=== PATIENT | male | born 1965 | race Caucasian/White ===

== ENCOUNTER 2017-12-10 14:03 | Inpatient (IN) | END 2017-12-16 12:14 | disposition home or self-care (01) | DRG 642 ==

== ENCOUNTER 2018-03-05 01:03 | Inpatient (IN) | END 2018-03-05 19:00 | disposition home or self-care (01) | DRG 440 ==

== ENCOUNTER 2018-03-11 11:53 | Inpatient (IN) | END 2018-03-13 18:30 | disposition home or self-care (01) | DRG 642 ==

== ENCOUNTER 2018-06-26 16:49 | Inpatient (IN) | payer OTHER ==
[~2018-06-26] VITALS: Ht 175.3 cm; Wt 93.8 kg
[~2018-06-26 16:49] MED LIST: ALBU90AE INHALATION; ATEN-51 PO; ATOR-2 PO; CLON-412 PO; DULO30CA45 PO; GABA400C14 PO; GEMF600T8 PO; HYDR-843 PO; HYDR2TAB3 PO; ICOS1CAP PO; INSU100C SQ; INSU100I33 SC; LIDO700A29 TP; LIRA0.6P2 SQ; LISI10TA2 PO; METF-849 PO; METO10TA3 PO; NOVO3I SC; OMEG-157 PO; OXYC-438 PO; PANT40TA4 PO; PHEN37.53 PO; RANI-513 PO; SUMA5SPR2 NASAL; TERB250T46 PO; ZOLP10TA5 PO; [UNRECOGNIZED DRUG - CODE] TOP
[2018-06-26] MEDS ORDERED: ASPIRIN 81 MG TAB PO STA (18:46)
[2018-06-26] MEDS ORDERED: NITROGLYCERIN 2% 1 GM OINT PKT TD STA (18:46)
[2018-06-26] MEDS ORDERED: ONDANSETRON 4 MG INJ IV STA (18:52)
[2018-06-26] MEDS ORDERED: HYDROmorphONE 2 MG/ML SYG IV STA ×2 (18:52→21:34)
[2018-06-26] MEDS ORDERED: NITROGLYCERIN (SL) 0.4 MG TAB SL PRN ×2 (19:00→20:30)
--- NOTE | 2018-06-26 20:23 | ERD ---
ER Documentation Chief Complaint Chief Complaint CHEST PAIN , ONSET 1200 TODAY , LT ARM NUMBNESS X FEW DAYS HPI Patient is a 53-year-old male with familiar hypertriglyceridemia, diabetes, and hypertension as well as smoking who presents with chest pain. Symptoms started today at 12 PM. His triglycerides were 3195 on June 22. He has midepigastric pain and describes a "pressure" in his midsternal area which radiates to his back. He says the symptoms have been constant. Upon review of old medical records this is the patient's fourth visit to the ER since 2018. ROS All systems reviewed and are negative except as per history of present illness. Medications Home Meds Active Scripts Pantoprazole (Protonix) 40 Mg Tabec, 40 MG PO DAILY for 30 Days, #30 TAB 4 Refills Prov:CHANTELLE PARRA MD 12/16/17 Atenolol* (Atenolol*) 25 Mg Tablet, 25 MG PO BID for 30 Days, #60 TAB 5 Refills Prov:CHANTELLE PARRA MD 12/16/17 Rogers-3/Dha/Epa/Fish Oil (FISH OIL EC 1,000 MG SOFTGEL) 1 Each Capsule.dr, 2000 MG PO BID for 30 Days, #60 CAP 4 Refills Prov:CHANTELLE PARRA MD 12/16/17 Lidocaine (Lidoderm) 1 Each Adh..patch, 1 EACH TP DAILY for 30 Days, #30 PATCH 6 Refills Prov:CHANTELLE PARRA MD 12/16/17 Oxycodone HCl/Acetaminophen (Oxycodone-Acetaminophen 5-325) 1 Each Tablet, 1 TAB PO Q6H PRN for PAIN LEVEL 4-6 for 7 Days, #20 TAB Prov:CHANTELLE PARRA MD 12/16/17 Neomycin/Polymyxin/Bacitr/Hc* (Cortisporin* Topical) 15 Gm Oint, 1 APPLIC TOP TID for 10 Days, #1 TUB 2 Refills Prov:CHANTELLE PARRA MD 12/16/17 Metformin* (Glucophage*) 500 Mg Tab, 500 MG PO BID WITH MEALS for 30 Days, #60 TAB 3 Refills Prov:CHANTELLE PARRA MD 12/16/17 Insulin Aspart* (Novolog Insulin Pen*) 100 Unit/Ml Soln, 10 UNIT SC WITH MEALS for 30 Days, #5 EA 5 Refills Prov:CHANTELLE PARRA MD 12/16/17 Gemfibrozil* (Gemfibrozil*) 600 Mg Tablet, 600 MG PO BID for 30 Days, #60 TAB 3 Refills Prov:CHANTELLE PARRA MD 12/14/17 Reported Medications Phentermine Hcl (Phentermine Hcl) 37.5 Mg Tablet, 37.5 MG PO DAILY, TAB 03/12/18 Icosapent Ethyl (VASCEPA) 1 Gm Capsule, 3 GM PO TIDM A, CAP 03/08/18 Ranitidine Hcl* (Ranitidine Hcl*) 75 Mg Tablet, 150 MG PO BID PRN for HEARTBURN, #60 TAB 03/05/18 Lisinopril* (Lisinopril*) 10 Mg Tablet, 10 MG PO DAILY, #30 TAB 03/05/18 Atorvastatin* (Atorvastatin*) 80 Mg Tablet, MG PO QHS, #30 TAB 03/05/18 Phentermine Hcl (Phentermine Hcl) 37.5 Mg Tablet, 37.5 MG PO DAILY, TAB 03/05/18 Insulin Lispro (Humalog) 100 Unit/1 Ml Cartridge, 5 UNIT SQ AC A, EA 03/05/18 Terbinafine* (Lamisil*) 250 Mg Tablet, 250 MG PO DAILY, TAB 12/10/17 Metoclopramide Hcl* (Metoclopramide Hcl*) 10 Mg Tablet, 10 MG PO Q8H PRN for NAUSEA AND OR VOMITING, TAB 12/10/17 Gabapentin* (Gabapentin*) 400 Mg Capsule, 400 MG PO TID, #90 CAP 12/10/17 Liraglutide (Victoza 3-Alvaro) 0.6 Mg/0.1 Ml Pen.injctr, 1.8 MG SQ DAILY, SYR 12/10/17 Sumatriptan* Nasal (Sumatriptan* Nasal) 5 Mg [place], 5 MG NASAL DAILY PRN for MIGRAINE HEADACHE, SPRAY If headache returns/persists, may repeat dose once after 2 hours; MAX 40 mg/24 hours 12/10/17 Clonazepam* (Klonopin*) 1 Mg Tablet, 1 MG PO QID PRN for ANXIETY, TAB 12/10/17 Hydromorphone Hcl* (Hydromorphone Hcl*) 2 Mg Tablet, 2 MG PO TID PRN for PAIN, TAB 12/10/17 Duloxetine Hcl* (Cymbalta*) 30 Mg Capsule.dr, 60 MG PO DAILY, CAP 12/10/17 Insulin Glargine,Hum.rec.anlog (Basaglar Kwikpen U-100) 100 Unit/1 Ml Insuln.pen, 20 UNIT SC QHS, EA 12/10/17 Zolpidem Tartrate* (Zolpidem Tartrate*) 10 Mg Tablet, 10 MG PO QHS PRN for INSOMNIA, #30 TAB 12/10/17 Albuterol Sulfate (Proair Respiclick) 90 Mcg Aer.pow.ba, 1 PUFF INHALATION Q4, #1 BOTTLE 12/10/17 Hydroxyzine Hcl* (Hydroxyzine Hcl*) 25 Mg Tablet, 25 MG PO Q8H PRN for ITCHING, #30 TAB 12/10/17 Allergies Allergies: Coded Allergies: hydrocodone (Verified Allergy, Unknown, 12/10/17) morphine (Verified Allergy, Unknown, 12/10/17) PMhx/Soc History of Surgery: Yes (knee) Anesthesia Reaction: No Hx Neurological Disorder: Yes (neuropathy) Hx Respiratory Disorders: No Hx Cardiac Disorders: Yes (hypertension) Hx Psychiatric Problems: No Hx Alcohol Use: No Hx Substance Use: No Hx Tobacco Use: Yes Smoking Status: Current some day smoker FmHx Family History: coronary disease Physical Exam Vitals Vital Signs Date Temp Pulse Resp B/P (MAP) Pulse Ox O2 O2 Flow FiO2 Time Delivery Rate 06/26/18 97.1 121 18 162/98 100 16:52 (119) Physical Exam Const: No acute distress Head: Atraumatic Eyes: Normal Conjunctiva ENT: Normal External Ears, Nose and Mouth. Neck: Full range of motion. No meningismus. Resp: Clear to auscultation bilaterally Cardio: Regular rate and rhythm, no murmurs Abd: Soft, non tender, non distended. Normal bowel sounds Skin: No petechiae or rashes Back: No midline or flank tenderness Ext: No cyanosis, or edema Neur: Awake and alert Psych: Tearful at times Result Diagram: 06/26/18190906/26/181909 Results 24 hrs Laboratory Tests Test 06/26/18 19:10 White Blood Count 7.3 10^3/ul Red Blood Count 5.22 10^6/ul Hemoglobin 16.0 g/dl Hematocrit 46.1 % Mean Corpuscular Volume 88.3 fl Mean Corpuscular Hemoglobin 30.7 pg Mean Corpuscular Hemoglobin Concent 34.7 g/dl Red Cell Distribution Width 12.7 % Platelet Count 207 10^3/UL Mean Platelet Volume 10.3 fl Immature Granulocytes % 0.500 % Neutrophils % 66.0 % Lymphocytes % 26.0 % Monocytes % 6.4 % Eosinophils % 0.8 % Basophils % 0.3 % Nucleated Red Blood Cells % 0.0 /100WBC Immature Granulocytes # 0.040 10^3/ul Neutrophils # 4.8 10^3/ul Lymphocytes # 1.9 10^3/ul Monocytes # 0.5 10^3/ul Eosinophils # 0.1 10^3/ul Basophils # 0.0 10^3/ul Nucleated Red Blood Cells # 0.0 10^3/ul Sodium Level 136 mmol/L Potassium Level 4.1 mmol/L Chloride Level 103 mmol/L Carbon Dioxide Level 24 mmol/L Anion Gap 9 Blood Urea Nitrogen 9 mg/dl Creatinine 0.83 mg/dl Est Glomerular Filtrat Rate mL/min > 60 mL/min Glucose Level 189 mg/dl Calcium Level 9.6 mg/dl Troponin I < 0.012 ng/ml Triglycerides Level > 1575 mg/dl Cholesterol Level 239 mg/dl LDL Cholesterol, Calculated mg/dl HDL Cholesterol 25 mg/dl Cholesterol/HDL Ratio 9.5 RATIO Current Medications Medications Dose Sig/Hayes Start Time Status Last (Trade) Ordered Route PRN Stop Time Admin Dose Reason Admin Aspirin 162 mg ONCE STAT 06/26/18 DC 06/26/18 (Aspirin) PO 18:46 19:24 06/26/18 18:47 1 inch ONCE STAT 06/26/18 DC 06/26/18 Nitroglycerin TD 18:46 19:24 06/26/18 18:47 (Nitroglyceri n 2% Oint) 1 tab Q5M UP TO 3 06/26/18 Nitroglycerin DOSES PRN 19:00 SL .CHEST (Nitroglyceri PAIN n (Sl Tab) 0.4 Mg) 1 mg ONCE STAT 06/26/18 DC 06/26/18 Hydromorphone IV 18:52 19:24 HCl 06/26/18 18:53 (Dilaudid) Ondansetron 4 mg ONCE STAT 06/26/18 DC 06/26/18 HCl (Zofran IV 18:52 19:23 Inj) 06/26/18 18:53 Procedures/MDM EKG read by me: Rate/Rhythm: Sinus tachycardia Intervals: Normal Impression: Tachycardia without ischemia Chest x-ray read by radiology. Smoking Cessation Therapy: Pt. was lectured for greater than 3 minutes on the health risks of continued smoking and the benefits of cessation. Patient is a 53-year-old male with multiple cardiac risk factors who presents with chest pain. Initial troponin is negative. His triglycerides are extremely high however. The patient will be admitted to the care of Dr. Sun to the ICU. He was given aspirin and nitroglycerin. He will be given 1 L of normal saline for fluid resuscitation. Dr. Clark is his specimen accessioner. Critical Care: Time: 35 minutes excluding all billable procedures. Treatments/Evaluations: Close monitoring and treatment of unstable vital signs, cardiorespiratory, and neurologic status, while maintaining tight balance of fluid, respiratory, and cardiac interventions. Departure Diagnosis: Primary Impression: Hypertriglyceridemia Additional Impression: Chest pain Chest pain type: unspecified Qualified Codes: R07.9 - Chest pain, unspec ified Condition: TONY Tran MD Jun 26, 2018 20:23
[2018-06-26] MEDS ORDERED: NACL 0.9% 3 ML SYG IV SCH (20:30)
[2018-06-26] MEDS ORDERED: ONDANSETRON 4 MG INJ IV PRN (20:30)
[2018-06-26] MEDS ORDERED: DEXTROSE 50% 50 ML SYRINGE IV PRN ×2 (20:30)
[2018-06-26] MEDS ORDERED: INSULIN HUMAN REGULAR 100 UNIT in SOD CHLORIDE 0.9% 99 ML IV SCH (20:30)
[2018-06-26] MEDS ORDERED: morphine 2 MG INJ IV PRN (20:30)
[2018-06-26] MEDS ORDERED: LORAZEPAM 2 MG INJ IV PRN (21:00)
[2018-06-26] MEDS ORDERED: LABETALOL HCL 20MG INJ IV PRN (21:00)
[2018-06-26] MEDS ORDERED: ALBUTEROL/IPRATROPIUM (NEB) 3 ML AMP HHN PRN (21:00)
--- NOTE | 2018-06-26 21:25 | HP ---
Date/Time of Note Date/Time of Note DATE: 06/26/18 TIME: 21:24 Assessment/Plan VTE Prophylaxis Pharmacological prophylaxis: other Lines/Catheters IV Catheter Type (from Nrsg): Saline Lock Assessment/Plan Hospital Course Objective Physical exam General: Patient is laying in bed and answers questions appropriately, very anxious Mentation: Patient is alert and oriented 4, Head: Normocephalic atraumatic Eyes: EOMI, pupils reactive to light Neck: Supple, nontender, midline Respiratory: Clear to auscultation bilaterally Cardiovascular: Tachycardic rate, no obvious murmurs Gastrointestinal: non-tender to palpation, bowel sounds heard. Neurological: Moves all extremities spontaneously Skin: No new skin lesions Assessment and plan Chest pain -Trend troponins -Aspirin -Statin -EKG noted Epigastric pain -Lipase negative -Monitor -Continue Protonix Hypertriglyceridemia -ICU for insulin drip -Day team physician will need to arrange plasmapheresis as in the past this is the only way that his triglycerides decreased -Atorvastatin, fish oil, gemfibrozil continued Left upper extremity numbness -Likely secondary to patient's worsening peripheral neuropathy however will need to rule out CVA, CT head pending, stat Peripheral neuropathy -Continue gabapentin Tachycardia -Patient is very anxious, use Ativan as needed Anxiety -IV Ativan as needed Substance abuse, history of -Urine drug screen pending Diabetes mellitus -Patient will be on insulin drip for elevated triglycerides Hypertension -Control as needed, resume home meds Disposition -Send to the ICU for insulin drip for hypertriglyceridemia, the team physician will need to arrange plasmapheresis Result Diagram: 06/26/18190906/26/181909 Results 24hrs Laboratory Tests Test 06/26/18 19:10 White Blood Count 7.3 # Red Blood Count 5.22 Hemoglobin 16.0 Hematocrit 46.1 Mean Corpuscular Volume 88.3 Mean Corpuscular Hemoglobin 30.7 Mean Corpuscular Hemoglobin Concent 34.7 Red Cell Distribution Width 12.7 Platelet Count 207 Mean Platelet Volume 10.3 Immature Granulocytes % 0.500 H Neutrophils % 66.0 Lymphocytes % 26.0 Monocytes % 6.4 Eosinophils % 0.8 Basophils % 0.3 Nucleated Red Blood Cells % 0.0 Immature Granulocytes # 0.040 H Neutrophils # 4.8 Lymphocytes # 1.9 Monocytes # 0.5 Eosinophils # 0.1 Basophils # 0.0 Nucleated Red Blood Cells # 0.0 Sodium Level 136 Potassium Level 4.1 Chloride Level 103 Carbon Dioxide Level 24 Anion Gap 9 Blood Urea Nitrogen 9 Creatinine 0.83 Est Glomerular Filtrat Rate mL/min > 60 Glucose Level 189 Calcium Level 9.6 Troponin I < 0.012 Triglycerides Level > 1575 H Cholesterol Level 239 H LDL Cholesterol, Calculated HDL Cholesterol 25 L Cholesterol/HDL Ratio 9.5 Lipase 121 HPI/ROS Admit Date/Time Admit Date/Time Hx of Present Illness Patient is a male with past medical history significant for familial trait hypertriglyceridemia, diabetes mellitus, hypertension, chronic pain in the back, substance abuse, severe anxiety who presents to [facility] for chest and abdominal pain. Patient states for the past 2 days and have patient has been having worsening of his chronic pancreatitis pain in his epigastric area as well as a substernal pressure as well as new onset numbness in the left upper extremity. Patient stated that he did not come in before because he thought the numbness was secondary to his chronic neuropathy however he is concerned. Patient also says that he has had some nausea and worsening of his back pain. Patient states he continues to see all his doctors and takes his medications on a normal basis. Patient denies any new symptoms regarding his lower extremity neuropathy, denies headache, denies dizziness. PMH/Family/Social Past Medical History Medications Current Medications Nitroglycerin (Nitroglycerin (Sl Tab) 0.4 Mg) 1 tab Q5M UP TO 3 DOSES PRN SL .CHEST PAIN; Start 06/26/18 at 19:00 Dextrose/Sodium Chloride 1,000 ml @ 125 mls/hr Q8H IV ; Start 06/26/18 at 20:26 IV Flush (NS 3 ml) 3 ml PER PROTOCOL IV ; Start 06/26/18 at 20:30 Ondansetron HCl (Zofran Inj) 4 mg Q6H PRN IV NAUSEA/VOMITING; Start 06/26/18 at 20:30 Nitroglycerin (Nitroglycerin (Sl Tab) 0.4 Mg) 1 tab Q5M PRN SL .CHEST PAIN; Start 06/26/18 at 20:30 Oxycodone/ Acetaminophen (Percocet (5/ 325)) 1 tab Q6H PRN PO .PAINS 4-6; Start 06/26/18 at 20:30 Diagnostic Test (Pha) (Accu-Chek) 1 ea Q1H XX ; Start 06/26/18 at 20:30 Insulin Human Regular 100 unit/ Sodium Chloride 100 ml @ 0 mls/hr PER PROTOCOL IV ; Start 06/26/18 at 20:30 Miscellaneous Information (* Miscellaneous Pharmacy Order) Treatment of Hypoglycemia: 1.BG 51... Per protocol XX ; Start 06/26/18 at 20:30 Dextrose (D50w Syringe) 25 ml Q15M PRN IV .DECREASED GLUCOSE; Start 06/26/18 at 20:30 Dextrose (D50w Syringe) 50 ml Q15M PRN IV .DECREASED GLUCOSE; Start 06/26/18 at 20:30 Hydromorphone HCl (Dilaudid) 0.5 mg Q4H PRN IV SEVERE PAIN LEVEL 7-10; Start 06/26/18 at 20:30 Atorvastatin Calcium (Lipitor) 80 mg HS PO ; Start 06/26/18 at 21:00 Albuterol/ Ipratropium (Duoneb) 3 ml Q4H RESP THERAPY PRN HHN SHORTNESS OF BREATH; Start 06/26/18 at 21:00 Lisinopril (Zestril) 10 mg DAILY PO ; Start 06/27/18 at 09:00 Lorazepam (Ativan) 0.5 mg Q6H PRN IV anxiety; Start 06/26/18 at 21:00 Duloxetine HCl (Cymbalta) 60 mg DAILY PO ; Start 06/27/18 at 09:00 Labetalol HCl (Labetalol) 10 mg Q4 PRN IV sbp >160; Start 06/26/18 at 21:00 Gemfibrozil (Lopid) 600 mg BID PO ; Start 06/26/18 at 21:00 Pantoprazole (Protonix Iv) 40 mg DAILY@06 IV ; Start 06/27/18 at 06:00 Atenolol (Tenormin) 25 mg BID PO ; Start 06/26/18 at 21:30 Aspirin (Aspirin) 81 mg DAILY PO ; Start 06/27/18 at 09:00 Fish Oil (Fish Oil) 2,000 mg BID PO ; Start 06/27/18 at 09:00 Niacin (Niacin) 100 mg DAILY PO ; Start 06/27/18 at 09:00 Coded Allergies: hydrocodone (Verified Allergy, Unknown, 12/10/17) morphine (Verified Allergy, Unknown, 12/10/17) Past Surgical History Past Surgical Hx: no surgical history Family History Significant Family History: heart disease Social History Smoking Status: Current some day smoker Exam/Review of Systems Vital Signs Vitals Vital Signs Date Temp Pulse Resp B/P (MAP) Pulse Ox O2 O2 Flow FiO2 Time Delivery Rate 06/26/18 97.1 121 18 162/98 100 16:52 (119) SUGAR GILES Jun 26, 2018 21:25
[2018-06-26] MEDS: ACCU-CHEK XX SCH ×3 (21:30→23:10)
[2018-06-26] MEDS ORDERED: LORAZEPAM 2 MG INJ IV ONE (22:00)
[2018-06-26 23:00] VITALS: BP 132/74; PULSE 133; RESP 18; Ht 175.3 cm; Wt 93.8 kg
[2018-06-26] MEDS: DEXTROSE 5%-0.45% NACL 1,000 ML IV SCH (23:08)
[2018-06-26] MEDS: ATORVASTATIN 80 MG TAB PO SCH (23:14)
[2018-06-26] MEDS: GEMFIBROZIL 600 MG TAB PO SCH (23:15)
[2018-06-26] MEDS: ATENOLOL 25 MG TAB PO SCH (23:15)
[2018-06-26] MEDS: HYDROmorphONE 0.5 MG/0.5 ML SYG IV PRN (23:53)
[2018-06-26] MEDS: ZOLPIDEM 5 MG TAB PO PRN (23:53)
[2018-06-27] VITALS (23 sets, daily range): BP systolic 82–135; BP diastolic 45–90; PULSE 67–116; RESP 13–33
[2018-06-27] MEDS: ACCU-CHEK XX SCH ×20 (00:07→18:30)
[2018-06-27] MEDS: HYDROmorphONE 0.5 MG/0.5 ML SYG IV PRN ×2 (04:59→16:13)
[2018-06-27] MEDS ORDERED: PANTOPRAZOLE (EC) 40 MG TAB PO SCH (06:00)
[2018-06-27] MEDS: PANTOPRAZOLE 40 MG INJ IV SCH (06:08)
[2018-06-27] MEDS: DEXTROSE 5%-0.45% NACL 1,000 ML IV SCH ×3 (06:08→23:17)
--- NOTE | 2018-06-27 08:47 | PN ---
Date/Time of Note Date/Time of Note DATE: 06/27/18 TIME: 08:34 Assessment/Plan VTE Prophylaxis SCD applied (from Nsg): Yes Pharmacological prophylaxis: other Lines/Catheters IV Catheter Type (from Nrsg): Peripheral IV Assessment/Plan Hospital Course S: Pt still on insulin drip. O: VS - see below Physical exam General: Patient lying in bed, somewhat anxious Mentation: Patient is alert and oriented 4, Head: Normocephalic atraumatic Eyes: EOMI, pupils reactive to light Neck: Supple, nontender, midline Respiratory: Clear to auscultation bilaterally Cardiovascular: Tachycardic rate, no obvious murmurs Gastrointestinal: non-tender to palpation, bowel sounds heard. Neurological: Moves all extremities spontaneously Assessment and plan: 53 M p/w: # Chest pain- troponins neg x 2 thus far-EKG noted -Aspirin, monitor 3rd trop -Statin # Epigastric pain-Lipase negative -Monitor -Continue Protonix # Hypertriglyceridemia - familial, TG today > 1575 -continue ICU for insulin drip -[facility] On[facility] will arrange for plasmapheresis as in the past this is the only way that his triglycerides decreased - will first get Talib placed for access (consult vascular) - continue Atorvastatin, fish oil, gemfibrozil continued # Left upper extremity numbness-Likely secondary to patient's worsening peripheral neuropathy - head Ct neg - monitor # Peripheral neuropathy -Continue gabapentin # Tachycardia -Patient still somewhat anxious, use Ativan as needed # Anxiety -IV Ativan as needed # Substance abuse, history of this -Urine drug screen pending - counseled on cessation # Diabetes mellitus - A1c = 7.0 -Patient will be on insulin drip for elevated triglycerides, but monitor sugars as well. # Hypertension -Control as needed, resume home meds Critical care time today = 45 min. Result Diagram: 06/27/1812 06/27/1812 Results 24hrs Laboratory Tests Test 06/26/18 19:10 06/26/18 23:14 06/27/18 00:26 06/27/18 00:29 White Blood Count 7.3 # Red Blood Count 5.22 Hemoglobin 16.0 Hematocrit 46.1 Mean Corpuscular 88.3 Volume Mean Corpuscular 30.7 Hemoglobin Mean Corpuscular 34.7 Hemoglobin Concent Red Cell 12.7 Distribution Width Platelet Count 207 Mean Platelet Volume 10.3 Immature 0.500 H Granulocytes % Neutrophils % 66.0 Lymphocytes % 26.0 Monocytes % 6.4 Eosinophils % 0.8 Basophils % 0.3 Nucleated Red Blood 0.0 Cells % Immature 0.040 H Granulocytes # Neutrophils # 4.8 Lymphocytes # 1.9 Monocytes # 0.5 Eosinophils # 0.1 Basophils # 0.0 Nucleated Red Blood 0.0 Cells # Sodium Level 136 Potassium Level 4.1 Chloride Level 103 Carbon Dioxide Level 24 Anion Gap 9 Blood Urea Nitrogen 9 Creatinine 0.83 Est Glomerular > 60 Filtrat Rate mL/min Glucose Level 189 Calcium Level 9.6 Troponin I < 0.012 < 0.012 Triglycerides Level > 1575 H Cholesterol Level 239 H LDL Cholesterol, Calculated HDL Cholesterol 25 L Cholesterol/HDL 9.5 Ratio Lipase 121 Bedside Glucose 146 141 Creatine Kinase 152 Creatine Kinase 1.0 Index Creatinine Kinase MB 1.57 (Mass) Test 06/27/18 01:38 06/27/18 02:37 06/27/18 04:00 06/27/18 05:00 Bedside Glucose 147 156 165 129 Test 06/27/18 06:11 06/27/18 06:12 06/27/18 06:53 06/27/18 07:51 Bedside Glucose 123 142 129 White Blood Count 7.3 Red Blood Count 4.92 Hemoglobin 14.8 Hematocrit 44.5 Mean Corpuscular 90.4 Volume Mean Corpuscular 30.1 Hemoglobin Mean Corpuscular 33.3 Hemoglobin Concent Red Cell 12.7 Distribution Width Platelet Count 203 Mean Platelet Volume 10.6 H Immature 0.500 H Granulocytes % Neutrophils % 54.4 Lymphocytes % 35.1 Monocytes % 8.3 Eosinophils % 1.2 Basophils % 0.5 Nucleated Red Blood 0.0 Cells % Immature 0.040 H Granulocytes # Neutrophils # 4.0 Lymphocytes # 2.6 Monocytes # 0.6 Eosinophils # 0.1 Basophils # 0.0 Nucleated Red Blood 0.0 Cells # Sodium Level 139 Potassium Level 3.8 Chloride Level 99 Carbon Dioxide Level 25 Anion Gap 15 H Blood Urea Nitrogen 8 Creatinine 0.94 Est Glomerular > 60 Filtrat Rate mL/min Glucose Level 113 # Hemoglobin A1c 7.0 H Calcium Level 9.2 Magnesium Level 1.7 Total Bilirubin 0.3 Direct Bilirubin 0.00 Indirect Bilirubin 0.3 Aspartate Amino 22 Transf (AST/SGOT) Alanine 18 Aminotransferase (AL T/SGPT) Alkaline Phosphatase 65 Creatine Kinase 171 Creatine Kinase 1.0 Index Creatinine Kinase MB 1.65 (Mass) Troponin I < 0.012 Total Protein 7.6 Albumin 4.3 Globulin 3.30 H Albumin/Globulin 1.30 Ratio Triglycerides Level > 1575 H Cholesterol Level 253 H LDL Cholesterol, Calculated HDL Cholesterol 24 L Cholesterol/HDL 10.5 Ratio Thyroid Stimulating 3.810 Hormone (TSH) Exam/Review of Systems Exam Vitals Vital Signs Date Temp Pulse Resp B/P (MAP) Pulse Ox O2 O2 Flow FiO2 Time Delivery Rate 06/27/18 97.8 92 13 134/64 94 Room Air 08:00 (87) Intake and Output 06/26/18 06/26/18 06/27/18 1414:59 22:59 06:59 IntakeIntake Total 1809.0 ml OutputOutput Total 680 ml BalanceBalance 1129.0 ml Results Results 24hrs Laboratory Tests Test 06/26/18 19:10 06/26/18 23:14 06/27/18 00:26 06/27/18 00:29 White Blood Count 7.3 # Red Blood Count 5.22 Hemoglobin 16.0 Hematocrit 46.1 Mean Corpuscular 88.3 Volume Mean Corpuscular 30.7 Hemoglobin Mean Corpuscular 34.7 Hemoglobin Concent Red Cell 12.7 Distribution Width Platelet Count 207 Mean Platelet Volume 10.3 Immature 0.500 H Granulocytes % Neutrophils % 66.0 Lymphocytes % 26.0 Monocytes % 6.4 Eosinophils % 0.8 Basophils % 0.3 Nucleated Red Blood 0.0 Cells % Immature 0.040 H Granulocytes # Neutrophils # 4.8 Lymphocytes # 1.9 Monocytes # 0.5 Eosinophils # 0.1 Basophils # 0.0 Nucleated Red Blood 0.0 Cells # Sodium Level 136 Potassium Level 4.1 Chloride Level 103 Carbon Dioxide Level 24 Anion Gap 9 Blood Urea Nitrogen 9 Creatinine 0.83 Est Glomerular > 60 Filtrat Rate mL/min Glucose Level 189 Calcium Level 9.6 Troponin I < 0.012 < 0.012 Triglycerides Level > 1575 H Cholesterol Level 239 H LDL Cholesterol, Calculated HDL Cholesterol 25 L Cholesterol/HDL 9.5 Ratio Lipase 121 Bedside Glucose 146 141 Creatine Kinase 152 Creatine Kinase 1.0 Index Creatinine Kinase MB 1.57 (Mass) Test 06/27/18 01:38 06/27/18 02:37 06/27/18 04:00 06/27/18 05:00 Bedside Glucose 147 156 165 129 Test 06/27/18 06:11 06/27/18 06:12 06/27/18 06:53 06/27/18 07:51 Bedside Glucose 123 142 129 White Blood Count 7.3 Red Blood Count 4.92 Hemoglobin 14.8 Hematocrit 44.5 Mean Corpuscular 90.4 Volume Mean Corpuscular 30.1 Hemoglobin Mean Corpuscular 33.3 Hemoglobin Concent Red Cell 12.7 Distribution Width Platelet Count 203 Mean Platelet Volume 10.6 H Immature 0.500 H Granulocytes % Neutrophils % 54.4 Lymphocytes % 35.1 Monocytes % 8.3 Eosinophils % 1.2 Basophils % 0.5 Nucleated Red Blood 0.0 Cells % Immature 0.040 H Granulocytes # Neutrophils # 4.0 Lymphocytes # 2.6 Monocytes # 0.6 Eosinophils # 0.1 Basophils # 0.0 Nucleated Red Blood 0.0 Cells # Sodium Level 139 Potassium Level 3.8 Chloride Level 99 Carbon Dioxide Level 25 Anion Gap 15 H Blood Urea Nitrogen 8 Creatinine 0.94 Est Glomerular > 60 Filtrat Rate mL/min Glucose Level 113 # Hemoglobin A1c 7.0 H Calcium Level 9.2 Magnesium Level 1.7 Total Bilirubin 0.3 Direct Bilirubin 0.00 Indirect Bilirubin 0.3 Aspartate Amino 22 Transf (AST/SGOT) Alanine 18 Aminotransferase (AL T/SGPT) Alkaline Phosphatase 65 Creatine Kinase 171 Creatine Kinase 1.0 Index Creatinine Kinase MB 1.65 (Mass) Troponin I < 0.012 Total Protein 7.6 Albumin 4.3 Globulin 3.30 H Albumin/Globulin 1.30 Ratio Triglycerides Level > 1575 H Cholesterol Level 253 H LDL Cholesterol, Calculated HDL Cholesterol 24 L Cholesterol/HDL 10.5 Ratio Thyroid Stimulating 3.810 Hormone (TSH) Medications Medication Current Medications Dextrose/Sodium Chloride 1,000 ml @ 125 mls/hr Q8H IV Last administered on 06/27/18at 06:08; Admin Dose 125 MLS/HR; Start 06/26/18 at 20:26 IV Flush (NS 3 ml) 3 ml PER PROTOCOL IV ; Start 06/26/18 at 20:30 Ondansetron HCl (Zofran Inj) 4 mg Q6H PRN IV NAUSEA/VOMITING; Start 06/26/18 at 20:30 Nitroglycerin (Nitroglycerin (Sl Tab) 0.4 Mg) 1 tab Q5M PRN SL .CHEST PAIN; Start 06/26/18 at 20:30 Oxycodone/ Acetaminophen (Percocet (5/ 325)) 1 tab Q6H PRN PO .PAINS 4-6; Start 06/26/18 at 20:30 Diagnostic Test (Pha) (Accu-Chek) 1 ea Q1H XX Last administered on 06/27/18at 08:20; Admin Dose 1 EA; Start 06/26/18 at 20:30 Insulin Human Regular 100 unit/ Sodium Chloride 100 ml @ 0 mls/hr PER PROTOCOL IV Last administered on 06/26/18at 23:49; Admin Dose 1 MLS/HR; Start 06/26/18 at 20:30 Miscellaneous Information (* Miscellaneous Pharmacy Order) Treatment of Hypoglycemia: 1.BG 51... Per protocol XX ; Start 06/26/18 at 20:30 Dextrose (D50w Syringe) 25 ml Q15M PRN IV .DECREASED GLUCOSE; Start 06/26/18 at 20:30 Dextrose (D50w Syringe) 50 ml Q15M PRN IV .DECREASED GLUCOSE; Start 06/26/18 at 20:30 Hydromorphone HCl (Dilaudid) 0.5 mg Q4H PRN IV SEVERE PAIN LEVEL 7-10 Last administered on 06/27/18at 04:59; Admin Dose 0.5 MG; Start 06/26/18 at 20:30 Atorvastatin Calcium (Lipitor) 80 mg HS PO Last administered on 06/26/18at 23:14; Admin Dose 80 MG; Start 06/26/18 at 21:00 Albuterol/ Ipratropium (Duoneb) 3 ml Q4H RESP THERAPY PRN HHN SHORTNESS OF BREATH; Start 06/26/18 at 21:00 Lisinopril (Zestril) 10 mg DAILY PO ; Start 06/27/18 at 09:00 Lorazepam (Ativan) 0.5 mg Q6H PRN IV anxiety; Start 06/26/18 at 21:00 Duloxetine HCl (Cymbalta) 60 mg DAILY PO ; Start 06/27/18 at 09:00 Labetalol HCl (Labetalol) 10 mg Q4 PRN IV sbp >160; Start 06/26/18 at 21:00 Gemfibrozil (Lopid) 600 mg BID PO Last administered on 06/26/18at 23:15; Admin Dose 600 MG; Start 06/26/18 at 21:00 Pantoprazole (Protonix Iv) 40 mg DAILY@06 IV Last administered on 06/27/18at 06:08; Admin Dose 40 MG; Start 06/27/18 at 06:00 Atenolol (Tenormin) 25 mg BID PO Last administered on 06/26/18at 23:15; Admin Dose 25 MG; Start 06/26/18 at 21:30 Aspirin (Aspirin) 81 mg DAILY PO ; Start 06/27/18 at 09:00 Fish Oil (Fish Oil) 2,000 mg BID PO ; Start 06/27/18 at 09:00 Gabapentin (Neurontin) 300 mg TID PO ; Start 06/27/18 at 09:00 Niacin (Niacin) 100 mg DAILY PO ; Start 06/27/18 at 09:00 Zolpidem Tartrate (Ambien) 10 mg HS PRN PO INSOMNIA Last administered on 06/26/18at 23:53; Admin Dose 10 MG; Start 06/27/18 at 00:00 Miscellaneous Information Patients own medicat... BID@ XX ; Start 06/27/18 at 10:00 BETTY KENNEY Jun 27, 2018 08:47
[2018-06-27] MEDS: DULOXETINE 30 MG CAP DR PO SCH (08:49)
[2018-06-27] MEDS: FISH OIL 1,000 MG CAP PO SCH ×2 (08:51→20:26)
[2018-06-27] MEDS: LISINOPRIL 10 MG TAB PO SCH (08:51)
[2018-06-27] MEDS: GEMFIBROZIL 600 MG TAB PO SCH ×2 (08:51→20:25)
[2018-06-27] MEDS: ATENOLOL 25 MG TAB PO SCH ×2 (08:52→20:25)
[2018-06-27] MEDS: GABAPENTIN 300 MG CAP PO SCH ×3 (08:52→20:25)
[2018-06-27] MEDS ORDERED: ASPIRIN 81 MG TAB PO SCH ×2 (09:00)
[2018-06-27] MEDS ORDERED: NIACIN 100 MG TAB PO SCH (09:00)
[2018-06-27] MEDS ORDERED: ASPIRIN 300 MG SUPP PR SCH (09:00)
[2018-06-27] MEDS: NIACIN 50 MG TAB PO SCH (09:28)
[2018-06-27] MEDS: ASPIRIN 325 MG TAB PO SCH (09:28)
[2018-06-27] MEDS ORDERED: HEPARIN 1000 UNITS/ML 10 ML INJ ONE (11:28)
--- NOTE | 2018-06-27 12:50 | CONS ---
Assessment/Plan Assessment/Plan Assessment/Plan (Daily) Peripheral neuropathy We will proceed with a dialysis catheter for plasmapheresis Consultation Date/Type/Reason Admit Date/Time Date/Time of Note DATE: 06/27/18 TIME: 12:48 Hx of Present Illness Peripheral neuropathy Respiratory: no complaints Cardiovascular: no complaints Gastrointestinal: no complaints Genitourinary: no complaints Musculoskeletal: no complaints Skin: no complaints Neurologic: no complaints Lymphatic: no complaints Past Medical History Home Meds Active Scripts Pantoprazole (Protonix) 40 Mg Tabec, 40 MG PO DAILY for 30 Days, #30 TAB 4 Refills Prov:CHANTELLE PARRA MD 12/16/17 Atenolol* (Atenolol*) 25 Mg Tablet, 25 MG PO BID for 30 Days, #60 TAB 5 Refills Prov:CHANTELLE PARRA MD 12/16/17 [place]-3/Dha/Epa/Fish Oil (FISH OIL EC 1,000 MG SOFTGEL) 1 Each Capsule.dr, 2000 MG PO BID for 30 Days, #60 CAP 4 Refills Prov:CHANTELLE PARRA MD 12/16/17 Lidocaine (Lidoderm) 1 Each Adh..patch, 1 EACH TP DAILY for 30 Days, #30 PATCH 6 Refills Prov:CHANTELLE PARRA MD 12/16/17 Oxycodone HCl/Acetaminophen (Oxycodone-Acetaminophen 5-325) 1 Each Tablet, 1 TAB PO Q6H PRN for PAIN LEVEL 4-6 for 7 Days, #20 TAB Prov:CHANTELLE PARRA MD 12/16/17 Neomycin/Polymyxin/Bacitr/Hc* (Cortisporin* Topical) 15 Gm Oint, 1 APPLIC TOP TID for 10 Days, #1 TUB 2 Refills Prov:CHANTELLE PARRA MD 12/16/17 Metformin* (Glucophage*) 500 Mg Tab, 500 MG PO BID WITH MEALS for 30 Days, #60 TAB 3 Refills Prov:CHANTELLE PARRA MD 12/16/17 Insulin Aspart* (Novolog Insulin Pen*) 100 Unit/Ml Soln, 10 UNIT SC WITH MEALS for 30 Days, #5 EA 5 Refills Prov:CHANTELLE PARRA MD 12/16/17 Gemfibrozil* (Gemfibrozil*) 600 Mg Tablet, 600 MG PO BID for 30 Days, #60 TAB 3 Refills Prov:CHANTELLE PARRA MD 12/14/17 Reported Medications Phentermine Hcl (Phentermine Hcl) 37.5 Mg Tablet, 37.5 MG PO DAILY, TAB 03/12/18 Icosapent Ethyl (VASCEPA) 1 Gm Capsule, 3 GM PO TIDM A, CAP 03/08/18 Ranitidine Hcl* (Ranitidine Hcl*) 75 Mg Tablet, 150 MG PO BID PRN for HEARTBURN, #60 TAB 03/05/18 Lisinopril* (Lisinopril*) 10 Mg Tablet, 10 MG PO DAILY, #30 TAB 03/05/18 Atorvastatin* (Atorvastatin*) 80 Mg Tablet, MG PO QHS, #30 TAB 03/05/18 Phentermine Hcl (Phentermine Hcl) 37.5 Mg Tablet, 37.5 MG PO DAILY, TAB 03/05/18 Insulin Lispro (Humalog) 100 Unit/1 Ml Cartridge, 5 UNIT SQ AC A, EA 03/05/18 Terbinafine* (Lamisil*) 250 Mg Tablet, 250 MG PO DAILY, TAB 12/10/17 Metoclopramide Hcl* (Metoclopramide Hcl*) 10 Mg Tablet, 10 MG PO Q8H PRN for NAUSEA AND OR VOMITING, TAB 12/10/17 Gabapentin* (Gabapentin*) 400 Mg Capsule, 400 MG PO TID, #90 CAP 12/10/17 Liraglutide (Victoza 3-Alvaro) 0.6 Mg/0.1 Ml Pen.injctr, 1.8 MG SQ DAILY, SYR 12/10/17 Sumatriptan* Nasal (Sumatriptan* Nasal) 5 Mg [place], 5 MG NASAL DAILY PRN for MIGRAINE HEADACHE, SPRAY If headache returns/persists, may repeat dose once after 2 hours; MAX 40 mg/24 hours 12/10/17 Clonazepam* (Klonopin*) 1 Mg Tablet, 1 MG PO QID PRN for ANXIETY, TAB 12/10/17 Hydromorphone Hcl* (Hydromorphone Hcl*) 2 Mg Tablet, 2 MG PO TID PRN for PAIN, TAB 12/10/17 Duloxetine Hcl* (Cymbalta*) 30 Mg Capsule.dr, 60 MG PO DAILY, CAP 12/10/17 Insulin Glargine,Hum.rec.anlog (Basaglar Kwikpen U-100) 100 Unit/1 Ml Insuln.pen, 20 UNIT SC QHS, EA 12/10/17 Zolpidem Tartrate* (Zolpidem Tartrate*) 10 Mg Tablet, 10 MG PO QHS PRN for INSOMNIA, #30 TAB 12/10/17 Albuterol Sulfate (Proair Respiclick) 90 Mcg Aer.pow.ba, 1 PUFF INHALATION Q4, #1 BOTTLE 12/10/17 Hydroxyzine Hcl* (Hydroxyzine Hcl*) 25 Mg Tablet, 25 MG PO Q8H PRN for ITCHING, #30 TAB 12/10/17 Medications Current Medications Dextrose/Sodium Chloride 1,000 ml @ 125 mls/hr Q8H IV Last administered on 06/27/18at 06:08; Admin Dose 125 MLS/HR; Start 06/26/18 at 20:26 IV Flush (NS 3 ml) 3 ml PER PROTOCOL IV ; Start 06/26/18 at 20:30 Ondansetron HCl (Zofran Inj) 4 mg Q6H PRN IV NAUSEA/VOMITING; Start 06/26/18 at 20:30 Nitroglycerin (Nitroglycerin (Sl Tab) 0.4 Mg) 1 tab Q5M PRN SL .CHEST PAIN; Start 06/26/18 at 20:30 Oxycodone/ Acetaminophen (Percocet (5/ 325)) 1 tab Q6H PRN PO .PAINS 4-6; Start 06/26/18 at 20:30 Diagnostic Test (Pha) (Accu-Chek) 1 ea Q1H XX Last administered on 06/27/18at 11:48; Admin Dose 1 EA; Start 06/26/18 at 20:30 Insulin Human Regular 100 unit/ Sodium Chloride 100 ml @ 0 mls/hr PER PROTOCOL IV Last administered on 06/26/18at 23:49; Admin Dose 1 MLS/HR; Start 06/26/18 at 20:30 Miscellaneous Information (* Miscellaneous Pharmacy Order) Treatment of Hypoglycemia: 1.BG 51... Per protocol XX ; Start 06/26/18 at 20:30 Dextrose (D50w Syringe) 25 ml Q15M PRN IV .DECREASED GLUCOSE; Start 06/26/18 at 20:30 Dextrose (D50w Syringe) 50 ml Q15M PRN IV .DECREASED GLUCOSE; Start 06/26/18 at 20:30 Hydromorphone HCl (Dilaudid) 0.5 mg Q4H PRN IV SEVERE PAIN LEVEL 7-10 Last administered on 06/27/18 04:59; Admin Dose 0.5 MG; Start 06/26/18 at 20:30 Atorvastatin Calcium (Lipitor) 80 mg HS PO Last administered on 06/26/18at 23:14; Admin Dose 80 MG; Start 06/26/18 at 21:00 Albuterol/ Ipratropium (Duoneb) 3 ml Q4H RESP THERAPY PRN HHN SHORTNESS OF BR EATH; Start 06/26/18 at 21:00 Lisinopril (Zestril) 10 mg DAILY PO Last administered on 06/27/18 08:51; Admin Dose 10 MG; Start 06/27/18 at 09:00 Lorazepam (Ativan) 0.5 mg Q6H PRN IV anxiety; Start 06/26/18 at 21:00 Duloxetine HCl (Cymbalta) 60 mg DAILY PO Last administered on 06/27/18at 08:49; Admin Dose 60 MG; Start 06/27/18 at 09:00 Labetalol HCl (Labetalol) 10 mg Q4 PRN IV sbp >160; Start 06/26/18 at 21:00 Gemfibrozil (Lopid) 600 mg BID PO Last administered on 06/27/18at 08:51; Admin Dose 600 MG; Start 06/26/18 at 21:00 Pantoprazole (Protonix Iv) 40 mg DAILY@06 IV Last administered on 06/27/18 06:08; Admin Dose 40 MG; Start 06/27/18 at 06:00 Atenolol (Tenormin) 25 mg BID PO Last administered on 06/27/18 08:52; Admin Dose 25 MG; Start 06/26/18 at 21:30 Fish Oil (Fish Oil) 2,000 mg BID PO Last administered on 06/27/18 08:51; Admin Dose 2,000 MG; Start 06/27/18 at 09:00 Gabapentin (Neurontin) 300 mg TID PO Last administered on 06/27/18 08:52; Admin Dose 300 MG; Start 06/27/18 at 09:00 Niacin (Niacin) 100 mg DAILY PO Last administered on 2/17/19at 09:28; Admin Dose 100 MG; Start 06/27/18 at 09:00 Zolpidem Tartrate (Ambien) 10 mg HS PRN PO INSOMNIA Last administered on 06/26/18at 23:53; Admin Dose 10 MG; Start 06/27/18 at 00:00 Miscellaneous Information Patients own medicat... BID@10,16 XX ; Start 06/27/18 at 10:00 Aspirin (Aspirin) 325 mg DAILY PO Last administered on 06/27/18at 09:28; Admin Dose 325 MG; Start 06/27/18 at 09:30 Allergies: Coded Allergies: hydrocodone (Verified Allergy, Unknown, 12/10/17) morphine (Verified Allergy, Unknown, 12/10/17) Past Surgical History Past Surgical Hx: no surgical history Social History Smoking Status: Current every day smoker Exam/Review of Systems Exam Vitals Vital Signs Date Temp Pulse Resp B/P (MAP) Pulse Ox O2 O2 Flow FiO2 Time Delivery Rate 06/27/18 92 08:00 06/27/18 97.8 13 134/64 94 Room Air 08:00 (87) Intake and Output 06/26/18 06/26/18 06/27/18 1515:00 23:00 07:00 IntakeIntake Total 1809.0 ml OutputOutput Total 680 ml BalanceBalance 1129.0 ml ENMT: nl external ears & nose, nl lips & teeth, nl nasal mucosa & septum Neck: supple, non-tender Respiratory: clear to auscultation, normal air movement Gastrointestinal: soft, nl liver, spleen, non-tender Results Result Diagram: 06/27/1812 06/27/18 0612 Results 24hrs Laboratory Tests Test 06/26/18 19:10 06/26/18 23:14 06/27/18 00:26 06/27/18 00:29 White Blood Count 7.3 # Red Blood Count 5.22 Hemoglobin 16.0 Hematocrit 46.1 Mean Corpuscular 88.3 Volume Mean Corpuscular 30.7 Hemoglobin Mean Corpuscular 34.7 Hemoglobin Concent Red Cell 12.7 Distribution Width Platelet Count 207 Mean Platelet Volume 10.3 Immature 0.500 H Granulocytes % Neutrophils % 66.0 Lymphocytes % 26.0 Monocytes % 6.4 Eosinophils % 0.8 Basophils % 0.3 Nucleated Red Blood 0.0 Cells % Immature 0.040 H Granulocytes # Neutrophils # 4.8 Lymphocytes # 1.9 Monocytes # 0.5 Eosinophils # 0.1 Basophils # 0.0 Nucleated Red Blood 0.0 Cells # Sodium Level 136 Potassium Level 4.1 Chloride Level 103 Carbon Dioxide Level 24 Anion Gap 9 Blood Urea Nitrogen 9 Creatinine 0.83 Est Glomerular > 60 Filtrat Rate mL/min Glucose Level 189 Calcium Level 9.6 Troponin I < 0.012 < 0.012 Triglycerides Level > 1575 H Cholesterol Level 239 H LDL Cholesterol, Calculated HDL Cholesterol 25 L Cholesterol/HDL 9.5 Ratio Lipase 121 Bedside Glucose 146 141 Creatine Kinase 152 Creatine Kinase 1.0 Index Creatinine Kinase MB 1.57 (Mass) Test 06/27/18 01:38 06/27/18 02:37 06/27/18 04:00 06/27/18 05:00 Bedside Glucose 147 156 165 129 Test 06/27/18 06:11 06/27/18 06:12 06/27/18 06:53 06/27/18 07:51 Bedside Glucose 123 142 129 White Blood Count 7.3 Red Blood Count 4.92 Hemoglobin 14.8 Hematocrit 44.5 Mean Corpuscular 90.4 Volume Mean Corpuscular 30.1 Hemoglobin Mean Corpuscular 33.3 Hemoglobin Concent Red Cell 12.7 Distribution Width Platelet Count 203 Mean Platelet Volume 10.6 H Immature 0.500 H Granulocytes % Neutrophils % 54.4 Lymphocytes % 35.1 Monocytes % 8.3 Eosinophils % 1.2 Basophils % 0.5 Nucleated Red Blood 0.0 Cells % Immature 0.040 H Granulocytes # Neutrophils # 4.0 Lymphocytes # 2.6 Monocytes # 0.6 Eosinophils # 0.1 Basophils # 0.0 Nucleated Red Blood 0.0 Cells # Sodium Level 139 Potassium Level 3.8 Chloride Level 99 Carbon Dioxide Level 25 Anion Gap 15 H Blood Urea Nitrogen 8 Creatinine 0.94 Est Glomerular > 60 Filtrat Rate mL/min Glucose Level 113 # Hemoglobin A1c 7.0 H Calcium Level 9.2 Magnesium Level 1.7 Total Bilirubin 0.3 Direct Bilirubin 0.00 Indirect Bilirubin 0.3 Aspartate Amino 22 Transf (AST/SGOT) Alanine 18 Aminotransferase (AL T/SGPT) Alkaline Phosphatase 65 Creatine Kinase 171 Creatine Kinase 1.0 Index Creatinine Kinase MB 1.65 (Mass) Troponin I < 0.012 Total Protein 7.6 Albumin 4.3 Globulin 3.30 H Albumin/Globulin 1.30 Ratio Triglycerides Level > 1575 H Cholesterol Level 253 H LDL Cholesterol, Calculated HDL Cholesterol 24 L Cholesterol/HDL 10.5 Ratio Thyroid Stimulating 3.810 Hormone (TSH) Test 06/27/18 10:52 06/27/18 11:47 Bedside Glucose 186 162 Medications Medication Current Medications Dextrose/Sodium Chloride 1,000 ml @ 125 mls/hr Q8H IV Last administered on 06/27/18at 06:08; Admin Dose 125 MLS/HR; Start 06/26/18 at 20:26 IV Flush (NS 3 ml) 3 ml PER PROTOCOL IV ; Start 06/26/18 at 20:30 Ondansetron HCl (Zofran Inj) 4 mg Q6H PRN IV NAUSEA/VOMITING; Start 06/26/18 at 20:30 Nitroglycerin (Nitroglycerin (Sl Tab) 0.4 Mg) 1 tab Q5M PRN SL .CHEST PAIN; Start 06/26/18 at 20:30 Oxycodone/ Acetaminophen (Percocet (5/ 325)) 1 tab Q6H PRN PO .PAINS 4-6; Start 06/26/18 at 20:30 Diagnostic Test (Pha) (Accu-Chek) 1 ea Q1H XX Last administered on 06/27/18at 11:48; Admin Dose 1 EA; Start 06/26/18 at 20:30 Insulin Human Regular 100 unit/ Sodium Chloride 100 ml @ 0 mls/hr PER PROTOCOL IV Last administered on 06/26/18at 23:49; Admin Dose 1 MLS/HR; Start 06/26/18 at 20:30 Miscellaneous Information (* Miscellaneous Pharmacy Order) Treatment of Hypoglycemia: 1.BG 51... Per protocol XX ; Start 06/26/18 at 20:30 Dextrose (D50w Syringe) 25 ml Q15M PRN IV .DECREASED GLUCOSE; Start 06/26/18 at 20:30 Dextrose (D50w Syringe) 50 ml Q15M PRN IV .DECREASED GLUCOSE; Start 06/26/18 at 20:30 Hydromorphone HCl (Dilaudid) 0.5 mg Q4H PRN IV SEVERE PAIN LEVEL 7-10 Last administered on 06/27/18at 04:59; Admin Dose 0.5 MG; Start 06/26/18 at 20:30 Atorvastatin Calcium (Lipitor) 80 mg HS PO Last administered on 06/26/18at 23:14; Admin Dose 80 MG; Start 06/26/18 at 21:00 Albuterol/ Ipratropium (Duoneb) 3 ml Q4H RESP THERAPY PRN HHN SHORTNESS OF BREATH; Start 06/26/18 at 21:00 Lisinopril (Zestril) 10 mg DAILY PO Last administered on 06/27/18at 08:51; Admin Dose 10 MG; Start 06/27/18 at 09:00 Lorazepam (Ativan) 0.5 mg Q6H PRN IV anxiety; Start 06/26/18 at 21:00 Duloxetine HCl (Cymbalta) 60 mg DAILY PO Last administered on 06/27/18at 08:49; Admin Dose 60 MG; Start 06/27/18 at 09:00 Labetalol HCl (Labetalol) 10 mg Q4 PRN IV sbp >160; Start 06/26/18 at 21:00 Gemfibrozil (Lopid) 600 mg BID PO Last administered on 06/27/18at 08:51; Admin Dose 600 MG; Start 06/26/18 at 21:00 Pantoprazole (Protonix Iv) 40 mg DAILY@06 IV Last administered on 06/27/18at 06:08; Admin Dose 40 MG; Start 06/27/18 at 06:00 Atenolol (Tenormin) 25 mg BID PO Last administered on 06/27/18 08:52; Admin Dose 25 MG; Start 06/26/18 at 21:30 Fish Oil (Fish Oil) 2,000 mg BID PO Last administered on 06/27/18 08:51; Admin Dose 2,000 MG; Start 06/27/18 at 09:00 Gabapentin (Neurontin) 300 mg TID PO Last administered on 06/27/18 08:52; Admin Dose 300 MG; Start 06/27/18 at 09:00 Niacin (Niacin) 100 mg DAILY PO Last administered on 06/27/18 09:28; Admin Dose 100 MG; Start 06/27/18 at 09:00 Zolpidem Tartrate (Ambien) 10 mg HS PRN PO INSOMNIA Last administered on 06/26/18at 23:53; Admin Dose 10 MG; Start 06/27/18 at 00:00 Miscellaneous Information Patients own medicat... BID@ XX ; Start 06/27/18 at 10:00 Aspirin (Aspirin) 325 mg DAILY PO Last administered on 06/27/18at 09:28; Admin Dose 325 MG; Start 06/27/18 at 09:30 EZIO HERNANDEZ MD Jun 27, 2018 12:50
--- NOTE | 2018-06-27 12:57 | QN ---
Documentation Comment Pt refused HD cath placement EZIO HERNANDEZ MD Jun 27, 2018 12:57
[2018-06-27] MEDS: ATORVASTATIN 80 MG TAB PO SCH (20:25)
[2018-06-27] MEDS: ZOLPIDEM 5 MG TAB PO PRN (20:32)
[2018-06-28] VITALS (17 sets, daily range): BP systolic 96–132; BP diastolic 51–88; PULSE 60–86; RESP 13–28
[2018-06-28] MEDS: NIACIN 500 MG TAB PO SCH (00:17)
[2018-06-28] MEDS: PANTOPRAZOLE 40 MG INJ IV SCH (06:10)
[2018-06-28] MEDS: DEXTROSE 5%-0.45% NACL 1,000 ML IV SCH (07:25)
[2018-06-28] MEDS: FISH OIL 1,000 MG CAP PO SCH ×2 (08:13→21:27)
[2018-06-28] MEDS: LISINOPRIL 10 MG TAB PO SCH (08:13)
[2018-06-28] MEDS: GEMFIBROZIL 600 MG TAB PO SCH (08:13)
[2018-06-28] MEDS: ASPIRIN 325 MG TAB PO SCH ×3 (08:13→21:27)
[2018-06-28] MEDS: DULOXETINE 30 MG CAP DR PO SCH (08:13)
[2018-06-28] MEDS: NIACIN 50 MG TAB PO SCH (08:13)
[2018-06-28] MEDS: GABAPENTIN 300 MG CAP PO SCH ×3 (08:14→21:27)
[2018-06-28] MEDS: ATENOLOL 25 MG TAB PO SCH ×2 (08:14→21:28)
[2018-06-28] MEDS ORDERED: FISH OIL 1,000 MG CAP PO SCH (09:00)
--- NOTE | 2018-06-28 09:13 | CONS ---
Assessment/Plan Assessment/Plan Problems: (1) Hypertriglyceridemia Status: Acute Comment: Is placed on insulin drip. However his triglyceride levels about thousand. I think that we can transition this over to oral therapy especially if we approach this somewhat aggressively. I am in agreement with turning off the insulin drip and going to multiple daily injection regimen. Please note that GLP-1 drugs, and DPP 4 inhibitor drugs are agents that I am personally not in favor of as they are associated with pancreatitis. There is no dated the state in a patient with recurrent pancreatitis from other course sources that these will aggravate it. This is in the area of extrapolation (2) Type 2 diabetes mellitus without complications Status: Chronic Comment: Continue with insulin therapy. It appears he has been quite cooperative with this. Qualifiers: Qualified Codes: E11.9 - Type 2 diabetes mellitus without complications; Z79.4 - longterm (current) use of insulin (3) Neuropathy in diabetes Status: Chronic Comment: Noted. Qualifiers: Qualified Codes: E11.41 - Type 2 diabetes mellitus with diabetic mononeuropathy (4) Chronic recurrent pancreatitis Status: Chronic Comment: As per team for evaluation Consultation Date/Type/Reason Admit Date/Time June 27, 2018 Date of Consultation: Jun 28, 2018 Type of Consult Endocrinology Reason for Consultation Diabetes mellitus type 2; familial hypertriglyceridemia; chronic recurrent pancreatitis Requesting Provider: DOUGLAS BAE MD Date/Time of Note DATE: 06/28/18 TIME: 09:07 Hx of Present Illness 53-year-old right-handed male who is being admitted to our facility for the fourth time. He has a somewhat interesting medical history of severe familial hypertriglyceridemia inducing pancreatitis. He is come in with abdominal pain again or at least what sounded like that. He may have some exertional chest symptoms which will be evaluated carefully by the team. He reports that he is done his best in terms of taking his lipid controlling medications although the niacin is difficult for him to be able to tolerate. He is missing doses of that. He also does admit to missing occasional dosages of statin medications but reports he is consistent with fabric acid derivative. I am not 100% clear about how cooperative he is with taking his omega-3 fish oil as the dosing he reports is less than what is on his written instructions. Constitutional: no complaints Eyes: no complaints ENT: no complaints Respiratory: no complaints Cardiovascular: chest pain (Reports that exertional chest discomfort. Please note he seen by cardiology at [facility]-Dr. Pate) Gastrointestinal: pain Genitourinary: no complaints Musculoskeletal: no complaints Skin: no complaints Past Medical History Medical History: angina, diabetes (Beatties mellitus type II), high cholesterol (Familial hypertriglyceridemia), hypertension (Essential hypertension), pancreatitis (Chronic recurrent pancreatitis due to hypertriglyceridemia, reports he does not drink), other (Asthma persistent moderate, migraine syndrome, anxiety disorder, depression) Home Meds Active Scripts Pantoprazole (Protonix) 40 Mg Tabec, 40 MG PO DAILY for 30 Days, #30 TAB 4 Refills Prov:CHANTELLE PARRA MD 12/16/17 Atenolol* (Atenolol*) 25 Mg Tablet, 25 MG PO BID for 30 Days, #60 TAB 5 Refills Prov:CHANTELLE PARRA MD 12/16/17 [place]-3/Dha/Epa/Fish Oil (FISH OIL EC 1,000 MG SOFTGEL) 1 Each Capsule.dr, 2000 MG PO BID for 30 Days, #60 CAP 4 Refills Prov:CHANTELLE PARRA MD 12/16/17 Lidocaine (Lidoderm) 1 Each Adh..patch, 1 EACH TP DAILY for 30 Days, #30 PATCH 6 Refills Prov:CHANTELLE PARRA MD 12/16/17 Oxycodone HCl/Acetaminophen (Oxycodone-Acetaminophen 5-325) 1 Each Tablet, 1 TAB PO Q6H PRN for PAIN LEVEL 4-6 for 7 Days, #20 TAB Prov:CHANTELLE PARRA MD 12/16/17 Neomycin/Polymyxin/Bacitr/Hc* (Cortisporin* Topical) 15 Gm Oint, 1 APPLIC TOP TID for 10 Days, #1 TUB 2 Refills Prov:CHANTELLE PARRA MD 12/16/17 Metformin* (Glucophage*) 500 Mg Tab, 500 MG PO BID WITH MEALS for 30 Days, #60 TAB 3 Refills Prov:CHANTELLE PARRA MD 12/16/17 Insulin Aspart* (Novolog Insulin Pen*) 100 Unit/Ml Soln, 10 UNIT SC WITH MEALS for 30 Days, #5 EA 5 Refills Prov:CHANTELLE PARRA MD 12/16/17 Gemfibrozil* (Gemfibrozil*) 600 Mg Tablet, 600 MG PO BID for 30 Days, #60 TAB 3 Refills Prov:CHANTELLE PARRA MD 12/14/17 Reported Medications Phentermine Hcl (Phentermine Hcl) 37.5 Mg Tablet, 37.5 MG PO DAILY, TAB 03/12/18 Icosapent Ethyl (VASCEPA) 1 Gm Capsule, 3 GM PO TIDM A, CAP 03/08/18 Ranitidine Hcl* (Ranitidine Hcl*) 75 Mg Tablet, 150 MG PO BID PRN for HEARTBURN, #60 TAB 03/05/18 Lisinopril* (Lisinopril*) 10 Mg Tablet, 10 MG PO DAILY, #30 TAB 03/05/18 Atorvastatin* (Atorvastatin*) 80 Mg Tablet, MG PO QHS, #30 TAB 03/05/18 Phentermine Hcl (Phentermine Hcl) 37.5 Mg Tablet, 37.5 MG PO DAILY, TAB 03/05/18 Insulin Lispro (Humalog) 100 Unit/1 Ml Cartridge, 5 UNIT SQ AC A, EA 03/05/18 Terbinafine* (Lamisil*) 250 Mg Tablet, 250 MG PO DAILY, TAB 12/10/17 Metoclopramide Hcl* (Metoclopramide Hcl*) 10 Mg Tablet, 10 MG PO Q8H PRN for NAUSEA AND OR VOMITING, TAB 12/10/17 Gabapentin* (Gabapentin*) 400 Mg Capsule, 400 MG PO TID, #90 CAP 12/10/17 Liraglutide (Victoza 3-Alvaro) 0.6 Mg/0.1 Ml Pen.injctr, 1.8 MG SQ DAILY, SYR 12/10/17 Sumatriptan* Nasal (Sumatriptan* Nasal) 5 Mg Angora, 5 MG NASAL DAILY PRN for MIGRAINE HEADACHE, SPRAY If headache returns/persists, may repeat dose once after 2 hours; MAX 40 mg/24 hours 12/10/17 Clonazepam* (Klonopin*) 1 Mg Tablet, 1 MG PO QID PRN for ANXIETY, TAB 12/10/17 Hydromorphone Hcl* (Hydromorphone Hcl*) 2 Mg Tablet, 2 MG PO TID PRN for PAIN, TAB 12/10/17 Duloxetine Hcl* (Cymbalta*) 30 Mg Capsule.dr, 60 MG PO DAILY, CAP 12/10/17 Insulin Glargine,Hum.rec.anlog (Basaglar Kwikpen U-100) 100 Unit/1 Ml Insuln.pen, 20 UNIT SC QHS, EA 12/10/17 Zolpidem Tartrate* (Zolpidem Tartrate*) 10 Mg Tablet, 10 MG PO QHS PRN for INSOMNIA, #30 TAB 12/10/17 Albuterol Sulfate (Proair Respiclick) 90 Mcg Aer.pow.ba, 1 PUFF INHALATION Q4, #1 BOTTLE 12/10/17 Hydroxyzine Hcl* (Hydroxyzine Hcl*) 25 Mg Tablet, 25 MG PO Q8H PRN for ITCHING, #30 TAB 12/10/17 Medications Current Medications Dextrose/Sodium Chloride 1,000 ml @ 125 mls/hr Q8H IV Last administered on 06/28/18at 07:25; Admin Dose 125 MLS/HR; Start 06/26/18 at 20:26 IV Flush (NS 3 ml) 3 ml PER PROTOCOL IV ; Start 06/26/18 at 20:30 Ondansetron HCl (Zofran Inj) 4 mg Q6H PRN IV NAUSEA/VOMITING; Start 06/26/18 at 20:30 Nitroglycerin (Nitroglycerin (Sl Tab) 0.4 Mg) 1 tab Q5M PRN SL .CHEST PAIN; Start 06/26/18 at 20:30 Oxycodone/ Acetaminophen (Percocet (5/ 325)) 1 tab Q6H PRN PO .PAINS 4-6; Start 06/26/18 at 20:30 Diagnostic Test (Pha) (Accu-Chek) 1 ea Q1H XX Last administered on 06/27/18at 17:30; Admin Dose 1 EA; Start 06/26/18 at 20:30 Insulin Human Regular 100 unit/ Sodium Chloride 100 ml @ 0 mls/hr PER PROTOCOL IV Last administered on 06/26/18at 23:49; Admin Dose 1 MLS/HR; Start 06/26/18 at 20:30 Miscellaneous Information (* Miscellaneous Pharmacy Order) Treatment of Hypoglycemia: 1.BG 51... Per protocol XX ; Start 06/26/18 at 20:30 Dextrose (D50w Syringe) 25 ml Q15M PRN IV .DECREASED GLUCOSE; Start 06/26/18 at 20:30 Dextrose (D50w Syringe) 50 ml Q15M PRN IV .DECREASED GLUCOSE; Start 06/26/18 at 20:30 Atorvastatin Calcium (Lipitor) 80 mg HS PO Last administered on 06/27/18at 20:25; Admin Dose 80 MG; Start 06/26/18 at 21:00 Albuterol/ Ipratropium (Duoneb) 3 ml Q4H RESP THERAPY PRN HHN SHORTNESS OF BREATH; Start 06/26/18 at 21:00 Lisinopril (Zestril) 10 mg DAILY PO Last administered on 06/28/18at 08:13; Admin Dose 10 MG; Start 06/27/18 at 09:00 Lorazepam (Ativan) 0.5 mg Q6H PRN IV anxiety; Start 06/26/18 at 21:00 Duloxetine HCl (Cymbalta) 60 mg DAILY PO Last administered on 06/28/18at 08:13; Admin Dose 60 MG; Start 06/27/18 at 09:00 Labetalol HCl (Labetalol) 10 mg Q4 PRN IV sbp >160; Start 06/26/18 at 21:00 Gemfibrozil (Lopid) 600 mg BID PO Last administered on 06/28/18 08:13; Admin Dose 600 MG; Start 06/26/18 at 21:00 Pantoprazole (Protonix Iv) 40 mg DAILY@06 IV Last administered on 06/28/18at 06:10; Admin Dose 40 MG; Start 06/27/18 at 06:00 Atenolol (Tenormin) 25 mg BID PO Last administered on 06/28/18 08:14; Admin Dose 25 MG; Start 06/26/18 at 21:30 Fish Oil (Fish Oil) 2,000 mg BID PO Last administered on 06/28/18 08:13; Admin Dose 2,000 MG; Start 06/27/18 at 09:00 Gabapentin (Neurontin) 300 mg TID PO Last administered on 06/28/18 08:14; Admin Dose 300 MG; Start 06/27/18 at 09:00 Zolpidem Tartrate (Ambien) 10 mg HS PRN PO INSOMNIA Last administered on 06/27/18at 20:32; Admin Dose 10 MG; Start 06/27/18 at 00:00 Miscellaneous Information Patients own medicat... BID@,16 XX ; Start 06/27/18 at 10:00 Aspirin (Aspirin) 325 mg QHS PO ; Start 06/28/18 at 20:30; Status UNV Niacin (Niacin) 500 mg QHS PO ; Start 06/28/18 at 21:00; Status UNV Psyllium Hydrophilic Mucilloid (Metamucil (Sugar Free)) 1 pkt QHS PO ; Start 06/28/18 at 21:00; Status UNV Fish Oil (Fish Oil) 3,000 mg BID PO ; Start 06/28/18 at 09:00; Status UNV Miscellaneous Information (* Miscellaneous Pharmacy Order) Discontinue current oral sulfonylur... ONCE ONCE XX ; Start 06/28/18 at 09:30; Stop 06/28/18 at 09:31; Status UNV Diagnostic Test (Pha) (Accu-Chek) 1 ea 02 XX ; Start 06/29/18 at 02:00; Status UNV Diagnostic Test (Pha) (Accu-Chek) 1 ea 2 HOURS AFTER MEALS XX ; Start 06/28/18 at 09:35; Status UNV Insulin Glargine (Lantus) 23 units DAILY@0800 SC ; Start 06/29/18 at 08:00; Status UNV Insulin Aspart (Novolog Insulin Pen) 8 unit WITH MEALS SC ; Start 06/28/18 at 11:30; Status UNV Miscellaneous Information (* Miscellaneous Pharmacy Order) HYPOGLYCEMIA PROTOCOL w... ONCE ONCE XX ; Start 06/28/18 at 09:30; Stop 06/28/18 at 09:31; Status UNV Insulin Aspart (Novolog Insulin Pen) NOVOLOG *MODERATE* ALGORITHM WITH MEALS BEDTIME SC ; Start 06/28/18 at 11:30; Status UNV Miscellaneous Information (* Miscellaneous Pharmacy Order) Discontinue all previ... ONCE ONCE XX ; Start 06/28/18 at 09:30; Stop 06/28/18 at 09:31; Sta tus UNV Allergies: Coded Allergies: hydrocodone (Verified Allergy, Unknown, 12/10/17) morphine (Verified Allergy, Unknown, 12/10/17) Past Surgical History Past Surgical Hx: no surgical history Family History Significant Family History: diabetes Social History Alcohol Use: none (Denies any alcohol consumption) Smoking Status: Current every day smoker (Reports cigar smoking) Drug Use: marijuana (Reports he uses CBD oil but occasionally does use more regular marijuana) Exam/Review of Systems Exam Vitals Vital Signs Date Temp Pulse Resp B/P (MAP) Pulse Ox O2 O2 Flow FiO2 Time Delivery Rate 06/28/18 66 15 96/55 (69) 90 Room Air 06:00 06/28/18 98.2 05:00 06/28/18 2.0 03:00 Intake and Output 06/27/18 06/27/18 06/28/18 1515:00 23:00 07:00 IntakeIntake Total 1537 ml 1274 ml 1026 ml OutputOutput Total 1300 ml 1450 ml 800 ml BalanceBalance 237 ml -176 ml 226 ml Constitutional: alert, oriented Head: normocephalic, atraumatic Neck: supple, non-tender Results Result Diagram: 06/28/18 0514 06/28/18 0513 Results 24hrs Laboratory Tests Test 06/27/18 10:52 06/27/18 11:47 06/27/18 14:07 06/27/18 15:13 Bedside Glucose 186 162 207 162 Test 06/27/18 16:10 06/27/18 17:46 06/27/18 20:00 06/27/18 21:20 Bedside Glucose 197 161 108 156 Test 06/27/18 22:04 06/28/18 00:00 06/28/18 00:22 06/28/18 02:27 Bedside Glucose 146 141 125 Triglycerides Level 1347 H Test 06/28/18 04:14 06/28/18 05:13 06/28/18 05:14 06/28/18 05:54 Bedside Glucose 132 165 Sodium Level 138 Potassium Level 4.3 Chloride Level 99 Carbon Dioxide Level 27 Anion Gap 12 Blood Urea Nitrogen 10 Creatinine 0.96 Est Glomerular > 60 Filtrat Rate mL/min Glucose Level 135 Calcium Level 9.0 Phosphorus Level 4.3 Magnesium Level 1.8 Triglycerides Level 1150 H Cholesterol Level 234 H LDL Cholesterol, Calculated HDL Cholesterol 23 L Cholesterol/HDL 10.1 Ratio White Blood Count 6.1 Red Blood Count 4.78 Hemoglobin 14.3 Hematocrit 43.5 Mean Corpuscular 91.0 Volume Mean Corpuscular 29.9 Hemoglobin Mean Corpuscular 32.9 Hemoglobin Concent Red Cell 12.8 Distribution Width Platelet Count 177 Mean Platelet Volume 10.1 Immature 0.700 H Granulocytes % Neutrophils % 53.1 Lymphocytes % 35.3 Monocytes % 8.6 Eosinophils % 1.8 Basophils % 0.5 Nucleated Red Blood 0.0 Cells % Immature 0.040 H Granulocytes # Neutrophils # 3.3 Lymphocytes # 2.2 Monocytes # 0.5 Eosinophils # 0.1 Basophils # 0.0 Nucleated Red Blood 0.0 Cells # Test 06/28/18 08:02 Bedside Glucose 127 Medications Medication Current Medications Dextrose/Sodium Chloride 1,000 ml @ 125 mls/hr Q8H IV Last administered on 06/28/18at 07:25; Admin Dose 125 MLS/HR; Start 06/26/18 at 20:26 IV Flush (NS 3 ml) 3 ml PER PROTOCOL IV ; Start 06/26/18 at 20:30 Ondansetron HCl (Zofran Inj) 4 mg Q6H PRN IV NAUSEA/VOMITING; Start 06/26/18 at 20:30 Nitroglycerin (Nitroglycerin (Sl Tab) 0.4 Mg) 1 tab Q5M PRN SL .CHEST PAIN; Start 06/26/18 at 20:30 Oxycodone/ Acetaminophen (Percocet (5/ 325)) 1 tab Q6H PRN PO .PAINS 4-6; Start 06/26/18 at 20:30 Diagnostic Test (Pha) (Accu-Chek) 1 ea Q1H XX Last administered on 06/27/18at 17:30; Admin Dose 1 EA; Start 06/26/18 at 20:30 Insulin Human Regular 100 unit/ Sodium Chloride 100 ml @ 0 mls/hr PER PROTOCOL IV Last administered on 06/26/18at 23:49; Admin Dose 1 MLS/HR; Start 06/26/18 at 20:30 Miscellaneous Information (* Miscellaneous Pharmacy Order) Treatment of Hypoglycemia: 1.BG 51... Per protocol XX ; Start 06/26/18 at 20:30 Dextrose (D50w Syringe) 25 ml Q15M PRN IV .DECREASED GLUCOSE; Start 06/26/18 at 20:30 Dextrose (D50w Syringe) 50 ml Q15M PRN IV .DECREASED GLUCOSE; Start 06/26/18 at 20:30 Atorvastatin Calcium (Lipitor) 80 mg HS PO Last administered on 06/27/18at 20:25; Admin Dose 80 MG; Start 06/26/18 at 21:00 Albuterol/ Ipratropium (Duoneb) 3 ml Q4H RESP THERAPY PRN HHN SHORTNESS OF BREATH; Start 06/26/18 at 21:00 Lisinopril (Zestril) 10 mg DAILY PO Last administered on 06/28/18 08:13; Admin Dose 10 MG; Start 06/27/18 at 09:00 Lorazepam (Ativan) 0.5 mg Q6H PRN IV anxiety; Start 06/26/18 at 21:00 Duloxetine HCl (Cymbalta) 60 mg DAILY PO Last administered on 06/28/18 08:13; Admin Dose 60 MG; Start 06/27/18 at 09:00 Labetalol HCl (Labetalol) 10 mg Q4 PRN IV sbp >160; Start 06/26/18 at 21:00 Gemfibrozil (Lopid) 600 mg BID PO Last administered on 06/28/18 08:13; Admin Dose 600 MG; Start 06/26/18 at 21:00 Pantoprazole (Protonix Iv) 40 mg DAILY@06 IV Last administered on 06/28/18 06:10; Admin Dose 40 MG; Start 06/27/18 at 06:00 Atenolol (Tenormin) 25 mg BID PO Last administered on 06/28/18 08:14; Admin Dose 25 MG; Start 06/26/18 at 21:30 Fish Oil (Fish Oil) 2,000 mg BID PO Last administered on 06/28/18 08:13; Admin Dose 2,000 MG; Start 06/27/18 at 09:00 Gabapentin (Neurontin) 300 mg TID PO Last administered on 06/28/18 08:14; Admin Dose 300 MG; Start 06/27/18 at 09:00 Zolpidem Tartrate (Ambien) 10 mg HS PRN PO INSOMNIA Last administered on 06/27/18at 20:32; Admin Dose 10 MG; Start 06/27/18 at 00:00 Miscellaneous Information Patients own medicat... BID@10,16 XX ; Start 06/27/18 at 10:00 Aspirin (Aspirin) 325 mg QHS PO ; Start 06/28/18 at 20:30; Status UNV Niacin (Niacin) 500 mg QHS PO ; Start 06/28/18 at 21:00; Status UNV Psyllium Hydrophilic Mucilloid (Metamucil (Sugar Free)) 1 pkt QHS PO ; Start 06/28/18 at 21:00; Status UNV Fish Oil (Fish Oil) 3,000 mg BID PO ; Start 06/28/18 at 09:00; Status UNV Miscellaneous Information (* Miscellaneous Pharmacy Order) Discontinue current oral sulfonylur... ONCE ONCE XX ; Start 06/28/18 at 09:30; Stop 06/28/18 at 09:31; Status UNV Diagnostic Test (Pha) (Accu-Chek) 1 ea 02 XX ; Start 06/29/18 at 02:00; Status UNV Diagnostic Test (Pha) (Accu-Chek) 1 ea 2 HOURS AFTER MEALS XX ; Start 06/28/18 at 09:35; Status UNV Insulin Glargine (Lantus) 23 units DAILY@0800 SC ; Start 06/29/18 at 08:00; Status UNV Insulin Aspart (Novolog Insulin Pen) 8 unit WITH MEALS SC ; Start 06/28/18 at 11:30; Status UNV Miscellaneous Information (* Miscellaneous Pharmacy Order) HYPOGLYCEMIA PROTOCOL w... ONCE ONCE XX ; Start 06/28/18 at 09:30; Stop 06/28/18 at 09:31; Status UNV Insulin Aspart (Novolog Insulin Pen) NOVOLOG *MODERATE* ALGORITHM WITH MEALS BEDTIME SC ; Start 06/28/18 at 11:30; Status UNV Miscellaneous Information (* Miscellaneous Pharmacy Order) Discontinue all previ... ONCE ONCE XX ; Start 06/28/18 at 09:30; Stop 06/28/18 at 09:31; Status UNV RICHELLE VALENCIA MD Jun 28, 2018 09:13
--- NOTE | 2018-06-28 09:25 | PN ---
Date/Time of Note Date/Time of Note DATE: 06/28/18 TIME: 09:15 Assessment/Plan VTE Prophylaxis Risk score (from Nsg)>0 risk: 1 SCD applied (from Nsg): Yes Pharmacological prophylaxis: NA/contraindicated Pharm contraindication: low risk/ambulating Lines/Catheters IV Catheter Type (from Nrsg): Peripheral IV Urinary Cath still in place: No Assessment/Plan Assessment/Plan 53 yo man with history of familial hypertriglyceridemia presents with abdominal pain and exertional chest pain. # Chest pain - He reports negative stress test 1.5 years ago. Never had cardiac cath. Since stress test, has had worsening exertional stabbing substernal chest pain over past several months. - troponins neg x 2 - Cont daily aspirin - Will plan for lory-scan prior to discharge. - Cardiology consul # Epigastric pain -Lipase negative -Continue Protonix -Will advance diet # Hypertriglyceridemia - familial, TG on admission > 1575 - Transition to subQ insulin. - Resume home anti-lipid drugs - Per hematology, no plasmapheresis. - continue Atorvastatin, fish oil, gemfibrozil # Left upper extremity numbness -Likely secondary to patient's worsening peripheral neuropathy - head Ct neg - Neuro exam unremarkable. # Peripheral neuropathy - Continue gabapentin # Anxiety -IV Ativan as needed # Substance abuse -Urine drug screen negative # Diabetes mellitus - A1c = 7.0 -Continue subQ insulin # Hypertension -Control as needed, resume home meds Result Diagram: 06/28/18 0514 06/28/18 0513 Subjective 24 Hr Interval Summary Free Text/Dictation No acute overnight events. He does reports worsening exertional chest pain over the past few months, stabbing, substernal. Sometimes associated with L arm numbness. He does also report nonspecific abdominal pain, "like eating hot chilies". However this morning he reports he is very hungry and it is not that painful. Last dilaudid was yesterday evening. Exam/Review of Systems Exam Vitals Vital Signs Date Temp Pulse Resp B/P (MAP) Pulse Ox O2 O2 Flow FiO2 Time Delivery Rate 06/28/18 66 15 96/55 (69) 90 Room Air 06:00 06/28/18 98.2 05:00 06/28/18 2.0 03:00 Intake and Output 06/27/18 06/27/18 06/28/18 1515:00 23:00 07:00 IntakeIntake Total 1537 ml 1274 ml 1026 ml OutputOutput Total 1300 ml 1450 ml 800 ml BalanceBalance 237 ml -176 ml 226 ml Exam General: Patient lying in bed, awake and alert. Mentation: Patient is alert and oriented 4 Head: Normocephalic atraumatic Eyes: EOMI, pupils reactive to light Neck: Supple, nontender, midline Respiratory: Clear to auscultation bilaterally Cardiovascular: Regular rate and rhythm, no murmurs Gastrointestinal: Diffusely tender to deep palpation, bowel sounds heard. Skin: No xanthomas or other skin lesions. Medications Medication Current Medications Dextrose/Sodium Chloride 1,000 ml @ 125 mls/hr Q8H IV Last administered on 06/28/18at 07:25; Admin Dose 125 MLS/HR; Start 06/26/18 at 20:26 IV Flush (NS 3 ml) 3 ml PER PROTOCOL IV ; Start 06/26/18 at 20:30 Ondansetron HCl (Zofran Inj) 4 mg Q6H PRN IV NAUSEA/VOMITING; Start 06/26/18 at 20:30 Nitroglycerin (Nitroglycerin (Sl Tab) 0.4 Mg) 1 tab Q5M PRN SL .CHEST PAIN; Start 06/26/18 at 20:30 Oxycodone/ Acetaminophen (Percocet (5/ 325)) 1 tab Q6H PRN PO .PAINS 4-6; Start 06/26/18 at 20:30 Diagnostic Test (Pha) (Accu-Chek) 1 ea Q1H XX Last administered on 06/27/18at 17:30; Admin Dose 1 EA; Start 06/26/18 at 20:30 Insulin Human Regular 100 unit/ Sodium Chloride 100 ml @ 0 mls/hr PER PROTOCOL IV Last administered on 06/26/18at 23:49; Admin Dose 1 MLS/HR; Start 06/26/18 at 20:30 Miscellaneous Information (* Miscellaneous Pharmacy Order) Treatment of Hypoglycemia: 1.BG 51... Per protocol XX ; Start 06/26/18 at 20:30 Dextrose (D50w Syringe) 25 ml Q15M PRN IV .DECREASED GLUCOSE; Start 06/26/18 at 20:30 Dextrose (D50w Syringe) 50 ml Q15M PRN IV .DECREASED GLUCOSE; Start 06/26/18 at 20:30 Atorvastatin Calcium (Lipitor) 80 mg HS PO Last administered on 06/27/18 20:25; Admin Dose 80 MG; Start 06/26/18 at 21:00 Albuterol/ Ipratropium (Duoneb) 3 ml Q4H RESP THERAPY PRN HHN SHORTNESS OF BREATH; Start 06/26/18 at 21:00 Lisinopril (Zestril) 10 mg DAILY PO Last administered on 06/28/18 08:13; Admin Dose 10 MG; Start 06/27/18 at 09:00 Lorazepam (Ativan) 0.5 mg Q6H PRN IV anxiety; Start 06/26/18 at 21:00 Duloxetine HCl (Cymbalta) 60 mg DAILY PO Last administered on 06/28/18 08:13; Admin Dose 60 MG; Start 06/27/18 at 09:00 Labetalol HCl (Labetalol) 10 mg Q4 PRN IV sbp >160; Start 06/26/18 at 21:00 Gemfibrozil (Lopid) 600 mg BID PO Last administered on 06/28/18 08:13; Admin Dose 600 MG; Start 06/26/18 at 21:00 Pantoprazole (Protonix Iv) 40 mg DAILY@06 IV Last administered on 06/28/18 06:10; Admin Dose 40 MG; Start 06/27/18 at 06:00 Atenolol (Tenormin) 25 mg BID PO Last administered on 06/28/18 08:14; Admin Dose 25 MG; Start 06/26/18 at 21:30 Fish Oil (Fish Oil) 2,000 mg BID PO Last administered on 06/28/18 08:13; Admin Dose 2,000 MG; Start 06/27/18 at 09:00 Gabapentin (Neurontin) 300 mg TID PO Last administered on 06/28/18 08:14; Admin Dose 300 MG; Start 06/27/18 at 09:00 Zolpidem Tartrate (Ambien) 10 mg HS PRN PO INSOMNIA Last administered on 06/27/18 20:32; Admin Dose 10 MG; Start 06/27/18 at 00:00 Miscellaneous Information Patients own medicat... BID@ XX ; Start 06/27/18 at 10:00 Aspirin (Aspirin) 325 mg QHS PO ; Start 06/28/18 at 20:30; Status UNV Niacin (Niacin) 500 mg QHS PO ; Start 06/28/18 at 21:00; Status UNV Psyllium Hydrophilic Mucilloid (Metamucil (Sugar Free)) 1 pkt QHS PO ; Start 06/28/18 at 21:00; Status UNV Fish Oil (Fish Oil) 3,000 mg BID PO ; Start 06/28/18 at 09:00; Status UNV Miscellaneous Information (* Miscellaneous Pharmacy Order) Discontinue current oral sulfonylur... ONCE ONCE XX ; Start 06/28/18 at 09:30; Stop 06/28/18 at 09:31; Status UNV Diagnostic Test (Pha) (Accu-Chek) 1 ea 02 XX ; Start 06/29/18 at 02:00; Status UNV Diagnostic Test (Pha) (Accu-Chek) 1 ea 2 HOURS AFTER MEALS XX ; Start 06/28/18 at 09:35; Status UNV Insulin Glargine (Lantus) 23 units DAILY@0800 SC ; Start 06/29/18 at 08:00; Status UNV Insulin Aspart (Novolog Insulin Pen) 8 unit WITH MEALS SC ; Start 06/28/18 at 11:30; Status UNV Miscellaneous Information (* Miscellaneous Pharmacy Order) HYPOGLYCEMIA PROTOCOL w... ONCE ONCE XX ; Start 06/28/18 at 09:30; Stop 06/28/18 at 09:31; Status UNV Insulin Aspart (Novolog Insulin Pen) NOVOLOG *MODERATE* ALGORITHM WITH MEALS BEDTIME SC ; Start 06/28/18 at 11:30; Status UNV Miscellaneous Information (* Miscellaneous Pharmacy Order) Discontinue all previ... ONCE ONCE XX ; Start 06/28/18 at 09:30; Stop 06/28/18 at 09:31; Status UNV DOUGLAS BAE MD Jun 28, 2018 09:25
[2018-06-28] MEDS: ACCU-CHEK XX SCH ×3 (09:35→19:55)
[2018-06-28] MEDS ORDERED: GLUCOSE GEL 15 GRAM TUBE BUCCAL PRN (10:00)
[2018-06-28] MEDS ORDERED: GLUCAGON 1 MG INJ IM PRN (10:00)
[2018-06-28] MEDS ORDERED: GLUCOSE GEL 15 GRAM TUBE PO PRN ×2 (10:00)
[2018-06-28] MEDS ORDERED: DEXTROSE 50% 50 ML SYRINGE IV PRN ×2 (10:00)
[2018-06-28] MEDS ORDERED: REGADENOSON 0.4 MG/5 ML SYG ONE (10:20)
[2018-06-28] MEDS ORDERED: INSULIN GLARGINE [LANTus] (100 UNITS/ML) SYG SC SCH (10:30)
--- NOTE | 2018-06-28 13:10 | CONS ---
DATE OF ADMISSION: 06/26/2018 DATE OF CONSULTATION: 06/28/2018 TYPE OF CONSULTATION: Cardiology. REASON FOR CONSULTATION: Chest pain, assess for acute coronary syndrome. REQUESTING PHYSICIAN: Douglas Manzo MD, from the hospitalist service. HISTORY OF PRESENT ILLNESS: Mr. Subramanian is a 53-year-old male with a history of familial hypertrigly ceridemia, diabetes mellitus, hypertension, recurrent pancreatitis, polysubstance abuse and anxiety, who has been admitted recently for elevated triglyceride levels, bouts of pancreatitis and need for p lasmapheresis, who presents this time with complaints of chest and abdominal pain ongoing for approxi mately 2 days. The patient had pain in his epigastric area and also radiated into chest with subster nal chest pressure. The patient did have some nausea, back pain and therefore presented to the emerg ency department. Initially upon arrival, temperature was 97.1, blood pressure 160/90, pulse 110, res piratory rate 18, satting 100%. The patient's labs revealed a white blood cell count of 7.3, hemoglo bin 16, platelet count of 207, a sodium of 136, potassium 4.1, creatinine 0.8, BUN 9. Troponin negat awilda. Triglycerides are greater than 1505, total cholesterol 239, HDL 25. Lipase 121. TSH of 3.8. LDL ____ calculated the LDL and triglycerides levels. The patient then underwent a head CT revealing no acute intracranial abnormalities. An abdominopelvic CT revealed no mass ____ or focal acute infl ammatory process, small hiatal hernia and a chest x-ray that revealed no evidence of acute cardiopulm onary disease. The patient's electrocardiogram revealed sinus tachycardia, rate 113, normal axis, no rmal intervals, inferior T-wave inversion. The patient was subsequently admitted to the hospital dir ectly to the ICU due to overflow, has had negative troponins x3 and since admit continued to complain of substernal chest pain. The patient remains on statin, fish oil and gemfibrozil for treatment of his cholesterol. PAST MEDICAL HISTORY: As above in HPI. MEDICATIONS CURRENTLY IN HOSPITAL: 1. Insulin. 2. Niacin 500 at bedtime. 3. Fish oil 3 g b.i.d. 4. Aspirin 325 mg daily. 5. Lantus. 6. Lisinopril 10 mg daily. 7. Cymbalta. 8. Neurontin. 9. Protonix. 10. Atenolol 25 mg p.o. b.i.d. 11. Lipitor 80 mg at bedtime. 12. Lopid 600 mg p.o. b.i.d. 13. Sublingual nitroglycerin p.r.n. 14. Percocet p.r.n. ALLERGIES: 1. HYDROCODONE. 2. MORPHINE. SOCIAL HISTORY: Ongoing tobacco usage, history of substance abuse. FAMILY HISTORY: No history of sudden cardiac or early CAD. REVIEW OF SYSTEMS: As above in HPI. CONSTITUTIONAL: No fevers, chills. PULMONARY: No current shortness of breath. CARDIOVASCULAR: Intermittent chest pain. GASTROINTESTINAL: No vomiting. GENITOURINARY: No hematuria. MUSCULOSKELETAL: Degenerative joint disease. PSYCHIATRIC: Positive anxiety. NEUROLOGIC: No documented CVA. ENDOCRINE: Diabetes mellitus. MUSCULOSKELETAL: Back pain. PHYSICAL EXAMINATION: VITAL SIGNS: Temperature of 98.3, blood pressure 122/88, pulse 67, respiratory rate 13, satting 97%. GENERAL: The patient is sleeping, arousable. NECK: JVP approximately is 8 to 9 cm water. CHEST: Fair air movement throughout. HEART: Regular rate and rhythm. Normal S1, S2, I/ systolic murmur. Nondisplaced PMI. ABDOMEN: Positive bowel sounds, soft. EXTREMITIES: No significant pitting edema, 1+ pulses bilaterally posterior tibial. LABORATORY DATA: Most recently from today, sodium 138, potassium 4.3, creatinine 0.9, BUN 10. HDL 2 3, LDL 10.1, triglycerides 1050 mildly down, total cholesterol 234. White blood cell count 6.1, hemo globin 14.3, platelet count 177. IMAGING STUDIES: As above in HPI. No further imaging studies for my review at this time. ELECTROCARDIOGRAM: As above in HPI. No further electrocardiogram for my review at this time. IMPRESSION: 1. Chest pain, assess for acute coronary syndrome with negative troponins x3. The patient has diabe misti and familial hypertriglyceridemia. 2. Familial hypertriglyceridemia on multiple medications including statin and fish oil, fibrates, ni acin with no need for plasmapheresis this time for hematology/oncology. 3. Epigastric pain and history of pancreatitis. 4. Upper extremity numbness. 5. Diabetes mellitus. 6. Hypertension. 7. Substance abuse. RECOMMENDATIONS: 1. At this time, we would transfer the patient out of ICU to total stress test tele or med/surg. 2. We are going to continue the patient's atenolol for blood pressure and heart rate control. We wi ll additionally continue the patient's multiple lipid-lowering agents with fish oil, niacin, fibrates and statin. 3. Additionally continue the patient's Zestril to control blood pressure. 4. Continue to follow the patient's triglycerides. 5. Continue treatment and work up the etiology of patient's pain. 6. Follow the patient's blood sugars closely with Lantus and the patient will undergo Lexiscan today to assess for any possible ischemia lending to symptoms of chest pain. Thank you for allowing me to take part in the care of this patient. I will continue to follow him ve ry closely with you with further recommendations to be made as the patient progresses [facility]. Dictated By: DOUGLAS WARREN/BLESSING Conf#: [id number] DID#: [id number] CC: BETTY KENNEY; DOUGLAS MANZO MD; ARAVIND EDEN MD; SUGAR GILES MD;*EndCC*
[2018-06-28] MEDS: INSULIN ASPART [NOVOLOG] 3 ML PEN SC SCH ×5 (13:42→21:00)
--- NOTE | 2018-06-28 13:59 | CONS ---
Assessment/Plan Assessment/Plan Assessment/Plan (Daily) #Hypertriglyceridemia -patient's TGA were greater than 3000 when check on 06/21/18 -with the insulin gtt they have come down to 1100 -furthermore there is no evidence of acute pancreatitis given the normal lipase -I agree with his out patient per diem rn that we should hold on plasma exchange only unless it is an emergency -given the TGA's have come down with insulin, we will not perform plasma ex change at this time -one his TGA < 1000 he can be discharged to continue with his hyperlipidemia med s as an out patient #DM -continue insulin per PMD #HTN -continue Atenolol, and lisinopril Thank you for the opportunity to participate in this patients care A total of 40 minutes of face to face time was spent speaking with the patient, of which greater than 50% was spent in counseling and coordination of care and the detailed question and answer session. Consultation Date/Type/Reason Admit Date/Time June 27, 2018 Date of Consultation: Jun 28, 2018 Type of Consult oncology Reason for Consultation hypertriglyceridemia. need for plasma exchange Requesting Provider: TIN BAE MD Date/Time of Note DATE: 06/28/18 TIME: 13:49 Hx of Present Illness Mr Subramanian is a 52 yo male with a history of multiple episodes of acute pancreatitis secondary to severe hypertriglyceridemia. per records patient's triglyceride level is at times been as elevated at 6000. Patient has required over 20 hospitalizations within the last two years for chronic pancreatitis. Patient currently is followed by cardiology and is on atorvastatin forty milligrams a day, omega-3, gemfibrozil 600 milligrams b.i.d. and niacin. Patient has required IV insulin during past hospitalization. Since 2016 patient has received plasmapheresis 4x. 06/2017 patient was referred to a partition making machine operator for consideration of plasmapheresis given the uncontrollable hypertriglyceridemia. he was subsequently plasmapheresis to and his triglyceride level went down to 464 after treatment 10/26/17 patient was admitted to [facility] again for therapeutic p lasmapheresis for control of severe hypertriglyceridemia. Patient received plasmapheresis x 3 with the outpatient plan of monitoring his triglycerides every three months and performing plasmapheresis if the triglycerides exceeded 1000. patient was also started on fish oil during this hospitalization. After three doses of plasmapheresis and the insulin drip, his triglycerides decreased to 273 and he was discharged 12/12/17- 12/15/17 pt again admitted to [facility] where he received 3 days of plasma exc hange. TGA went from > 1575 to 480 prior to discharge 02/22/18 TGA 1759 03/08/18 - 03/12/18 pt received 3 doses of plasma exchange. on discharge pt;s TGA level was 430. severe pancreatitis pain 04/08/18 TGA 837 06/22/18 TGA 3195 Currently 06/27/17 pt presents with abdominal pain. Lipase is normal. Initial triglycerides are > 1500 but after insulin gtt was started they have dropped to 1100. Pt is cu rrently being followed by a per diem rn at [facility], Dr Pate who has stated that patient should hold on plasma exchange as long as possible and should only get plasma exchange it if is an emergency. Constitutional: poor po Eyes: no complaints ENT: no complaints Respiratory: no complaints Cardiovascular: no complaints Gastrointestinal: pain Genitourinary: no complaints Musculoskeletal: back pain, bone/joint pain Skin: no complaints Neurologic: no complaints Past Medical History Medical History: angina, diabetes (Beatties mellitus type II), high cholesterol (Familial hypertriglyceridemia), hypertension (Essential hypertension), pancreatitis (Chronic recurrent pancreatitis due to hypertriglyceridemia, reports he does not drink), other (Asthma persistent moderate, migraine syndrome, anxiety disorder, depression) Home Meds Active Scripts Pantoprazole (Protonix) 40 Mg Tabec, 40 MG PO DAILY for 30 Days, #30 TAB 4 Refills Prov:CHANTELLE PARRA MD 12/16/17 Atenolol* (Atenolol*) 25 Mg Tablet, 25 MG PO BID for 30 Days, #60 TAB 5 Refills Prov:CHANTELLE PARRA MD 12/16/17 [place]-3/Dha/Epa/Fish Oil (FISH OIL EC 1,000 MG SOFTGEL) 1 Each Capsule.dr, 2000 MG PO BID for 30 Days, #60 CAP 4 Refills Prov:CHANTELLE PARRA MD 12/16/17 Lidocaine (Lidoderm) 1 Each Adh..patch, 1 EACH TP DAILY for 30 Days, #30 PATCH 6 Refills Prov:CHANTELLE PARRA MD 12/16/17 Oxycodone HCl/Acetaminophen (Oxycodone-Acetaminophen 5-325) 1 Each Tablet, 1 TAB PO Q6H PRN for PAIN LEVEL 4-6 for 7 Days, #20 TAB Prov:CHANTELLE PARRA MD 12/16/17 Neomycin/Polymyxin/Bacitr/Hc* (Cortisporin* Topical) 15 Gm Oint, 1 APPLIC TOP TID for 10 Days, #1 TUB 2 Refills Prov:CHANTELLE PARRA MD 12/16/17 Metformin* (Glucophage*) 500 Mg Tab, 500 MG PO BID WITH MEALS for 30 Days, #60 TAB 3 Refills Prov:CHANTELLE PARRA MD 12/16/17 Insulin Aspart* (Novolog Insulin Pen*) 100 Unit/Ml Soln, 10 UNIT SC WITH MEALS for 30 Days, #5 EA 5 Refills Prov:CHANTELLE PARRA MD 12/16/17 Gemfibrozil* (Gemfibrozil*) 600 Mg Tablet, 600 MG PO BID for 30 Days, #60 TAB 3 Refills Prov:CHANTELLE PARRA MD 12/14/17 Reported Medications Phentermine Hcl (Phentermine Hcl) 37.5 Mg Tablet, 37.5 MG PO DAILY, TAB 03/12/18 Icosapent Ethyl (VASCEPA) 1 Gm Capsule, 3 GM PO TIDM A, CAP 03/08/18 Ranitidine Hcl* (Ranitidine Hcl*) 75 Mg Tablet, 150 MG PO BID PRN for HEARTBURN, #60 TAB 03/05/18 Lisinopril* (Lisinopril*) 10 Mg Tablet, 10 MG PO DAILY, #30 TAB 03/05/18 Atorvastatin* (Atorvastatin*) 80 Mg Tablet, MG PO QHS, #30 TAB 03/05/18 Phentermine Hcl (Phentermine Hcl) 37.5 Mg Tablet, 37.5 MG PO DAILY, TAB 03/05/18 Insulin Lispro (Humalog) 100 Unit/1 Ml Cartridge, 5 UNIT SQ AC A, EA 03/05/18 Terbinafine* (Lamisil*) 250 Mg Tablet, 250 MG PO DAILY, TAB 12/10/17 Metoclopramide Hcl* (Metoclopramide Hcl*) 10 Mg Tablet, 10 MG PO Q8H PRN for NAUSEA AND OR VOMITING, TAB 12/10/17 Gabapentin* (Gabapentin*) 400 Mg Capsule, 400 MG PO TID, #90 CAP 12/10/17 Liraglutide (Victoza 3-Alvaro) 0.6 Mg/0.1 Ml Pen.injctr, 1.8 MG SQ DAILY, SYR 12/10/17 Sumatriptan* Nasal (Sumatriptan* Nasal) 5 Mg [place], 5 MG NASAL DAILY PRN for MIGRAINE HEADACHE, SPRAY If headache returns/persists, may repeat dose once after 2 hours; MAX 40 mg/24 hours 12/10/17 Clonazepam* (Klonopin*) 1 Mg Tablet, 1 MG PO QID PRN for ANXIETY, TAB 12/10/17 Hydromorphone Hcl* (Hydromorphone Hcl*) 2 Mg Tablet, 2 MG PO TID PRN for PAIN, TAB 12/10/17 Duloxetine Hcl* (Cymbalta*) 30 Mg Capsule.dr, 60 MG PO DAILY, CAP 12/10/17 Insulin Glargine,Hum.rec.anlog (Basaglar Kwikpen U-100) 100 Unit/1 Ml Insuln.pen, 20 UNIT SC QHS, EA 12/10/17 Zolpidem Tartrate* (Zolpidem Tartrate*) 10 Mg Tablet, 10 MG PO QHS PRN for INSOMNIA, #30 TAB 12/10/17 Albuterol Sulfate (Proair Respiclick) 90 Mcg Aer.pow.ba, 1 PUFF INHALATION Q4, #1 BOTTLE 12/10/17 Hydroxyzine Hcl* (Hydroxyzine Hcl*) 25 Mg Tablet, 25 MG PO Q8H PRN for ITCHING, #30 TAB 12/10/17 Medications Current Medications IV Flush (NS 3 ml) 3 ml PER PROTOCOL IV ; Start 06/26/18 at 20:30 Ondansetron HCl (Zofran Inj) 4 mg Q6H PRN IV NAUSEA/VOMITING; Start 06/26/18 at 20:30 Nitroglycerin (Nitroglycerin (Sl Tab) 0.4 Mg) 1 tab Q5M PRN SL .CHEST PAIN; Start 06/26/18 at 20:30 Oxycodone/ Acetaminophen (Percocet (5/ 325)) 1 tab Q6H PRN PO .PAINS 4-6; Start 06/26/18 at 20:30 Atorvastatin Calcium (Lipitor) 80 mg HS PO Last administered on 06/27/18at 20:25; Admin Dose 80 MG; Start 06/26/18 at 21:00 Albuterol/ Ipratropium (Duoneb) 3 ml Q4H RESP THERAPY PRN HHN SHORTNESS OF BREATH; Start 06/26/18 at 21:00 Lisinopril (Zestril) 10 mg DAILY PO Last administered on 06/28/18at 08:13; Admin Dose 10 MG; Start 06/27/18 at 09:00 Lorazepam (Ativan) 0.5 mg Q6H PRN IV anxiety; Start 06/26/18 at 21:00 Duloxetine HCl (Cymbalta) 60 mg DAILY PO Last administered on 06/28/18at 08:13; Admin Dose 60 MG; Start 06/27/18 at 09:00 Labetalol HCl (Labetalol) 10 mg Q4 PRN IV sbp >160; Start 06/26/18 at 21:00 Gemfibrozil (Lopid) 600 mg BID PO Last administered on 06/28/18at 08:13; Admin Dose 600 MG; Start 06/26/18 at 21:00 Atenolol (Tenormin) 25 mg BID PO Last administered on 06/28/18at 08:14; Admin Dose 25 MG; Start 06/26/18 at 21:30 Gabapentin (Neurontin) 300 mg TID PO Last administered on 06/28/18at 08:14; Admin Dose 300 MG; Start 06/27/18 at 09:00 Zolpidem Tartrate (Ambien) 10 mg HS PRN PO INSOMNIA Last administered on 06/27/18at 20:32; Admin Dose 10 MG; Start 06/27/18 at 00:00 Miscellaneous Information Patients own medicat... BID@,16 XX ; Start 06/27/18 at 10:00 Aspirin (Aspirin) 325 mg QHS PO ; Start 06/28/18 at 20:30 Psyllium Hydrophilic Mucilloid (Metamucil (Sugar Free)) 1 pkt QHS PO ; Start 06/28/18 at 21:00 Diagnostic Test (Pha) (Accu-Chek) 1 ea 02 XX ; Start 06/29/18 at 02:00 Diagnostic Test (Pha) (Accu-Chek) 1 ea 2 HOURS AFTER MEALS XX ; Start 06/28/18 at 09:35 Insulin Glargine (Lantus) 23 units DAILY@0800 SC ; Start 06/29/18 at 08:00 Insulin Aspart (Novolog Insulin Pen) 8 unit WITH MEALS SC ; Start 06/28/18 at 11:30 Insulin Aspart (Novolog Insulin Pen) NOVOLOG *MODERATE* ALGORITHM WITH MEALS BEDTIME SC ; Start 06/28/18 at 11:30 Fish Oil (Fish Oil) 3,000 mg BID PO ; Start 06/28/18 at 21:00 Miscellaneous Information 1 ea NOTE XX ; Start 06/28/18 at 10:00 Glucose (Glutose) 15 gm Q15M PRN PO DECREASED GLUCOSE; Start 06/28/18 at 10:00 Glucose (Glutose) 22.5 gm Q15M PRN PO DECREASED GLUCOSE; Start 06/28/18 at 10:00 Dextrose (D50w Syringe) 25 ml Q15M PRN IV DECREASED GLUCOSE; Start 06/28/18 at 10:00 Dextrose (D50w Syringe) 50 ml Q15M PRN IV DECREASED GLUCOSE; Start 06/28/18 at 10:00 Glucagon (Glucagen) 1 mg Q15M PRN IM DECREASED GLUCOSE; Start 06/28/18 at 10:00 Glucose (Glutose) 15 gm Q15M PRN BUCCAL DECREASED GLUCOSE; Start 06/28/18 at 10:00 Pantoprazole (Protonix Tab) 40 mg DAILY@06 PO ; Start 06/29/18 at 06:00 Niacin (Niacin) 500 mg QHS PO ; Start 06/28/18 at 21:00 Allergies: Coded Allergies: hydrocodone (Verified Allergy, Unknown, 12/10/17) morphine (Verified Allergy, Unknown, 12/10/17) Past Surgical History Past Surgical Hx: no surgical history Family History Significant Family History: no pertinent family hx Social History Alcohol Use: none (Denies any alcohol consumption) Smoking Status: Current every day smoker (Reports cigar smoking) Drug Use: marijuana (Reports he uses CBD oil but occasionally does use more regular marijuana) Exam/Review of Systems Exam Vitals Vital Signs Date Temp Pulse Resp B/P (MAP) Pulse Ox O2 O2 Flow FiO2 Time Delivery Rate 06/28/18 97.3 70 18 122/72 96 Room Air 12:26 (89) 06/28/18 2.0 03:00 Intake and Output 06/27/18 06/27/18 06/28/18 1414:59 22:59 06:59 IntakeIntake Total 1532 ml 1151 ml 1025 ml OutputOutput Total 1300 ml 1450 ml 800 ml BalanceBalance 232 ml -299 ml 225 ml Constitutional: alert, oriented Psych: no complaints Head: normocephalic Eyes: nl conjunctiva ENMT: nl external ears & nose Neck: supple Respiratory: clear to auscultation Cardiovascular: regular rate and rhythm Gastrointestinal: soft Musculoskeletal: nl extremities to inspection Extremities: normal pulses Results Result Diagram: 06/28/18 0514 06/28/18 0513 Results 24hrs Laboratory Tests Test 06/27/18 14:07 06/27/18 15:13 06/27/18 16:10 06/27/18 17:46 Bedside Glucose 207 162 197 161 Test 06/27/18 20:00 06/27/18 21:20 06/27/18 22:04 06/28/18 00:00 Bedside Glucose 108 156 146 141 Test 06/28/18 00:22 06/28/18 02:27 06/28/18 04:11 06/28/18 04:14 Triglycerides Level 1347 H Bedside Glucose 125 132 Urine Opiates Screen Positive Urine Barbiturates Negative Urine Amphetamines Negative Screen Urine Negative Benzodiazepines Screen Urine Cocaine Screen Negative Urine Cannabinoids Positive Test 06/28/18 05:13 06/28/18 05:14 06/28/18 05:54 06/28/18 08:02 Sodium Level 138 Potassium Level 4.3 Chloride Level 99 Carbon Dioxide Level 27 Anion Gap 12 Blood Urea Nitrogen 10 Creatinine 0.96 Est Glomerular > 60 Filtrat Rate mL/min Glucose Level 135 Calcium Level 9.0 Phosphorus Level 4.3 Magnesium Level 1.8 Triglycerides Level 1150 H Cholesterol Level 234 H LDL Cholesterol, Calculated HDL Cholesterol 23 L Cholesterol/HDL 10.1 Ratio White Blood Count 6.1 Red Blood Count 4.78 Hemoglobin 14.3 Hematocrit 43.5 Mean Corpuscular 91.0 Volume Mean Corpuscular 29.9 Hemoglobin Mean Corpuscular 32.9 Hemoglobin Concent Red Cell 12.8 Distribution Width Platelet Count 177 Mean Platelet Volume 10.1 Immature 0.700 H Granulocytes % Neutrophils % 53.1 Lymphocytes % 35.3 Monocytes % 8.6 Eosinophils % 1.8 Basophils % 0.5 Nucleated Red Blood 0.0 Cells % Immature 0.040 H Granulocytes # Neutrophils # 3.3 Lymphocytes # 2.2 Monocytes # 0.5 Eosinophils # 0.1 Basophils # 0.0 Nucleated Red Blood 0.0 Cells # Bedside Glucose 165 127 Test 06/28/18 13:06 Bedside Glucose 123 Medications Medication Current Medications IV Flush (NS 3 ml) 3 ml PER PROTOCOL IV ; Start 06/26/18 at 20:30 Ondansetron HCl (Zofran Inj) 4 mg Q6H PRN IV NAUSEA/VOMITING; Start 06/26/18 at 20:30 Nitroglycerin (Nitroglycerin (Sl Tab) 0.4 Mg) 1 tab Q5M PRN SL .CHEST PAIN; Start 06/26/18 at 20:30 Oxycodone/ Acetaminophen (Percocet (5/ 325)) 1 tab Q6H PRN PO .PAINS 4-6; Start 06/26/18 at 20:30 Atorvastatin Calcium (Lipitor) 80 mg HS PO Last administered on 06/27/18at 20:25; Admin Dose 80 MG; Start 06/26/18 at 21:00 Albuterol/ Ipratropium (Duoneb) 3 ml Q4H RESP THERAPY PRN HHN SHORTNESS OF BREATH; Start 06/26/18 at 21:00 Lisinopril (Zestril) 10 mg DAILY PO Last administered on 06/28/18at 08:13; Admin Dose 10 MG; Start 06/27/18 at 09:00 Lorazepam (Ativan) 0.5 mg Q6H PRN IV anxiety; Start 06/26/18 at 21:00 Duloxetine HCl (Cymbalta) 60 mg DAILY PO Last administered on 06/28/18at 08:13; Admin Dose 60 MG; Start 06/27/18 at 09:00 Labetalol HCl (Labetalol) 10 mg Q4 PRN IV sbp >160; Start 06/26/18 at 21:00 Gemfibrozil (Lopid) 600 mg BID PO Last administered on 06/28/18at 08:13; Admin Dose 600 MG; Start 06/26/18 at 21:00 Atenolol (Tenormin) 25 mg BID PO Last administered on 06/28/18at 08:14; Admin Dose 25 MG; Start 06/26/18 at 21:30 Gabapentin (Neurontin) 300 mg TID PO Last administered on 06/28/18at 08:14; Admin Dose 300 MG; Start 06/27/18 at 09:00 Zolpidem Tartrate (Ambien) 10 mg HS PRN PO INSOMNIA Last administered on 06/27/18at 20:32; Admin Dose 10 MG; Start 06/27/18 at 00:00 Miscellaneous Information Patients own medicat... BID@ XX ; Start 06/27/18 at 10:00 Aspirin (Aspirin) 325 mg QHS PO ; Start 06/28/18 at 20:30 Psyllium Hydrophilic Mucilloid (Metamucil (Sugar Free)) 1 pkt QHS PO ; Start 06/28/18 at 21:00 Diagnostic Test (Pha) (Accu-Chek) 1 ea 02 XX ; Start 06/29/18 at 02:00 Diagnostic Test (Pha) (Accu-Chek) 1 ea 2 HOURS AFTER MEALS XX ; Start 06/28/18 at 09:35 Insulin Glargine (Lantus) 23 units DAILY@0800 SC ; Start 06/29/18 at 08:00 Insulin Aspart (Novolog Insulin Pen) 8 unit WITH MEALS SC ; Start 06/28/18 at 11:30 Insulin Aspart (Novolog Insulin Pen) NOVOLOG *MODERATE* ALGORITHM WITH MEALS BEDTIME SC ; Start 06/28/18 at 11:30 Fish Oil (Fish Oil) 3,000 mg BID PO ; Start 06/28/18 at 21:00 Miscellaneous Information 1 ea NOTE XX ; Start 06/28/18 at 10:00 Glucose (Glutose) 15 gm Q15M PRN PO DECREASED GLUCOSE; Start 06/28/18 at 10:00 Glucose (Glutose) 22.5 gm Q15M PRN PO DECREASED GLUCOSE; Start 06/28/18 at 10:00 Dextrose (D50w Syringe) 25 ml Q15M PRN IV DECREASED GLUCOSE; Start 06/28/18 at 10:00 Dextrose (D50w Syringe) 50 ml Q15M PRN IV DECREASED GLUCOSE; Start 06/28/18 at 10:00 Glucagon (Glucagen) 1 mg Q15M PRN IM DECREASED GLUCOSE; Start 06/28/18 at 10:00 Glucose (Glutose) 15 gm Q15M PRN BUCCAL DECREASED GLUCOSE; Start 06/28/18 at 10:00 Pantoprazole (Protonix Tab) 40 mg DAILY@06 PO ; Start 06/29/18 at 06:00 Niacin (Niacin) 500 mg QHS PO ; Start 06/28/18 at 21:00 ARAVIND EDEN M.D. Jun 28, 2018 13:59
--- NOTE | 2018-06-28 14:58 | CARRPT ---
DATE OF PROCEDURE: 06/28/2018 REASON FOR STRESS TESTING: Chest pain, assess for ischemia. BASELINE VITAL SIGNS AND ELECTROCARDIOGRAM: Electrocardiogram reveals normal sinus rhythm, rate of 6 1, normal axis, normal intervals with no significant ST-T wave abnormalities but blood pressure 121/8 2, pulse 61. PROCEDURE: The patient underwent standard Lexiscan infusion protocol over 10 seconds followed by rad iolabeled tracer. The patient's test was stopped at completion of protocol. Maximal achieved blood pressure during the test, 141/73. Maximum heart rate during test 76. ELECTROCARDIOGRAM FINDINGS: The patient did not develop any new Lexiscan-induced ST changes from bas zana abnormalities during Lexiscan infusion. SYMPTOMS: Patient had no complaints of chest pain or shortness of breath during stress testing. IMPRESSION: 1. No Lexiscan-induced ST or T-wave changes from baseline abnormalities are diagnostic for ischemia. 2. No complaints of chest pain or shortness of breath during stress testing. 3. No documented premature ventricular contractions during stress test. 4. Report of nuclear images to follow in separate dictation. Dictated By: DOUGLAS WARREN/NTS Conf#: [id number] DID#: [id number] CC: SUGAR GILES MD; DOUGLAS BAE MD;*EndCC*
[2018-06-28] MEDS: OXYCODONE/ACETAMINOPHEN (5/325) TAB PO PRN (18:31)
[2018-06-28] MEDS ORDERED: NIACIN 500 MG TAB PO SCH (21:00)
[2018-06-28] MEDS: PSYLLIUM (SUGAR FREE) PACKET PO SCH (21:27)
[2018-06-28] MEDS: ATORVASTATIN 80 MG TAB PO SCH (21:27)
[2018-06-29] VITALS (13 sets, daily range): BP systolic 102–121; BP diastolic 60–84; PULSE 57–80; RESP 14–18
[2018-06-29] MEDS: GEMFIBROZIL 600 MG TAB PO SCH ×3 (00:16→21:43)
[2018-06-29] MEDS: ACCU-CHEK XX SCH ×4 (02:00→20:20)
[2018-06-29] MEDS: PANTOPRAZOLE (EC) 40 MG TAB PO SCH (06:00)
[2018-06-29] MEDS: INSULIN ASPART [NOVOLOG] 3 ML PEN SC SCH ×7 (07:50→21:00)
[2018-06-29] MEDS: FISH OIL 1,000 MG CAP PO SCH ×2 (09:00→21:39)
[2018-06-29] MEDS: ATENOLOL 25 MG TAB PO SCH ×2 (09:00→21:39)
[2018-06-29] MEDS: GABAPENTIN 300 MG CAP PO SCH ×3 (09:36→21:39)
[2018-06-29] MEDS: DULOXETINE 30 MG CAP DR PO SCH (09:37)
[2018-06-29] MEDS: LISINOPRIL 10 MG TAB PO SCH (09:38)
[2018-06-29] MEDS: INSULIN GLARGINE [LANTus] (100 UNITS/ML) SYG SC SCH (09:42)
--- NOTE | 2018-06-29 09:54 | CONS ---
Consult Date/Type/Reason Admit Date/Time Jun 26, 2018 at 21:42 Initial Consult Date 06/28/18 Requesting Provider: TIN BAE MD Date/Time of Note DATE: 06/29/18 TIME: 09:53 Subjective NO acute events - pt had + stares test - plan for LHC today with DR. Guajardo- pt had lots of questions about the procedure - we hada long discussion - agreed to proceed. ROS: No fever, no chills, no nausea, no vomiting, no diarrhea/constipation No recent weight changes No chest pain, no PND, no orthopnea - mild SOB No dizziness, blurred vision No thirst, no heat or cold intolerance Objective Vitals Vital Signs Date Temp Pulse Resp B/P (MAP) Pulse Ox O2 O2 Flow FiO2 Time Delivery Rate 06/29/18 98.2 68 18 119/62 96 07:33 (81) 06/29/18 Room Air 01:11 06/28/18 2.0 03:00 Intake and Output 06/28/18 06/28/18 06/29/18 1414:59 22:59 06:59 IntakeIntake Total 261 ml 800 ml OutputOutput Total 700 ml BalanceBalance -439 ml 800 ml Exam General: WN/WD/NAD, AOx 3 HEENT: Unicetric/atraumatic/EOMI ( follows commands) NECK: JVD elevated, no thyromegaly Lymph: no lymphadenopathy HEART: regular with no S3, II/ systolic murmur at apex LUNGS: Coarse sounds ABD: soft, NT, ND, +BS : Intact Neuro: non focal SKIN: chronic changes EXT: trace edema Results/Medications Result Diagram: 06/29/18 0434 06/29/18 0434 Results 24 hrs Laboratory Tests Test 06/28/18 13:06 06/28/18 16:23 06/28/18 18:00 06/28/18 21:45 Bedside Glucose 123 120 114 124 Test 06/28/18 21:46 06/29/18 04:34 06/29/18 09:32 Bedside Glucose 115 136 White Blood Count 5.3 Red Blood Count 4.72 Hemoglobin 14.3 Hematocrit 42.9 Mean Corpuscular 90.9 Volume Mean Corpuscular 30.3 Hemoglobin Mean Corpuscular 33.3 Hemoglobin Concent Red Cell 12.6 Distribution Width Platelet Count 182 Mean Platelet Volume 10.8 H Immature 0.600 H Granulocytes % Neutrophils % 46.5 Lymphocytes % 42.0 Monocytes % 8.4 Eosinophils % 1.9 Basophils % 0.6 Nucleated Red Blood 0.0 Cells % Immature 0.030 Granulocytes # Neutrophils # 2.5 Lymphocytes # 2.2 Monocytes # 0.4 Eosinophils # 0.1 Basophils # 0.0 Nucleated Red Blood 0.0 Cells # Prothrombin Time 11.7 L Prothrombin Time 0.9 Ratio INR International 0.85 Normalized Ratio Activated 27.6 Partial Thromboplast Time Sodium Level 138 Potassium Level 4.5 Chloride Level 98 Carbon Dioxide Level 26 Anion Gap 14 H Blood Urea Nitrogen 14 Creatinine 1.11 Est Glomerular > 60 Filtrat Rate mL/min Glucose Level 122 Calcium Level 9.1 Triglycerides Level 938 H Cholesterol Level 214 H LDL Cholesterol, 3 Calculated HDL Cholesterol 23 L Cholesterol/HDL 9.3 Ratio Home Meds Active Scripts Pantoprazole (Protonix) 40 Mg Tabec, 40 MG PO DAILY for 30 Days, #30 TAB 4 Refills Prov:CHANTELLE PARRA MD 12/16/17 Atenolol* (Atenolol*) 25 Mg Tablet, 25 MG PO BID for 30 Days, #60 TAB 5 Refills Prov:CHANTELLE PARRA MD 12/16/17 Clio-3/Dha/Epa/Fish Oil (FISH OIL EC 1,000 MG SOFTGEL) 1 Each Capsule.dr, 2000 MG PO BID for 30 Days, #60 CAP 4 Refills Prov:CHANTELLE PARRA MD 12/16/17 Lidocaine (Lidoderm) 1 Each Adh..patch, 1 EACH TP DAILY for 30 Days, #30 PATCH 6 Refills Prov:CHANTELLE PARRA MD 12/16/17 Oxycodone HCl/Acetaminophen (Oxycodone-Acetaminophen 5-325) 1 Each Tablet, 1 TAB PO Q6H PRN for PAIN LEVEL 4-6 for 7 Days, #20 TAB Prov:CHANTELLE PARRA MD 12/16/17 Neomycin/Polymyxin/Bacitr/Hc* (Cortisporin* Topical) 15 Gm Oint, 1 APPLIC TOP TID for 10 Days, #1 TUB 2 Refills Prov:CHANTELLE PARRA MD 12/16/17 Metformin* (Glucophage*) 500 Mg Tab, 500 MG PO BID WITH MEALS for 30 Days, #60 TAB 3 Refills Prov:CHANTELLE PARRA MD 12/16/17 Insulin Aspart* (Novolog Insulin Pen*) 100 Unit/Ml Soln, 10 UNIT SC WITH MEALS for 30 Days, #5 EA 5 Refills Prov:CHANTELLE PARRA MD 12/16/17 Gemfibrozil* (Gemfibrozil*) 600 Mg Tablet, 600 MG PO BID for 30 Days, #60 TAB 3 Refills Prov:CHANTELLE PARRA MD 12/14/17 Reported Medications Phentermine Hcl (Phentermine Hcl) 37.5 Mg Tablet, 37.5 MG PO DAILY, TAB 03/12/18 Icosapent Ethyl (VASCEPA) 1 Gm Capsule, 3 GM PO TIDM A, CAP 03/08/18 Ranitidine Hcl* (Ranitidine Hcl*) 75 Mg Tablet, 150 MG PO BID PRN for HEARTBURN, #60 TAB 03/05/18 Lisinopril* (Lisinopril*) 10 Mg Tablet, 10 MG PO DAILY, #30 TAB 03/05/18 Atorvastatin* (Atorvastatin*) 80 Mg Tablet, MG PO QHS, #30 TAB 03/05/18 Phentermine Hcl (Phentermine Hcl) 37.5 Mg Tablet, 37.5 MG PO DAILY, TAB 03/05/18 Insulin Lispro (Humalog) 100 Unit/1 Ml Cartridge, 5 UNIT SQ AC A, EA 03/05/18 Terbinafine* (Lamisil*) 250 Mg Tablet, 250 MG PO DAILY, TAB 12/10/17 Metoclopramide Hcl* (Metoclopramide Hcl*) 10 Mg Tablet, 10 MG PO Q8H PRN for NAUSEA AND OR VOMITING, TAB 12/10/17 Gabapentin* (Gabapentin*) 400 Mg Capsule, 400 MG PO TID, #90 CAP 12/10/17 Liraglutide (Victoza 3-Alvaro) 0.6 Mg/0.1 Ml Pen.injctr, 1.8 MG SQ DAILY, SYR 12/10/17 Sumatriptan* Nasal (Sumatriptan* Nasal) 5 Mg Crane, 5 MG NASAL DAILY PRN for MIGRAINE HEADACHE, SPRAY If headache returns/persists, may repeat dose once after 2 hours; MAX 40 mg/24 hours 12/10/17 Clonazepam* (Klonopin*) 1 Mg Tablet, 1 MG PO QID PRN for ANXIETY, TAB 12/10/17 Hydromorphone Hcl* (Hydromorphone Hcl*) 2 Mg Tablet, 2 MG PO TID PRN for PAIN, TAB 12/10/17 Duloxetine Hcl* (Cymbalta*) 30 Mg Capsule.dr, 60 MG PO DAILY, CAP 12/10/17 Insulin Glargine,Hum.rec.anlog (Basaglar Kwikpen U-100) 100 Unit/1 Ml Insuln.pen, 20 UNIT SC QHS, EA 12/10/17 Zolpidem Tartrate* (Zolpidem Tartrate*) 10 Mg Tablet, 10 MG PO QHS PRN for INSOMNIA, #30 TAB 12/10/17 Albuterol Sulfate (Proair Respiclick) 90 Mcg Aer.pow.ba, 1 PUFF INHALATION Q4, #1 BOTTLE 12/10/17 Hydroxyzine Hcl* (Hydroxyzine Hcl*) 25 Mg Tablet, 25 MG PO Q8H PRN for ITCHING, #30 TAB 12/10/17 Medications Current Medications IV Flush (NS 3 ml) 3 ml PER PROTOCOL IV ; Start 06/26/18 at 20:30 Ondansetron HCl (Zofran Inj) 4 mg Q6H PRN IV NAUSEA/VOMITING; Start 06/26/18 at 20:30 Nitroglycerin (Nitroglycerin (Sl Tab) 0.4 Mg) 1 tab Q5M PRN SL .CHEST PAIN; Start 06/26/18 at 20:30 Oxycodone/ Acetaminophen (Percocet (5/ 325)) 1 tab Q6H PRN PO .PAINS 4-6 Last administered on 06/28/18at 18:31; Admin Dose 1 TAB; Start 06/26/18 at 20:30 Atorvastatin Calcium (Lipitor) 80 mg HS PO Last administered on 06/28/18at 21:27; Admin Dose 80 MG; Start 06/26/18 at 21:00 Albuterol/ Ipratropium (Duoneb) 3 ml Q4H RESP THERAPY PRN HHN SHORTNESS OF BREATH; Start 06/26/18 at 21:00 Lisinopril (Zestril) 10 mg DAILY PO Last administered on 06/29/18at 09:38; Admin Dose 10 MG; Start 06/27/18 at 09:00 Lorazepam (Ativan) 0.5 mg Q6H PRN IV anxiety; Start 06/26/18 at 21:00 Duloxetine HCl (Cymbalta) 60 mg DAILY PO Last administered on 06/29/18 09:37; Admin Dose 60 MG; Start 06/27/18 at 09:00 Labetalol HCl (Labetalol) 10 mg Q4 PRN IV sbp >160; Start 06/26/18 at 21:00 Gemfibrozil (Lopid) 600 mg BID PO Last administered on 06/29/18 09:36; Admin Dose 600 MG; Start 06/26/18 at 21:00 Atenolol (Tenormin) 25 mg BID PO Last administered on 06/28/18 21:28; Admin Dose 25 MG; Start 06/26/18 at 21:30 Gabapentin (Neurontin) 300 mg TID PO Last administered on 06/29/18 09:36; Admin Dose 300 MG; Start 06/27/18 at 09:00 Zolpidem Tartrate (Ambien) 10 mg HS PRN PO INSOMNIA Last administered on 06/27/18 20:32; Admin Dose 10 MG; Start 06/27/18 at 00:00 Miscellaneous Information Patients own medicat... BID@10,16 XX ; Start 06/27/18 at 10:00 Aspirin (Aspirin) 325 mg QHS PO Last administered on 06/28/18 21:27; Admin Dose 325 MG; Start 06/28/18 at 20:30 Psyllium Hydrophilic Mucilloid (Metamucil (Sugar Free)) 1 pkt QHS PO Last ad ministered on 06/28/18 21:27; Admin Dose 1 PKT; Start 06/28/18 at 21:00 Diagnostic Test (Pha) (Accu-Chek) 1 ea 02 XX ; Start 06/29/18 at 02:00 Diagnostic Test (Pha) (Accu-Chek) 1 ea 2 HOURS AFTER MEALS XX ; Start 06/28/18 at 09:35 Insulin Glargine (Lantus) 23 units DAILY@0800 SC Last administered on 06/29/18 09:42; Admin Dose 23 UNITS; Start 06/29/18 at 08:00 Insulin Aspart (Novolog Insulin Pen) 8 unit WITH MEALS SC Last administered on 2/18/19at 18:25; Admin Dose 8 UNIT; Start 06/28/18 at 11:30 Insulin Aspart (Novolog Insulin Pen) NOVOLOG *MODERATE* ALGORITHM WITH MEALS BEDTIME SC ; Start 06/28/18 at 11:30 Fish Oil (Fish Oil) 3,000 mg BID PO Last administered on 06/28/18at 21:27; Admin Dose 3,000 MG; Start 06/28/18 at 21:00 Miscellaneous Information 1 ea NOTE XX ; Start 06/28/18 at 10:00 Glucose (Glutose) 15 gm Q15M PRN PO DECREASED GLUCOSE; Start 06/28/18 at 10:00 Glucose (Glutose) 22.5 gm Q15M PRN PO DECREASED GLUCOSE; Start 06/28/18 at 10:00 Dextrose (D50w Syringe) 25 ml Q15M PRN IV DECREASED GLUCOSE; Start 06/28/18 at 10:00 Dextrose (D50w Syringe) 50 ml Q15M PRN IV DECREASED GLUCOSE; Start 06/28/18 at 10:00 Glucagon (Glucagen) 1 mg Q15M PRN IM DECREASED GLUCOSE; Start 06/28/18 at 10:00 Glucose (Glutose) 15 gm Q15M PRN BUCCAL DECREASED GLUCOSE; Start 06/28/18 at 10:00 Pantoprazole (Protonix Tab) 40 mg DAILY@06 PO ; Start 06/29/18 at 06:00 Niacin (Niacin) 500 mg QHS PO Last administered on 06/28/18at 00:17; Admin Dose 500 MG; Start 06/28/18 at 21:00 Diazepam (Valium) 5 mg OC ONCE PO ; Start 06/29/18 at 12:00; Stop 06/29/18 at 12:01 Diphenhydramine HCl (Benadryl) 50 mg OC ONCE PO ; Start 06/29/18 at 12:00; Stop 06/29/18 at 12:01 RUI MENDES MD Jun 29, 2018 09:54
--- NOTE | 2018-06-29 10:33 | PN ---
Date/Time of Note Date/Time of Note DATE: 06/29/18 TIME: 10:31 Assessment/Plan VTE Prophylaxis Risk score (from Nsg)>0 risk: 1 SCD applied (from Nsg): Yes Pharmacological prophylaxis: NA/contraindicated Pharm contraindication: low risk/ambulating Lines/Catheters IV Catheter Type (from Nrsg): Saline Lock Urinary Cath still in place: No Assessment/Plan Assessment/Plan 53 yo man with history of familial hypertriglyceridemia presents with abdominal pain and exertional chest pain. # Chest pain - He reports negative stress test 1.5 years ago. Never had cardiac cath. Since stress test, has had worsening exertional stabbing substernal chest pain over past several months. - troponins neg x 3 - Cont daily aspirin - Ally-scan yesterday was possible for possible ischemia - Plan for cardiac cath today. # Epigastric pain -Lipase negative -Continue Protonix -Will advance diet # Hypertriglyceridemia - familial, TG on admission > 1575 - Transition to subQ insulin. - Resume home anti-lipid drugs - Per hematology, no plasmapheresis. - continue Atorvastatin, fish oil, gemfibrozil # Left upper extremity numbness -Likely secondary to patient's worsening peripheral neuropathy - head Ct neg - Neuro exam unremarkable. # Peripheral neuropathy - Continue gabapentin # Anxiety -IV Ativan as needed # Substance abuse -Urine drug screen negative # Diabetes mellitus - A1c = 7.0 -Continue subQ insulin # Hypertension -Control as needed, resume home meds Result Diagram: 06/29/18 0434 06/29/18 0434 Subjective 24 Hr Interval Summary Free Text/Dictation Patient feeling well. No acute overnight events. Plan for cardiac cath today around 14:30 Exam/Review of Systems Exam Vitals Vital Signs Date Temp Pulse Resp B/P (MAP) Pulse Ox O2 O2 Flow FiO2 Time Delivery Rate 06/29/18 98.2 68 18 119/62 96 07:33 (81) 06/29/18 Room Air 01:11 06/28/18 2.0 03:00 Intake and Output 06/28/18 06/28/18 06/29/18 1515:00 23:00 07:00 IntakeIntake Total 132 ml 800 ml OutputOutput Total 700 ml BalanceBalance -568 ml 800 ml Exam General: Patient sitting up, awake and alert. Mentation: Patient is alert and oriented 4 Head: Normocephalic atraumatic Eyes: EOMI, pupils reactive to light Neck: Supple, nontender, midline Respiratory: Clear to auscultation bilaterally Cardiovascular: Regular rate and rhythm, no murmurs Gastrointestinal: Diffusely tender to deep palpation, bowel sounds heard. Skin: No xanthomas or other skin lesions. Medications Medication Current Medications IV Flush (NS 3 ml) 3 ml PER PROTOCOL IV ; Start 06/26/18 at 20:30 Ondansetron HCl (Zofran Inj) 4 mg Q6H PRN IV NAUSEA/VOMITING; Start 06/26/18 at 20:30 Nitroglycerin (Nitroglycerin (Sl Tab) 0.4 Mg) 1 tab Q5M PRN SL .CHEST PAIN; Start 06/26/18 at 20:30 Oxycodone/ Acetaminophen (Percocet (5/ 325)) 1 tab Q6H PRN PO .PAINS 4-6 Last administered on 06/28/18at 18:31; Admin Dose 1 TAB; Start 06/26/18 at 20:30 Atorvastatin Calcium (Lipitor) 80 mg HS PO Last administered on 06/28/18at 21:27; Admin Dose 80 MG; Start 06/26/18 at 21:00 Albuterol/ Ipratropium (Duoneb) 3 ml Q4H RESP THERAPY PRN HHN SHORTNESS OF BREATH; Start 06/26/18 at 21:00 Lisinopril (Zestril) 10 mg DAILY PO Last administered on 06/29/18at 09:38; Admin Dose 10 MG; Start 06/27/18 at 09:00 Lorazepam (Ativan) 0.5 mg Q6H PRN IV anxiety; Start 06/26/18 at 21:00 Duloxetine HCl (Cymbalta) 60 mg DAILY PO Last administered on 06/29/18at 09:37; Admin Dose 60 MG; Start 06/27/18 at 09:00 Labetalol HCl (Labetalol) 10 mg Q4 PRN IV sbp >160; Start 06/26/18 at 21:00 Gemfibrozil (Lopid) 600 mg BID PO Last administered on 06/29/18at 09:36; Admin Dose 600 MG; Start 06/26/18 at 21:00 Atenolol (Tenormin) 25 mg BID PO Last administered on 06/28/18 21:28; Admin Dose 25 MG; Start 06/26/18 at 21:30 Gabapentin (Neurontin) 300 mg TID PO Last administered on 06/29/18 09:36; Admin Dose 300 MG; Start 06/27/18 at 09:00 Zolpidem Tartrate (Ambien) 10 mg HS PRN PO INSOMNIA Last administered on 06/27/18 20:32; Admin Dose 10 MG; Start 06/27/18 at 00:00 Miscellaneous Information Patients own medicat... BID@10,16 XX ; Start 06/27/18 at 10:00 Aspirin (Aspirin) 325 mg QHS PO Last administered on 06/28/18 21:27; Admin Dose 325 MG; Start 06/28/18 at 20:30 Psyllium Hydrophilic Mucilloid (Metamucil (Sugar Free)) 1 pkt QHS PO Last administered on 06/28/18 21:27; Admin Dose 1 PKT; Start 06/28/18 at 21:00 Diagnostic Test (Pha) (Accu-Chek) 1 ea 02 XX ; Start 06/29/18 at 02:00 Diagnostic Test (Pha) (Accu-Chek) 1 ea 2 HOURS AFTER MEALS XX ; Start 06/28/18 at 09:35 Insulin Glargine (Lantus) 23 units DAILY@0800 SC Last administered on 06/29/18 09:42; Admin Dose 23 UNITS; Start 06/29/18 at 08:00 Insulin Aspart (Novolog Insulin Pen) 8 unit WITH MEALS SC Last administered on 06/28/18at 18:25; Admin Dose 8 UNIT; Start 06/28/18 at 11:30 Insulin Aspart (Novolog Insulin Pen) NOVOLOG *MODERATE* ALGORITHM WITH MEALS BEDTIME SC ; Start 06/28/18 at 11:30 Fish Oil (Fish Oil) 3,000 mg BID PO Last administered on 06/28/18 21:27; Admin Dose 3,000 MG; Start 06/28/18 at 21:00 Miscellaneous Information 1 ea NOTE XX ; Start 06/28/18 at 10:00 Glucose (Glutose) 15 gm Q15M PRN PO DECREASED GLUCOSE; Start 06/28/18 at 10:00 Glucose (Glutose) 22.5 gm Q15M PRN PO DECREASED GLUCOSE; Start 06/28/18 at 10:00 Dextrose (D50w Syringe) 25 ml Q15M PRN IV DECREASED GLUCOSE; Start 06/28/18 at 10:00 Dextrose (D50w Syringe) 50 ml Q15M PRN IV DECREASED GLUCOSE; Start 06/28/18 at 10:00 Glucagon (Glucagen) 1 mg Q15M PRN IM DECREASED GLUCOSE; Start 06/28/18 at 10:00 Glucose (Glutose) 15 gm Q15M PRN BUCCAL DECREASED GLUCOSE; Start 06/28/18 at 10:00 Pantoprazole (Protonix Tab) 40 mg DAILY@06 PO ; Start 06/29/18 at 06:00 Niacin (Niacin) 500 mg QHS PO Last administered on 06/28/18at 00:17; Admin Dose 500 MG; Start 06/28/18 at 21:00 Diazepam (Valium) 5 mg OC ONCE PO ; Start 06/29/18 at 12:00; Stop 06/29/18 at 12:01 Diphenhydramine HCl (Benadryl) 50 mg OC ONCE PO ; Start 06/29/18 at 12:00; Stop 06/29/18 at 12:01 DOUGLAS BAE MD Jun 29, 2018 10:33
[2018-06-29] MEDS ORDERED: DIPHENHYDRAMINE 50 MG CAP PO ONE (12:00)
[2018-06-29] MEDS ORDERED: DIAZEPAM 5 MG TAB PO ONE (12:00)
--- NOTE | 2018-06-29 12:54 | CONS ---
Assessment/Plan Assessment/Plan Problems: (1) Hypertriglyceridemia Status: Acute Comment: He is actually moving in the correct direction his triglycerides are now below 1000. If this was the only issue at hand I would suggest discontinuation of hospitalization, and discharge with his fish oil being prescribed as Vascepa 3 pills twice daily. For now complete cardiac workup and continue with medication therapy. He is tolerating the current dosing if we believe that the nurse is having document giving the medication is accurate which I do believe (2) Type 2 diabetes mellitus without complications Status: Chronic Comment: Excellent glycemic control on a controlled regimen in a controlled environment Qualifiers: Diabetes mellitus long-term insulin use: with long-term use Qualified Codes: E11.9 - Type 2 diabetes mellitus without complications; Z79.4 - nursing home (current) use of insulin (3) Chronic recurrent pancreatitis Status: Chronic Comment: Noted and stable. On a personal note I am less thrilled with the idea of giving him GLP-1, or DPP 4 inhibitor drug (4) Chest pain Status: Acute Comment: As per cardiology Qualifiers: Chest pain type: unspecified Qualified Codes: R07.9 - Chest pain, unspecified Consultation Date/Type/Reason Admit Date/Time Jun 26, 2018 at 21:42 Initial Consult Date 06/28/18 Type of Consult Endocrinology Reason for Consultation Diabetes mellitus type II; familial hypertriglyceridemia; recurrent chronic pancreatitis; medication noncooperation Requesting Provider: TIN BAE MD Date/Time of Note DATE: 06/29/18 TIME: 12:50 24 HR Interval Summary Free Text/Dictation Patient reports that he did not receive niacin or Metamucil. Please see the nursing notes documenting his having received it. He reports he is very concerned about what is going on with his heart and he wants to go home. Detailed Summary Cardiovascular: chest pain Neurologic: no complaints Endocrine: no complaints Exam/Review of Systems Exam Vitals Vital Signs Date Temp Pulse Resp B/P (MAP) Pulse Ox O2 O2 Flow FiO2 Time Delivery Rate 06/29/18 98.2 68 18 119/62 96 07:33 (81) 06/29/18 Room Air 01:11 06/28/18 2.0 03:00 Intake and Output 06/28/18 06/28/18 06/29/18 1515:00 23:00 07:00 IntakeIntake Total 132 ml 800 ml OutputOutput Total 700 ml BalanceBalance -568 ml 800 ml Exam Angry male Head: normocephalic, atraumatic Neck: supple, non-tender Respiratory: clear to auscultation, normal air movement Cardiovascular: regular rate and rhythm, nl pulses Results Result Diagram: 06/29/184 06/29/18 0434 Results 24hrs Laboratory Tests Test 06/28/18 13:06 06/28/18 16:23 06/28/18 18:00 06/28/18 21:45 Bedside Glucose 123 120 114 124 Test 06/28/18 21:46 06/29/18 04:34 06/29/18 09:32 Bedside Glucose 115 136 White Blood Count 5.3 Red Blood Count 4.72 Hemoglobin 14.3 Hematocrit 42.9 Mean Corpuscular 90.9 Volume Mean Corpuscular 30.3 Hemoglobin Mean Corpuscular 33.3 Hemoglobin Concent Red Cell 12.6 Distribution Width Platelet Count 182 Mean Platelet Volume 10.8 H Immature 0.600 H Granulocytes % Neutrophils % 46.5 Lymphocytes % 42.0 Monocytes % 8.4 Eosinophils % 1.9 Basophils % 0.6 Nucleated Red Blood 0.0 Cells % Immature 0.030 Granulocytes # Neutrophils # 2.5 Lymphocytes # 2.2 Monocytes # 0.4 Eosinophils # 0.1 Basophils # 0.0 Nucleated Red Blood 0.0 Cells # Prothrombin Time 11.7 L Prothrombin Time 0.9 Ratio INR International 0.85 Normalized Ratio Activated 27.6 Partial Thromboplast Time Sodium Level 138 Potassium Level 4.5 Chloride Level 98 Carbon Dioxide Level 26 Anion Gap 14 H Blood Urea Nitrogen 14 Creatinine 1.11 Est Glomerular > 60 Filtrat Rate mL/min Glucose Level 122 Calcium Level 9.1 Triglycerides Level 938 H Cholesterol Level 214 H LDL Cholesterol, 3 Calculated HDL Cholesterol 23 L Cholesterol/HDL 9.3 Ratio Medications Medication Current Medications IV Flush (NS 3 ml) 3 ml PER PROTOCOL IV ; Start 06/26/18 at 20:30 Ondansetron HCl (Zofran Inj) 4 mg Q6H PRN IV NAUSEA/VOMITING; Start 06/26/18 at 20:30 Nitroglycerin (Nitroglycerin (Sl Tab) 0.4 Mg) 1 tab Q5M PRN SL .CHEST PAIN; Start 06/26/18 at 20:30 Oxycodone/ Acetaminophen (Percocet (5/ 325)) 1 tab Q6H PRN PO .PAINS 4-6 Last administered on 06/28/18 18:31; Admin Dose 1 TAB; Start 06/26/18 at 20:30 Atorvastatin Calcium (Lipitor) 80 mg HS PO Last administered on 06/28/18 21:27; Admin Dose 80 MG; Start 06/26/18 at 21:00 Albuterol/ Ipratropium (Duoneb) 3 ml Q4H RESP THERAPY PRN HHN SHORTNESS OF BREATH; Start 06/26/18 at 21:00 Lisinopril (Zestril) 10 mg DAILY PO Last administered on 06/29/18 09:38; Admin Dose 10 MG; Start 06/27/18 at 09:00 Lorazepam (Ativan) 0.5 mg Q6H PRN IV anxiety; Start 06/26/18 at 21:00 Duloxetine HCl (Cymbalta) 60 mg DAILY PO Last administered on 06/29/18 09:37; Admin Dose 60 MG; Start 06/27/18 at 09:00 Labetalol HCl (Labetalol) 10 mg Q4 PRN IV sbp >160; Start 06/26/18 at 21:00 Gemfibrozil (Lopid) 600 mg BID PO Last administered on 06/29/18 09:36; Admin Dose 600 MG; Start 06/26/18 at 21:00 Atenolol (Tenormin) 25 mg BID PO Last administered on 06/28/18 21:28; Admin Dose 25 MG; Start 06/26/18 at 21:30 Gabapentin (Neurontin) 300 mg TID PO Last administered on 06/29/18 09:36; Admin Dose 300 MG; Start 06/27/18 at 09:00 Zolpidem Tartrate (Ambien) 10 mg HS PRN PO INSOMNIA Last administered on 06/27/18 20:32; Admin Dose 10 MG; Start 06/27/18 at 00:00 Miscellaneous Information Patients own medicat... BID@10,16 XX ; Start 06/27/18 at 10:00 Aspirin (Aspirin) 325 mg QHS PO Last administered on 06/28/18 21:27; Admin Dose 325 MG; Start 06/28/18 at 20:30 Psyllium Hydrophilic Mucilloid (Metamucil (Sugar Free)) 1 pkt QHS PO Last administered on 06/28/18at 21:27; Admin Dose 1 PKT; Start 06/28/18 at 21:00 Diagnostic Test (Pha) (Accu-Chek) 1 ea 02 XX ; Start 06/29/18 at 02:00 Diagnostic Test (Pha) (Accu-Chek) 1 ea 2 HOURS AFTER MEALS XX ; Start 06/28/18 at 09:35 Insulin Glargine (Lantus) 23 units DAILY@0800 SC Last administered on 06/29/18at 09:42; Admin Dose 23 UNITS; Start 06/29/18 at 08:00 Insulin Aspart (Novolog Insulin Pen) 8 unit WITH MEALS SC Last administered on 06/28/18at 18:25; Admin Dose 8 UNIT; Start 06/28/18 at 11:30 Insulin Aspart (Novolog Insulin Pen) NOVOLOG *MODERATE* ALGORITHM WITH MEALS BEDTIME SC ; Start 06/28/18 at 11:30 Fish Oil (Fish Oil) 3,000 mg BID PO Last administered on 06/28/18at 21:27; Admin Dose 3,000 MG; Start 06/28/18 at 21:00 Miscellaneous Information 1 ea NOTE XX ; Start 06/28/18 at 10:00 Glucose (Glutose) 15 gm Q15M PRN PO DECREASED GLUCOSE; Start 06/28/18 at 10:00 Glucose (Glutose) 22.5 gm Q15M PRN PO DECREASED GLUCOSE; Start 06/28/18 at 10:00 Dextrose (D50w Syringe) 25 ml Q15M PRN IV DECREASED GLUCOSE; Start 06/28/18 at 10:00 Dextrose (D50w Syringe) 50 ml Q15M PRN IV DECREASED GLUCOSE; Start 06/28/18 at 10:00 Glucagon (Glucagen) 1 mg Q15M PRN IM DECREASED GLUCOSE; Start 06/28/18 at 10:00 Glucose (Glutose) 15 gm Q15M PRN BUCCAL DECREASED GLUCOSE; Start 06/28/18 at 10:00 Pantoprazole (Protonix Tab) 40 mg DAILY@06 PO ; Start 06/29/18 at 06:00 Niacin (Niacin) 500 mg QHS PO Last administered on 06/28/18at 00:17; Admin Dose 500 MG; Start 06/28/18 at 21:00 RICHELLE VALENCIA MD Jun 29, 2018 12:54
[2018-06-29] MEDS ORDERED: IODIXANOL LOCM 100 ML BTL ONE (13:49)
[2018-06-29] MEDS ORDERED: HEPARIN 1000 UNITS/ML 10 ML INJ ONE (13:49)
[2018-06-29] MEDS ORDERED: VERAPAMIL 5 MG INJ ONE (13:51)
[2018-06-29] MEDS ORDERED: FENTAnyl 50 MCG/ML VIAL ONE (13:51)
[2018-06-29] MEDS ORDERED: MIDAZOLAM 1 MG/ML 2 ML INJ ONE (13:51)
[2018-06-29] MEDS ORDERED: NITROGLYCERIN (IC) 100 MCG/ML INJ ONE (13:51)
--- NOTE | 2018-06-29 15:07 | SIPON ---
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
[2018-06-29] MEDS ORDERED: SOD CHLORIDE 0.9% 1,000 ML IV SCH (15:09)
[2018-06-29] MEDS ORDERED: AL HYDROX/MG HYDROX/SIMETH 30 ML CUP PO PRN (15:30)
[2018-06-29] MEDS ORDERED: ONDANSETRON 4 MG INJ IV PRN (15:30)
[2018-06-29] MEDS ORDERED: ACETAMINOPHEN 325 MG TAB PO PRN (15:30)
--- NOTE | 2018-06-29 15:55 | CARRPT ---
DATE OF PROCEDURE: 06/29/2018 TYPE OF PROCEDURES: 1. Left heart catheterization. 2. Coronary angiography. 3. Moderate conscious sedation. 4. Left ventriculogram. ATTENDING PHYSICIAN: Douglas Guajardo MD REFERRING PHYSICIAN: Douglas Manzo MD, from the hospitalist service. INDICATION: Chest pain, positive stress test for ischemia and decreased EF. BRIEF HISTORY AND HOSPITAL COURSE: Mr. Subramanian is a 53-year-old male with history of familial hypert riglyceridemia who presented with elevated triglyceride and abdominal pain. The patient did complain of chest pain, was ruled out for myocardial infarction with cardiac stress test revealing a decrease d EF of 45% with inferior ischemia. Given these findings, the patient was referred for and presents today in order to undergo for left heart catheterization to assess possibility of significant obstruc tive coronary artery lending to symptoms of chest pain and positive stress test findings. PROCEDURE IN DETAILS: After informed consent was obtained, the patient was brought to the [facility] cardiac catheterization lab, where his right groin was prepped and draped in steri le fashion. A 2% lidocaine was infiltrated into right groin in order to achieve adequate anesthesia. Using the modified Seldinger technique, the right femoral artery was cannulated and a 6-Afghan shanice rial sheath was placed. A 6-Afghan JL4 catheter was used to cannulate the left main coronary ostium. With contrast injection, multiple views of the left coronary arterial system were obtained. JL4 wa s removed over a guidewire and a JR4 was used to cannulate the right coronary arterial ostium. With contrast injection, multiple views of the right coronary system were obtained. JL4 was removed over a guidewire and a 6-Afghan pigtail was passed down the ascending aorta and placed in the LV. LVEDP w as measured. Power injector was used to opacify the ventricle and pullback across the aortic valve t o assess for significant gradient, which there was not and removed. Subsequently, this completed the procedure. The patient's sheath was removed. TR band was applied. There were no noted complicatio ns. FINDINGS: Coronary angiography: Left main is 4 mm, no significant focal stenosis. Circumflex proxi mae is a 3.5 mm vessel, has ostial 20% stenosis. Remainder of the circumflex thereafter is free of significant focal stenoses. There is a mid branching obtuse marginal 3 mm with no significant focal stenoses. The circumflex gives off a very small PDA making this a codominant vessel, 2 mm with mild luminal irregularities up to 20% and a distal branching obtuse marginal of 2.5 mm, no significant fo jones stenoses. The LAD proximally is 3.5 mm vessel and there is a diagonal that takes off proximally and has an ostial 40% stenosis. The LAD itself has no significant focal stenoses throughout its enti rety and goes around the apex. The right coronary artery proximally is a 3.5 mm vessel and has mid b jerrica 20% to 30% stenosis and was again a codominant vessel and therefore gives off a right-sided PDA, 2 mm with no significant focal stenoses and a posterolateral branch is 2 mm with no significant focal stenoses. It should be noted that the patient has a FRANKI 2 flow throughout all of his vessels with the right side being somewhat more rapid than left side. Left ventriculogram revealed a left ventricular ejection fraction of approximately 40% to 45% with mi ld anterolateral hypokinesis and apical kinesis. Left ventricular end diastolic pressure of 17 pre-L V gram and 21 post-LV gram. No significant aortic stenosis by gradient and 1+ mitral regurgitation. TOTAL FLUOROSCOPY TIME: 2.2 minutes. TOTAL CONTRAST: 70 mL. IMPRESSION: 1. Very mild nonobstructive coronary artery disease, but with reduced FRANKI 2 flow likely indicative of a microvascular dysfunction, endothelial dysfunction. 2. Mildly elevated left heart filling pressures with injection. 3. No significant aortic stenosis by gradient. 4. A 1+ mitral regurgitation. RECOMMENDATIONS: In light of procedure findings at this time, we would: 1. Maximize medical management. 2. Aggressive risk factor reduction. 3. Smoking cessation. 4. The patient will be readmitted to the telemetry floor for post-catheterization observation, tiny nued management of his presenting symptoms. Dictated By: DOUGLAS WARREN/BLESSING Conf#: [id number] DID#: [id number] CC: SUGAR GILES MD; DOUGLAS MANZO MD; ARAVIND EDEN MD;*EndCC*
[2018-06-29] MEDS: OXYCODONE/ACETAMINOPHEN (5/325) TAB PO PRN (16:54)
[2018-06-29] MEDS: ASPIRIN 325 MG TAB PO SCH (21:11)
[2018-06-29] MEDS: NIACIN 500 MG TAB PO SCH (21:38)
[2018-06-29] MEDS: ATORVASTATIN 80 MG TAB PO SCH (21:38)
[2018-06-29] MEDS: PSYLLIUM (SUGAR FREE) PACKET PO SCH (21:39)
[2018-06-30] VITALS (8 sets, daily range): BP systolic 96–125; BP diastolic 52–71; PULSE 35–87; RESP 17–20
[2018-06-30] MEDS: ACCU-CHEK XX SCH ×3 (02:00→14:09)
[2018-06-30] MEDS: PANTOPRAZOLE (EC) 40 MG TAB PO SCH (05:59)
[2018-06-30] MEDS: INSULIN ASPART [NOVOLOG] 3 ML PEN SC SCH ×4 (07:53→12:24)
[2018-06-30] MEDS: DULOXETINE 30 MG CAP DR PO SCH (08:12)
[2018-06-30] MEDS: GEMFIBROZIL 600 MG TAB PO SCH (08:12)
[2018-06-30] MEDS: FISH OIL 1,000 MG CAP PO SCH (08:12)
[2018-06-30] MEDS: ATENOLOL 25 MG TAB PO SCH (08:13)
[2018-06-30] MEDS: LISINOPRIL 10 MG TAB PO SCH (08:13)
[2018-06-30] MEDS: GABAPENTIN 300 MG CAP PO SCH ×2 (08:13→12:26)
--- NOTE | 2018-06-30 08:36 | CONS ---
Assessment/Plan Assessment/Plan Hospital Course (Demo Recall) #Hypertriglyceridemia -patient's TGA were greater than 3000 when check on 06/21/18 -with the insulin gtt and niacin they have come down to <1000 -furthermore there is no evidence of acute pancreatitis given the normal lipase -I agree with his out patient knuckler that we should hold on plasma exchange only unless it is an emergency -given the TGA's have come down with insulin, we will not perform plasma exchange at this time -continue management per endocrinology #DM -continue insulin per PMD #HTN -continue Atenolol, and lisinopril Thank you for the opportunity to participate in this patients care A total of 40 minutes of face to face time was spent speaking with the patient, of which greater than 50% was spent in counseling and coordination of care and the detailed question and answer session Consultation Date/Type/Reason Admit Date/Time Jun 26, 2018 at 21:42 Initial Consult Date 06/28/18 Type of Consult oncology Reason for Consultation hypertriglyceridemia Requesting Provider: TIN BAE MD Date/Time of Note DATE: 06/30/18 TIME: 08:34 24 HR Interval Summary Free Text/Dictation TGA continue to decline on insulin and niacin. Exam/Review of Systems Exam Vitals Vital Signs Date Temp Pulse Resp B/P (MAP) Pulse Ox O2 O2 Flow FiO2 Time Delivery Rate 06/30/18 98.1 68 18 101/71 95 07:30 (81) 06/29/18 Room Air 19:16 06/28/18 2.0 03:00 Intake and Output 06/29/18 06/29/18 06/30/18 1515:00 23:00 07:00 IntakeIntake Total 705 ml 850 ml BalanceBalance 705 ml 850 ml Constitutional: alert, oriented Psych: no complaints Head: normocephalic Eyes: nl conjunctiva ENMT: nl external ears & nose Neck: supple Respiratory: clear to auscultation Cardiovascular: regular rate and rhythm Gastrointestinal: soft Musculoskeletal: nl extremities to inspection Results Result Diagram: 06/29/18 0434 06/29/18 0434 Results 24hrs Laboratory Tests Test 06/29/18 09:32 06/29/18 13:05 06/29/18 16:46 06/29/18 19:46 Bedside Glucose 136 114 108 108 Test 06/29/18 21:41 06/30/18 07:50 Bedside Glucose 134 159 Medications Medication Current Medications IV Flush (NS 3 ml) 3 ml PER PROTOCOL IV ; Start 06/26/18 at 20:30 Ondansetron HCl (Zofran Inj) 4 mg Q6H PRN IV NAUSEA/VOMITING; Start 06/26/18 at 20:30 Nitroglycerin (Nitroglycerin (Sl Tab) 0.4 Mg) 1 tab Q5M PRN SL .CHEST PAIN; Start 06/26/18 at 20:30 Oxycodone/ Acetaminophen (Percocet (5/ 325)) 1 tab Q6H PRN PO .PAINS 4-6 Last administered on 06/29/18at 16:54; Admin Dose 1 TAB; Start 06/26/18 at 20:30 Atorvastatin Calcium (Lipitor) 80 mg HS PO Last administered on 06/29/18at 21:38; Admin Dose 80 MG; Start 06/26/18 at 21:00 Albuterol/ Ipratropium (Duoneb) 3 ml Q4H RESP THERAPY PRN HHN SHORTNESS OF BREATH; Start 06/26/18 at 21:00 Lisinopril (Zestril) 10 mg DAILY PO Last administered on 06/30/18at 08:13; Admin Dose 10 MG; Start 06/27/18 at 09:00 Lorazepam (Ativan) 0.5 mg Q6H PRN IV anxiety Last administered on 06/29/18at 23:15; Admin Dose 0.5 MG; Start 06/26/18 at 21:00 Duloxetine HCl (Cymbalta) 60 mg DAILY PO Last administered on 06/30/18at 08:12; Admin Dose 60 MG; Start 06/27/18 at 09:00 Labetalol HCl (Labetalol) 10 mg Q4 PRN IV sbp >160; Start 06/26/18 at 21:00 Gemfibrozil (Lopid) 600 mg BID PO Last administered on 06/30/18at 08:12; Admin Dose 600 MG; Start 06/26/18 at 21:00 Atenolol (Tenormin) 25 mg BID PO Last administered on 06/30/18at 08:13; Admin Dose 25 MG; Start 06/26/18 at 21:30 Gabapentin (Neurontin) 300 mg TID PO Last administered on 06/30/18 08:13; Admi n Dose 300 MG; Start 06/27/18 at 09:00 Zolpidem Tartrate (Ambien) 10 mg HS PRN PO INSOMNIA Last administered on 06/27/18 20:32; Admin Dose 10 MG; Start 06/27/18 at 00:00 Miscellaneous Information Patients own medicat... BID@10,16 XX ; Start 06/27/18 at 10:00 Aspirin (Aspirin) 325 mg QHS PO Last administered on 06/29/18 21:11; Admin Dose 325 MG; Start 06/28/18 at 20:30 Psyllium Hydrophilic Mucilloid (Metamucil (Sugar Free)) 1 pkt QHS PO Last administered on 06/29/18 21:39; Admin Dose 1 PKT; Start 06/28/18 at 21:00 Diagnostic Test (Pha) (Accu-Chek) 1 ea 02 XX ; Start 06/29/18 at 02:00 Diagnostic Test (Pha) (Accu-Chek) 1 ea 2 HOURS AFTER MEALS XX Last administered on 06/29/18 20:20; Admin Dose 1 EA; Start 06/28/18 at 09:35 Insulin Glargine (Lantus) 23 units DAILY@0800 SC Last administered on 06/29/18 09:42; Admin Dose 23 UNITS; Start 06/29/18 at 08:00 Insulin Aspart (Novolog Insulin Pen) 8 unit WITH MEALS SC Last administered on 06/30/18 07:53; Admin Dose 8 UNIT; Start 06/28/18 at 11:30 Insulin Aspart (Novolog Insulin Pen) NOVOLOG *MODERATE* ALGORITHM WITH MEALS BEDTIME SC Last administered on 06/30/18 07:53; Admin Dose 2 UNIT; Start 06/28/18 at 11:30 Fish Oil (Fish Oil) 3,000 mg BID PO Last administered on 06/30/18 08:12; Admin Dose 3,000 MG; Start 06/28/18 at 21:00 Miscellaneous Information 1 ea NOTE XX ; Start 06/28/18 at 10:00 Glucose (Glutose) 15 gm Q15M PRN PO DECREASED GLUCOSE; Start 06/28/18 at 10:00 Glucose (Glutose) 22.5 gm Q15M PRN PO DECREASED GLUCOSE; Start 06/28/18 at 10:00 Dextrose (D50w Syringe) 25 ml Q15M PRN IV DECREASED GLUCOSE; Start 06/28/18 at 10:00 Dextrose (D50w Syringe) 50 ml Q15M PRN IV DECREASED GLUCOSE; Start 06/28/18 at 10:00 Glucagon (Glucagen) 1 mg Q15M PRN IM DECREASED GLUCOSE; Start 06/28/18 at 10:00 Glucose (Glutose) 15 gm Q15M PRN BUCCAL DECREASED GLUCOSE; Start 06/28/18 at 10:00 Pantoprazole (Protonix Tab) 40 mg DAILY@06 PO Last administered on 06/30/18at 05:59; Admin Dose 40 MG; Start 06/29/18 at 06:00 Niacin (Niacin) 500 mg QHS PO Last administered on 06/29/18at 21:38; Admin Dose 500 MG; Start 06/28/18 at 21:00 Acetaminophen (Tylenol Tab) 650 mg Q4H PRN PO NON-CARDIAC PAIN LEVEL (1-3); Start 06/29/18 at 15:30 Al Hydrox/Mg Hydrox/Simethicone (Mag-Al Plus) 30 ml Q4H PRN PO GASTROINTESTINAL UPSET; Start 06/29/18 at 15:30 Ondansetron HCl (Zofran Inj) 4 mg Q4H PRN IV NAUSEA AND/OR VOMITING; Start 06/11 01/27 at 15:30 Miscellaneous Information Patients own medicat... BID@10,16 XX ; Start 06/30/18 at 10:00 ARAVIND EDEN M.D. Jun 30, 2018 08:36
[2018-06-30] MEDS: INSULIN GLARGINE [LANTus] (100 UNITS/ML) SYG SC SCH (10:00)
[2018-06-30] MEDS ORDERED: NIAC500T81 PO (11:55)
[2018-06-30] MEDS ORDERED: ATEN-51 PO (11:55)
[2018-06-30] MEDS ORDERED: METF-849 PO (11:55)
[2018-06-30] MEDS ORDERED: INSU100I33 SC (11:55)
[2018-06-30] MEDS ORDERED: OMEG-157 PO (11:55)
[2018-06-30] MEDS ORDERED: NOVO3I SC (11:55)
[2018-06-30] MEDS ORDERED: GABA400C14 PO (11:55)
[2018-06-30] MEDS ORDERED: GEMF600T8 PO (11:55)
[2018-06-30] MEDS ORDERED: ICOS1CAP PO (11:55)
[2018-06-30] MEDS ORDERED: DULO30CA45 PO (11:55)
[2018-06-30] MEDS ORDERED: LISI10TA2 PO (11:55)
[2018-06-30] MEDS ORDERED: ATOR-2 PO (11:55)
[2018-06-30] MEDS ORDERED: ALBU90AE INHALATION (11:55)
[2018-06-30] MEDS ORDERED: ASPI-903 PO (11:56)
--- NOTE | 2018-06-30 11:59 | PDOCDIS ---
Discharge Instructions DIAGNOSIS Discharge Diagnosis Hypertriglyceridemia Angina Nonobstructive coronary artery disease CONDITION [id number] Patient Condition: Twgin3a Good HOME CARE INSTRUCTIONS: [id number] Diet Instructions: [id number] Low Fat /Cholesterol ACTIVITY: [id number] Activity Restrictions: [id number] No Restrictions FOLLOW UP/APPOINTMENTS Follow-up Plan 1. Take all medications as prescribed. 2. See Dr. Pate at [facility] as scheduled. 3. Return to the emergency department for worsening chest pain unrelieved by rest. REFERRALS Other Referrals DATE OF PROCEDURE: 06/29/2018 TYPE OF PROCEDURES: 1. Left heart catheterization. 2. Coronary angiography. 3. Moderate conscious sedation. 4. Left ventriculogram. ATTENDING PHYSICIAN: Douglas Guajardo MD REFERRING PHYSICIAN: Douglas Manzo MD, from the hospitalist service. INDICATION: Chest pain, positive stress test for ischemia and decreased EF. BRIEF HISTORY AND HOSPITAL COURSE: Mr. Subramanian is a 53-year-old male with history of familial hypertriglyceridemia who presented with elevated triglyceride and abdominal pain. The patient did complain of chest pain, was ruled out for myocardial infarction with cardiac stress test revealing a decreased EF of 45% with inferior ischemia. Given these findings, the patient was referred for and presents today in order to undergo for left heart constantine terization to assess possibility of significant obstructive coronary artery lending to symptoms of chest pain and positive stress test findings. PROCEDURE IN DETAILS: After informed consent was obtained, the patient was brought to the [facility] cardiac catheterization lab, where his right groin was prepped and draped in sterile fashion. A 2% lidocaine was infiltrated into right groin in order to achieve adequate anesthesia. Using the modified Seldinger technique, the right femoral artery was cannulated and a 6- Qatari arterial sheath was placed. A 6-Qatari JL4 catheter was used to cannulate the left main coronary ostium. With contrast injection, multiple views of the left coronary arterial system were obtained. JL4 was removed over a guidewire and a JR4 was used to cannulate the right coronary arterial ostium. With contrast injection, multiple views of the right coronary system were obtained. JL4 was removed over a guidewire and a 6-Qatari pigtail was passed down the ascending aorta and placed in the LV. LVEDP was measured. Power injector was used to opacify the ventricle and pullback across the aortic valve to assess for significant gradient, which there was not and removed. Subsequently, this completed the procedure. The patient's sheath was removed. TR band was applied. There were no noted complications. FINDINGS: Coronary angiography: Left main is 4 mm, no significant focal stenosis. Circumflex proximally is a 3.5 mm vessel, has ostial 20% stenosis. Remainder of the circumflex thereafter is free of significant focal stenoses. There is a mid branching obtuse marginal 3 mm with no significant focal stenoses. The circumflex gives off a very small PDA making this a codominant vessel, 2 mm with mild luminal irregularities up to 20% and a distal branching obtuse marginal of 2.5 mm, no significant focal stenoses. The LAD proximally is 3.5 mm vessel and there is a diagonal that takes off proximally and has an ostial 40% stenosis. The LAD itself has no significant focal stenoses throughout its entirety and goes around the apex. The right coronary artery proximally is a 3.5 mm vessel and has mid body 20% to 30% stenosis and was again a codominant vessel and therefore gives off a right-sided PDA, 2 mm with no significant focal stenoses and a posterolateral branch is 2 mm with no significant focal stenoses. It should be noted that the patient has a FRANKI 2 flow throughout all of his vessels with the right side being somewhat more rapid than left side. Left ventriculogram revealed a left ventricular ejection fraction of approximately 40% to 45% with mild anterolateral hypokinesis and apical kinesis. Left ventricular end diastolic pressure of 17 pre-LV gram and 21 post-LV gram. No significant aortic stenosis by gradient and 1+ mitral regurgitation. TOTAL FLUOROSCOPY TIME: 2.2 minutes. TOTAL CONTRAST: 70 mL. IMPRESSION: 1. Very mild nonobstructive coronary artery disease, but with reduced FRANKI 2 flow likely indicative of a microvascular dysfunction, endothelial dysfunction. 2. Mildly elevated left heart filling pressures with injection. 3. No significant aortic stenosis by gradient. 4. A 1+ mitral regurgitation. RECOMMENDATIONS: In light of procedure findings at this time, we would: 1. Maximize medical management. 2. Aggressive risk factor reduction. 3. Smoking cessation. 4. The patient will be readmitted to the telemetry floor for post- catheterization observation, continued management of his presenting symptoms. Dictated By: DOUGLAS FUCHS MD, MD Jun 30, 2018 11:59
--- NOTE | 2018-06-30 12:54 | CONS ---
Assessment/Plan Assessment/Plan Hospital Course (Demo Recall) IMPRESSION: 1. Chest pain, assess for acute coronary syndrome with negative troponins x3. The patient has diabetes and familial hypertriglyceridemia.. abnl MPI- + ischemia inferior EF 45% NOw s/p LHC with no sig obstructive cad and EF 40-45% 2. Familial hypertriglyceridemia on multiple medications including statin and fish oil, fibrates, niacin with no need for plasmapheresis this time for hematology/oncology. 3. Epigastric pain and history of pancreatitis. 4. Upper extremity numbness. 5. Diabetes mellitus. 6. Hypertension. 7. Substance abuse. Recc: -Tele -Continue fish oil/niacin/statin/fibrates -would consider low dose CCB for microvascular disease as tolerated -Continue low dose BB as tolerated Consultation Date/Type/Reason Admit Date/Time Jun 26, 2018 at 21:42 Initial Consult Date 06/28/18 Type of Consult Cardiology Reason for Consultation chest pain Requesting Provider: TIN BAE MD Date/Time of Note DATE: 06/30/18 TIME: 12:51 Exam/Review of Systems Vital Signs Vitals Vital Signs Date Temp Pulse Resp B/P (MAP) Pulse Ox O2 O2 Flow FiO2 Time Delivery Rate 06/30/18 98.3 87 20 125/67 96 Room Air 11:52 (86) 06/28/18 2.0 03:00 Intake and Output 06/29/18 06/29/18 06/30/18 1414:59 22:59 06:59 IntakeIntake Total 705 ml 850 ml BalanceBalance 705 ml 850 ml Exam Exam Review of Systems: CONSTITUTIONAL: No fevers, chills. PULMONARY: No sob CARDIOVASCULAR: No chest pain/palpitations GASTROINTESTINAL: No nausea/vomiting. GENITOURINARY: No hematuria/dysuria. MUSCULOSKELETAL: No myagias/arthalgias. PSYCHIATRIC: The patient denies depression. NEUROLOGIC: No weakness Constitutional: other (sleeping, arousable) Psych: no complaints Head: normocephalic ENMT: mucosa pink and moist Neck: supple, jvd (8 cm water) Respiratory: clear to auscultation Cardiovascular: regular rate and rhythm Gastrointestinal: soft, non-tender Musculoskeletal: muscle tone (normal) Extremities: edema (none) Neurological: other (No focal deficits) Labs Result Diagram: 06/30/18 1019 06/30/18 1019 Results 24hrs Laboratory Tests Test 06/29/18 13:05 06/29/18 16:46 06/29/18 19:46 06/29/18 21:41 Bedside Glucose 114 108 108 134 Test 06/30/18 07:50 06/30/18 09:57 06/30/18 10:19 06/30/18 12:22 Bedside Glucose 159 171 170 White Blood Count 5.1 Red Blood Count 4.73 Hemoglobin 14.2 Hematocrit 42.6 Mean Corpuscular 90.1 Volume Mean Corpuscular 30.0 Hemoglobin Mean Corpuscular 33.3 Hemoglobin Concent Red Cell 12.6 Distribution Width Platelet Count 197 Mean Platelet Volume 10.8 H Immature 0.800 H Granulocytes % Neutrophils % 45.3 Lymphocytes % 42.9 Monocytes % 9.2 Eosinophils % 1.4 Basophils % 0.4 Nucleated Red Blood 0.0 Cells % Immature 0.040 H Granulocytes # Neutrophils # 2.3 Lymphocytes # 2.2 Monocytes # 0.5 Eosinophils # 0.1 Basophils # 0.0 Nucleated Red Blood 0.0 Cells # Sodium Level 138 Potassium Level 4.1 Chloride Level 101 Carbon Dioxide Level 29 Anion Gap 8 Blood Urea Nitrogen 17 Creatinine 1.01 Est Glomerular > 60 Filtrat Rate mL/min Glucose Level 175 Calcium Level 9.3 Phosphorus Level 3.8 Magnesium Level 1.8 Total Bilirubin 0.2 Direct Bilirubin 0.00 Indirect Bilirubin 0.2 Aspartate Amino 21 Transf (AST/SGOT) Alanine 13 Aminotransferase (AL T/SGPT) Alkaline Phosphatase 67 Total Protein 6.9 Albumin 4.1 Globulin 2.80 Albumin/Globulin 1.46 Ratio Triglycerides Level 622 H Medications Medications Current Medications IV Flush (NS 3 ml) 3 ml PER PROTOCOL IV ; Start 06/26/18 at 20:30 Ondansetron HCl (Zofran Inj) 4 mg Q6H PRN IV NAUSEA/VOMITING; Start 06/26/18 at 20:30 Nitroglycerin (Nitroglycerin (Sl Tab) 0.4 Mg) 1 tab Q5M PRN SL .CHEST PAIN; Start 06/26/18 at 20:30 Oxycodone/ Acetaminophen (Percocet (5/ 325)) 1 tab Q6H PRN PO .PAINS 4-6 Last administered on 06/29/18at 16:54; Admin Dose 1 TAB; Start 06/26/18 at 20:30 Atorvastatin Calcium (Lipitor) 80 mg HS PO Last administered on 06/29/18at 21:38; Admin Dose 80 MG; Start 06/26/18 at 21:00 Albuterol/ Ipratropium (Duoneb) 3 ml Q4H RESP THERAPY PRN HHN SHORTNESS OF BREATH; Start 06/26/18 at 21:00 Lisinopril (Zestril) 10 mg DAILY PO Last administered on 06/30/18at 08:13; Admin Dose 10 MG; Start 06/27/18 at 09:00 Lorazepam (Ativan) 0.5 mg Q6H PRN IV anxiety Last administered on 06/29/18 23:15; Admin Dose 0.5 MG; Start 06/26/18 at 21:00 Duloxetine HCl (Cymbalta) 60 mg DAILY PO Last administered on 06/30/18at 08:12; Admin Dose 60 MG; Start 06/27/18 at 09:00 Labetalol HCl (Labetalol) 10 mg Q4 PRN IV sbp >160; Start 06/26/18 at 21:00 Gemfibrozil (Lopid) 600 mg BID PO Last administered on 06/30/18 08:12; Admin Dose 600 MG; Start 06/26/18 at 21:00 Atenolol (Tenormin) 25 mg BID PO Last administered on 06/30/18at 08:13; Admin Dose 25 MG; Start 06/26/18 at 21:30 Gabapentin (Neurontin) 300 mg TID PO Last administered on 06/30/18at 12:26; Admin Dose 300 MG; Start 06/27/18 at 09:00 Zolpidem Tartrate (Ambien) 10 mg HS PRN PO INSOMNIA Last administered on 06/27/18 20:32; Admin Dose 10 MG; Start 06/27/18 at 00:00 Miscellaneous Information Patients own medicat... BID@, XX ; Start 06/27/18 at 10:00 Aspirin (Aspirin) 325 mg QHS PO Last administered on 06/29/18 21:11; Admin Dose 325 MG; Start 06/28/18 at 20:30 Psyllium Hydrophilic Mucilloid (Metamucil (Sugar Free)) 1 pkt QHS PO Last administered on 06/29/18 21:39; Admin Dose 1 PKT; Start 06/28/18 at 21:00 Diagnostic Test (Pha) (Accu-Chek) 1 ea 02 XX ; Start 06/29/18 at 02:00 Diagnostic Test (Pha) (Accu-Chek) 1 ea 2 HOURS AFTER MEALS XX Last administered on 06/30/18 09:58; Admin Dose 1 EA; Start 06/28/18 at 09:35 Insulin Glargine (Lantus) 23 units DAILY@0800 SC Last administered on 06/30/18 10:00; Admin Dose 23 UNITS; Start 06/29/18 at 08:00 Insulin Aspart (Novolog Insulin Pen) 8 unit WITH MEALS SC Last administered on 06/30/18 12:24; Admin Dose 8 UNIT; Start 06/28/18 at 11:30 Insulin Aspart (Novolog Insulin Pen) NOVOLOG *MODERATE* ALGORITHM WITH MEALS BEDTIME SC Last administered on 06/30/18 12:24; Admin Dose 2 UNIT; Start 06/28/18 at 11:30 Fish Oil (Fish Oil) 3,000 mg BID PO Last administered on 06/30/18 08:12; Admin Dose 3,000 MG; Start 06/28/18 at 21:00 Miscellaneous Information 1 ea NOTE XX ; Start 06/28/18 at 10:00 Glucose (Glutose) 15 gm Q15M PRN PO DECREASED GLUCOSE; Start 06/28/18 at 10:00 Glucose (Glutose) 22.5 gm Q15M PRN PO DECREASED GLUCOSE; Start 06/28/18 at 10:00 Dextrose (D50w Syringe) 25 ml Q15M PRN IV DECREASED GLUCOSE; Start 06/28/18 at 10:00 Dextrose (D50w Syringe) 50 ml Q15M PRN IV DECREASED GLUCOSE; Start 06/28/18 at 10:00 Glucagon (Glucagen) 1 mg Q15M PRN IM DECREASED GLUCOSE; Start 06/28/18 at 10:00 Glucose (Glutose) 15 gm Q15M PRN BUCCAL DECREASED GLUCOSE; Start 06/28/18 at 10:00 Pantoprazole (Protonix Tab) 40 mg DAILY@06 PO Last administered on 06/30/18 05:59; Admin Dose 40 MG; Start 2/19/19 at 06:00 Niacin (Niacin) 500 mg QHS PO Last administered on 06/29/18at 21:38; Admin Dose 500 MG; Start 06/28/18 at 21:00 Acetaminophen (Tylenol Tab) 650 mg Q4H PRN PO NON-CARDIAC PAIN LEVEL (1-3); Start 06/29/18 at 15:30 Al Hydrox/Mg Hydrox/Simethicone (Mag-Al Plus) 30 ml Q4H PRN PO GASTROINTESTINAL UPSET; Start 06/29/18 at 15:30 Ondansetron HCl (Zofran Inj) 4 mg Q4H PRN IV NAUSEA AND/OR VOMITING; Start 06/29/18 at 15:30 Miscellaneous Information Patients own medicat... BID@ XX ; Start 06/30/18 at 10:00 DOUGLAS CRAMER Jun 30, 2018 12:54
--- NOTE | 2018-06-30 13:58 | CONS ---
Assessment/Plan Assessment/Plan Problems: (1) Type 2 diabetes mellitus without complications Status: Chronic Comment: Excellent control with the current regimen. Please note were going with this regimen as this is also going to help lower his triglyceride levels. Qualifiers: Diabetes mellitus penitentiary insulin use: with meterman use Qualified Codes: E11.9 - Type 2 diabetes mellitus without complications; Z79.4 - local intermodal truck driver (current) use of insulin (2) Hypertriglyceridemia Status: Acute Comment: This is improved nicely and he is tolerating niacin. This should therefore make his compliance significantly easier as the primary issues he had complaints about have been dealt with and resolved. Should go out on the niacin with Metamucil at bedtime far after aspirin, and using Vascepa 3 g twice daily. This would be in addition to the gemfibrozil and the statin drugs (3) Neuropathy in diabetes Status: Chronic Comment: Noted and stable Qualifiers: Diabetes mellitus type: type 2 Diabetes mellitus complication detail: diabetic mononeuropathy Qualified Codes: E11.41 - Type 2 diabetes mellitus with diabetic mononeuropathy (4) Chronic recurrent pancreatitis Status: Chronic Comment: Quiescent at this time Consultation Date/Type/Reason Admit Date/Time Jun 26, 2018 at 21:42 Initial Consult Date 06/28/18 Type of Consult Endocrinology Reason for Consultation Diabetes mellitus type 2; severe hypertriglyceridemia-familial; diabetic peripheral neuropathy; chronic recurrent pancreatitis; nonobstructive coronary artery disease Requesting Provider: TIN BAE MD Date/Time of Note DATE: 06/30/18 TIME: 13:55 24 HR Interval Summary Free Text/Dictation Patient reports he has a question about wanting to be able to be physically active but his back occasionally hurts if he does that and wants to know how to be referred for outpatient physical therapy per Constitutional: no complaints Detailed Summary Endocrine: no complaints Exam/Review of Systems Exam Vitals Vital Signs Date Temp Pulse Resp B/P (MAP) Pulse Ox O2 O2 Flow FiO2 Time Delivery Rate 06/30/18 64 13:27 06/30/18 98.3 20 125/67 96 Room Air 11:52 (86) 06/28/18 2.0 03:00 Intake and Output 06/29/18 06/29/18 06/30/18 1515:00 23:00 07:00 IntakeIntake Total 705 ml 850 ml BalanceBalance 705 ml 850 ml Exam male with certain degree of anger but otherwise no acute distress Constitutional: alert, oriented Respiratory: clear to auscultation, normal air movement Cardiovascular: regular rate and rhythm Results Result Diagram: 06/30/18 1019 06/30/18 1019 Results 24hrs Laboratory Tests Test 06/29/18 16:46 06/29/18 19:46 06/29/18 21:41 06/30/18 07:50 Bedside Glucose 108 108 134 159 Test 06/30/18 09:57 06/30/18 10:19 06/30/18 12:22 Bedside Glucose 171 170 White Blood Count 5.1 Red Blood Count 4.73 Hemoglobin 14.2 Hematocrit 42.6 Mean Corpuscular 90.1 Volume Mean Corpuscular 30.0 Hemoglobin Mean Corpuscular 33.3 Hemoglobin Concent Red Cell 12.6 Distribution Width Platelet Count 197 Mean Platelet Volume 10.8 H Immature 0.800 H Granulocytes % Neutrophils % 45.3 Lymphocytes % 42.9 Monocytes % 9.2 Eosinophils % 1.4 Basophils % 0.4 Nucleated Red Blood 0.0 Cells % Immature 0.040 H Granulocytes # Neutrophils # 2.3 Lymphocytes # 2.2 Monocytes # 0.5 Eosinophils # 0.1 Basophils # 0.0 Nucleated Red Blood 0.0 Cells # Sodium Level 138 Potassium Level 4.1 Chloride Level 101 Carbon Dioxide Level 29 Anion Gap 8 Blood Urea Nitrogen 17 Creatinine 1.01 Est Glomerular > 60 Filtrat Rate mL/min Glucose Level 175 Calcium Level 9.3 Phosphorus Level 3.8 Magnesium Level 1.8 Total Bilirubin 0.2 Direct Bilirubin 0.00 Indirect Bilirubin 0.2 Aspartate Amino 21 Transf (AST/SGOT) Alanine 13 Aminotransferase (AL T/SGPT) Alkaline Phosphatase 67 Total Protein 6.9 Albumin 4.1 Globulin 2.80 Albumin/Globulin 1.46 Ratio Triglycerides Level 622 H Medications Medication Current Medications IV Flush (NS 3 ml) 3 ml PER PROTOCOL IV ; Start 06/26/18 at 20:30 Ondansetron HCl (Zofran Inj) 4 mg Q6H PRN IV NAUSEA/VOMITING; Start 06/26/18 at 20:30 Nitroglycerin (Nitroglycerin (Sl Tab) 0.4 Mg) 1 tab Q5M PRN SL .CHEST PAIN; Start 06/26/18 at 20:30 Oxycodone/ Acetaminophen (Percocet (5/ 325)) 1 tab Q6H PRN PO .PAINS 4-6 Last administered on 06/29/18 16:54; Admin Dose 1 TAB; Start 06/26/18 at 20:30 Atorvastatin Calcium (Lipitor) 80 mg HS PO Last administered on 06/29/18 21:38; Admin Dose 80 MG; Start 06/26/18 at 21:00 Albuterol/ Ipratropium (Duoneb) 3 ml Q4H RESP THERAPY PRN HHN SHORTNESS OF BREATH; Start 06/26/18 at 21:00 Lisinopril (Zestril) 10 mg DAILY PO Last administered on 06/30/18 08:13; Admin Dose 10 MG; Start 06/27/18 at 09:00 Lorazepam (Ativan) 0.5 mg Q6H PRN IV anxiety Last administered on 06/29/18 23:15; Admin Dose 0.5 MG; Start 06/26/18 at 21:00 Duloxetine HCl (Cymbalta) 60 mg DAILY PO Last administered on 06/30/18 08:12; Admin Dose 60 MG; Start 06/27/18 at 09:00 Labetalol HCl (Labetalol) 10 mg Q4 PRN IV sbp >160; Start 06/26/18 at 21:00 Gemfibrozil (Lopid) 600 mg BID PO Last administered on 06/30/18 08:12; Admin Dose 600 MG; Start 06/26/18 at 21:00 Atenolol (Tenormin) 25 mg BID PO Last administered on 06/30/18 08:13; Admin Dose 25 MG; Start 06/26/18 at 21:30 Gabapentin (Neurontin) 300 mg TID PO Last administered on 06/30/18 12:26; Admin Dose 300 MG; Start 06/27/18 at 09:00 Zolpidem Tartrate (Ambien) 10 mg HS PRN PO INSOMNIA Last administered on 06/27/18 20:32; Admin Dose 10 MG; Start 06/27/18 at 00:00 Miscellaneous Information Patients own medicat... BID@10,16 XX ; Start 06/27/18 at 10:00 Aspirin (Aspirin) 325 mg QHS PO Last administered on 2/19/19at 21:11; Admin Dose 325 MG; Start 06/28/18 at 20:30 Psyllium Hydrophilic Mucilloid (Metamucil (Sugar Free)) 1 pkt QHS PO Last administered on 06/29/18 21:39; Admin Dose 1 PKT; Start 06/28/18 at 21:00 Diagnostic Test (Pha) (Accu-Chek) 1 ea 02 XX ; Start 06/29/18 at 02:00 Diagnostic Test (Pha) (Accu-Chek) 1 ea 2 HOURS AFTER MEALS XX Last administered on 06/30/18 09:58; Admin Dose 1 EA; Start 06/28/18 at 09:35 Insulin Glargine (Lantus) 23 units DAILY@0800 SC Last administered on 06/30/18 10:00; Admin Dose 23 UNITS; Start 06/29/18 at 08:00 Insulin Aspart (Novolog Insulin Pen) 8 unit WITH MEALS SC Last administered on 06/30/18 12:24; Admin Dose 8 UNIT; Start 06/28/18 at 11:30 Insulin Aspart (Novolog Insulin Pen) NOVOLOG *MODERATE* ALGORITHM WITH MEALS BEDTIME SC Last administered on 06/30/18 12:24; Admin Dose 2 UNIT; Start 06/28/18 at 11:30 Fish Oil (Fish Oil) 3,000 mg BID PO Last administered on 06/30/18 08:12; Admin Dose 3,000 MG; Start 06/28/18 at 21:00 Miscellaneous Information 1 ea NOTE XX ; Start 06/28/18 at 10:00 Glucose (Glutose) 15 gm Q15M PRN PO DECREASED GLUCOSE; Start 06/28/18 at 10:00 Glucose (Glutose) 22.5 gm Q15M PRN PO DECREASED GLUCOSE; Start 06/28/18 at 10:00 Dextrose (D50w Syringe) 25 ml Q15M PRN IV DECREASED GLUCOSE; Start 06/28/18 at 10:00 Dextrose (D50w Syringe) 50 ml Q15M PRN IV DECREASED GLUCOSE; Start 06/28/18 at 10:00 Glucagon (Glucagen) 1 mg Q15M PRN IM DECREASED GLUCOSE; Start 06/28/18 at 10:00 Glucose (Glutose) 15 gm Q15M PRN BUCCAL DECREASED GLUCOSE; Start 06/28/18 at 10:00 Pantoprazole (Protonix Tab) 40 mg DAILY@06 PO Last administered on 06/30/18at 05:59; Admin Dose 40 MG; Start 06/29/18 at 06:00 Niacin (Niacin) 500 mg QHS PO Last administered on 06/29/18at 21:38; Admin Dose 500 MG; Start 06/28/18 at 21:00 Acetaminophen (Tylenol Tab) 650 mg Q4H PRN PO NON-CARDIAC PAIN LEVEL (1-3); Start 06/29/18 at 15:30 Al Hydrox/Mg Hydrox/Simethicone (Mag-Al Plus) 30 ml Q4H PRN PO GASTROINTESTINAL UPSET; Start 06/29/18 at 15:30 Ondansetron HCl (Zofran Inj) 4 mg Q4H PRN IV NAUSEA AND/OR VOMITING; Start 06/29/18 at 15:30 Miscellaneous Information Patients own medicat... BID@10,16 XX ; Start 06/30/18 at 10:00 Amlodipine Besylate (Norvasc) 2.5 mg DAILY PO ; Start 07/01/18 at 09:00 RICHELLE VALENCIA MD Jun 30, 2018 13:58
--- NOTE | 2018-06-30 17:28 | DS ---
Date/Time of Note Date/Time of Note DATE: 06/30/18 TIME: 17:24 Discharge Summary Admission/Discharge Info Admit Date/Time Jun 26, 2018 at 21:42 Discharge Date/Time Jun 30, 2018 at 16:35 Discharge Diagnosis Hypertriglyceridemia Angina Nonobstructive coronary artery disease Patient Condition: Good Consults Dr. Guajardo, cardiology Dr. Morejon, endocrine Dr. Clark, hematology Procedures TYPE OF PROCEDURES: 1. Left heart catheterization. 2. Coronary angiography. 3. Moderate conscious sedation. 4. Left ventriculogram. ATTENDING PHYSICIAN: Douglas Guajardo MD REFERRING PHYSICIAN: Douglas Manzo MD, from the hospitalist service. INDICATION: Chest pain, positive stress test for ischemia and decreased EF. BRIEF HISTORY AND HOSPITAL COURSE: Mr. Subramanian is a 53-year-old male with history of familial hypertriglyceridemia who presented with elevated triglyceride and abdominal pain. The patient did complain of chest pain, was ruled out for myocardial infarction with cardiac stress test revealing a decreased EF of 45% with inferior ischemia. Given these findings, the patient was referred for and presents today in order to undergo for left heart catheterization to assess possibility of significant obstructive coronary artery lending to symptoms of chest pain and positive stress test findings. PROCEDURE IN DETAILS: After informed consent was obtained, the patient was brought to the [facility] cardiac catheterization lab, where his right groin was prepped and draped in sterile fashion. A 2% lidocaine was infiltrated into right groin in order to achieve adequate anesthesia. Using the modified Seldinger technique, the right femoral artery was cannulated and a 6- Welsh arterial sheath was placed. A 6-Welsh JL4 catheter was used to cannulate the left main coronary ostium. With contrast injection, multiple views of the left coronary arterial system were obtained. JL4 was removed over a guidewire and a JR4 was used to cannulate the right coronary arterial ostium. With contrast injection, multiple views of the right coronary system were obtained. JL4 was removed over a guidewire and a 6-Welsh pigtail was passed down the ascending aorta and placed in the LV. LVEDP was measured. Power inj patience was used to opacify the ventricle and pullback across the aortic valve to assess for significant gradient, which there was not and removed. Subsequently, this completed the procedure. The patient's sheath was removed. TR band was applied. There were no noted complications. FINDINGS: Coronary angiography: Left main is 4 mm, no significant focal stenosis. Circumflex proximally is a 3.5 mm vessel, has ostial 20% stenosis. Remainder of the circumflex thereafter is free of significant focal stenoses. There is a mid branching obtuse marginal 3 mm with no significant focal stenoses. The circumflex gives off a very small PDA making this a codominant vessel, 2 mm with mild luminal irregularities up to 20% and a distal branching obtuse marginal of 2.5 mm, no significant focal stenoses. The LAD proximally is 3.5 mm vessel and there is a diagonal that takes off proximally and has an ostial 40% stenosis. The LAD itself has no significant focal stenoses throughout its entirety and goes around the apex. The right coronary artery proximally is a 3.5 mm vessel and has mid body 20% to 30% stenosis and was again a codominant vessel and therefore gives off a right-sided PDA, 2 mm with no significant focal stenoses and a posterolateral branch is 2 mm with no s ignificant focal stenoses. It should be noted that the patient has a FRANKI 2 flow throughout all of his vessels with the right side being somewhat more rapid than left side. Left ventriculogram revealed a left ventricular ejection fraction of approximate ly 40% to 45% with mild anterolateral hypokinesis and apical kinesis. Left ventricular end diastolic pressure of 17 pre-LV gram and 21 post-LV gram. No significant aortic stenosis by gradient and 1+ mitral regurgitation. TOTAL FLUOROSCOPY TIME: 2.2 minutes. TOTAL CONTRAST: 70 mL. IMPRESSION: 1. Very mild nonobstructive coronary artery disease, but with reduced FRANKI 2 flow likely indicative of a microvascular dysfunction, endothelial dysfunction. 2. Mildly elevated left heart filling pressures with injection. 3. No significant aortic stenosis by gradient. 4. A 1+ mitral regurgitation. RECOMMENDATIONS: In light of procedure findings at this time, we would: 1. Maximize medical management. 2. Aggressive risk factor reduction. 3. Smoking cessation. 4. The patient will be readmitted to the telemetry floor for post- catheterization observation, continued management of his presenting symptoms. Hx of Present Illness Patient is a male with past medical history significant for familial trait hypertriglyceridemia, diabetes mellitus, hypertension, chronic pain in the back, substance abuse, severe anxiety who presents to [facility] for chest and abdominal pain. Patient states for the past 2 days and have patient has been having worsening of his chronic pancreatitis pain in his epigastric area as well as a substernal pressure as well as new onset numbness in the left upper extremity. Patient stated that he did not come in before because he thought the numbness was secondary to his chronic neuropathy however he is concerned. Patient also says that he has had some nausea and worsening of his back pain. Patient states he continues to see all his doctors and takes his medications on a normal basis. Patient denies any new symptoms regarding his lower extremity neuropathy, denies headache, denies dizziness. Hospital Course The patient was admitted to the ICU, started on an insulin gtt for elevated triglycerides. This was transitioned to insulin subQ. Hematology was consulted for plasmapheresis but Dr. Clark determined this was unnecessary, as levels were falling without needing it. Attention was turned to the patient's complaint of exertional chest pain, worsening in severity compared to his stress test 18 months ago. He got a repeat lory-scan showing possible inferior ischemia. He then went to cardiac cath which showed nonobstructive coronary artery disease. No interventions done. His triglycerides continued to decline, reaching 622 on discharge. Home Meds Active Scripts Aspirin* (Aspirin* Chew) 81 Mg Tab.chew, 81 MG PO DAILY, #90 TAB.CHEW Prov:DOUGLAS MANZO MD 06/30/18 Niacin* (Niacin*) 500 Mg Tablet, 500 MG PO QHS, #30 TAB Prov:DOUGLAS MANZO MD 06/30/18 Icosapent Ethyl (VASCEPA) 1 Gm Capsule, 3 GM PO TIDM A, #30 CAP Prov:DOUGLAS MANZO MD 06/30/18 Lisinopril* (Lisinopril*) 10 Mg Tablet, 10 MG PO DAILY, #30 TAB Prov:DOUGLAS MANZO MD 06/30/18 Atorvastatin* (Atorvastatin*) 80 Mg Tablet, 80 MG PO QHS, #90 TAB Prov:DOUGLAS MANZO MD 06/30/18 Atenolol* (Atenolol*) 25 Mg Tablet, 25 MG PO BID, #60 TAB 5 Refills Prov:DOUGLAS MANZO MD 06/30/18 Oriska-3/Dha/Epa/Fish Oil (FISH OIL EC 1,000 MG SOFTGEL) 1 Each Capsule.dr, 2000 MG PO BID, #60 CAP 4 Refills Prov:DOUGLAS MANZO MD 06/30/18 Metformin* (Glucophage*) 500 Mg Tab, 500 MG PO BID WITH MEALS, #60 TAB 3 Refills Prov:DOUGLAS MANZO MD 06/30/18 Insulin Aspart* (Novolog Insulin Pen*) 100 Unit/Ml Soln, 10 UNIT SC WITH MEALS, #5 EA 5 Refills Prov:DOUGLAS MANZO MD 06/30/18 Gemfibrozil* (Gemfibrozil*) 600 Mg Tablet, 600 MG PO BID, #60 TAB 3 Refills Prov:DOUGLAS MANZO MD 06/30/18 Gabapentin* (Gabapentin*) 400 Mg Capsule, 400 MG PO TID, #90 CAP Prov:DOUGLAS MANZO MD 06/30/18 Duloxetine Hcl* (Cymbalta*) 30 Mg Capsule.dr, 60 MG PO DAILY, #30 CAP Prov:DOUGLAS MANZO MD 06/30/18 Insulin Glargine,Hum.rec.anlog (Basaglar Kwikpen U-100) 100 Unit/1 Ml Insuln.pen, 20 UNIT SC QHS, #30 EA Prov:DOUGLAS MANZO MD 06/30/18 Albuterol Sulfate (Proair Respiclick) 90 Mcg Aer.pow.ba, 1 PUFF INHALATION Q4, #1 BOTTLE Prov:DOUGLAS MANZO MD 06/30/18 Pantoprazole (Protonix) 40 Mg Tabec, 40 MG PO DAILY for 30 Days, #30 TAB 4 Refills Prov:CHANTELLE PARRA MD 12/16/17 Lidocaine (Lidoderm) 1 Each Adh..patch, 1 EACH TP DAILY for 30 Days, #30 PATCH 6 Refills Prov:CHANTELLE PARRA MD 12/16/17 Oxycodone HCl/Acetaminophen (Oxycodone-Acetaminophen 5-325) 1 Each Tablet, 1 TAB PO Q6H PRN for PAIN LEVEL 4-6 for 7 Days, #20 TAB Prov:CHANTELLE PARRA MD 12/16/17 Neomycin/Polymyxin/Bacitr/Hc* (Cortisporin* Topical) 15 Gm Oint, 1 APPLIC TOP TID for 10 Days, #1 TUB 2 Refills Prov:CHANTELLE PARRA MD 12/16/17 Reported Medications Phentermine Hcl (Phentermine Hcl) 37.5 Mg Tablet, 37.5 MG PO DAILY, TAB 03/12/18 Ranitidine Hcl* (Ranitidine Hcl*) 75 Mg Tablet, 150 MG PO BID PRN for HEARTBURN, #60 TAB 03/05/18 Phentermine Hcl (Phentermine Hcl) 37.5 Mg Tablet, 37.5 MG PO DAILY, TAB 03/05/18 Metoclopramide Hcl* (Metoclopramide Hcl*) 10 Mg Tablet, 10 MG PO Q8H PRN for RADHA SEA AND OR VOMITING, TAB 12/10/17 Liraglutide (Victoza 3-Alvaro) 0.6 Mg/0.1 Ml Pen.injctr, 1.8 MG SQ DAILY, SYR 12/10/17 Sumatriptan* Nasal (Sumatriptan* Nasal) 5 Mg [place], 5 MG NASAL DAILY PRN for MIGRAINE HEADACHE, SPRAY If headache returns/persists, may repeat dose once after 2 hours; MAX 40 mg/24 hours 12/10/17 Clonazepam* (Klonopin*) 1 Mg Tablet, 1 MG PO QID PRN for ANXIETY, TAB 12/10/17 Hydromorphone Hcl* (Hydromorphone Hcl*) 2 Mg Tablet, 2 MG PO TID PRN for PAIN, TAB 12/10/17 Zolpidem Tartrate* (Zolpidem Tartrate*) 10 Mg Tablet, 10 MG PO QHS PRN for INSOMNIA, #30 TAB 12/10/17 Hydroxyzine Hcl* (Hydroxyzine Hcl*) 25 Mg Tablet, 25 MG PO Q8H PRN for ITCHING, #30 TAB 12/10/17 Discontinued Reported Medications Insulin Lispro (Humalog) 100 Unit/1 Ml Cartridge, 5 UNIT SQ AC A, EA 03/05/18 Terbinafine* (Lamisil*) 250 Mg Tablet, 250 MG PO DAILY, TAB 12/10/17 Follow-up Plan 1. Take all medications as prescribed. 2. See Dr. Pate at [facility] as scheduled. 3. Return to the emergency department for worsening chest pain unrelieved by rest. Primary Care Provider Not On Staff Doctor Time spent on discharge: > 30 minutes Pending Labs Laboratory Tests Test 06/29/18 19:46 06/29/18 21:41 06/30/18 07:50 06/30/18 09:57 Bedside 108 134 159 171 Glucose mg/dL (70-220) mg/dL (70-220) mg/dL (70-220) mg/dL (70-220) Test 06/30/18 10:19 06/30/18 12:22 06/30/18 14:09 White Blood 5.1 Count 10^3/ul (4.8-10 .8) Red Blood 4.73 Count 10^6/ul (4.70-6 .10) Hemoglobin 14.2 g/dl (14.0-18.0 ) Hematocrit 42.6 % (42.0-52.0) Mean 90.1 Corpuscular fl (82.0-101.0) Volume Mean 30.0 Corpuscular pg (29.0-33.0) Hemoglobin Mean 33.3 Corpuscular g/dl (32.0-37.0 Hemoglobin Conc ) ent Red Cell 12.6 Distribution % (11.5-14.5) Width Platelet Count 197 10^3/UL (140-41 5) Mean Platelet 10.8 Volume fl (7.4-10.4) Immature 0.800 Granulocytes % % (0.001-0.429) Neutrophils % 45.3 % (39.0-77.0) Lymphocytes % 42.9 % (15.0-51.0) Monocytes % 9.2 % (0.0-11.0) Eosinophils % 1.4 % (0.0-7.0) Basophils % 0.4 % (0.0-2.0) Nucleated Red 0.0 Blood Cells % /100WBC (0.0-0. 0) Immature 0.040 Granulocytes # 10^3/ul (0.0-0. 031) Neutrophils # 2.3 10^3/ul (1.6-7. 5) Lymphocytes # 2.2 10^3/ul (0.8-2. 9) Monocytes # 0.5 10^3/ul (0.3-0. 9) Eosinophils # 0.1 10^3/ul (0.0-0. 5) Basophils # 0.0 10^3/ul (0.0-0. 1) Nucleated Red 0.0 Blood Cells # 10^3/ul (0.0-0. 0) Sodium Level 138 mmol/L (135-144 ) Potassium 4.1 Level mmol/L (3.5-5.1 ) Chloride Level 101 mmol/L (97-110) Carbon Dioxide 29 Level mmol/L (21-31) Anion Gap 8 (5-13) Blood Urea 17 mg/dl (7-20) Nitrogen Creatinine 1.01 mg/dl (0.61-1.2 4) Est Glomerular > 60 Filtrat mL/min (>60) Rate mL/min Glucose Level 175 mg/dl (70-220) Calcium Level 9.3 mg/dl (8.4-10.2 ) Phosphorus 3.8 Level mg/dl (2.5-4.9) Magnesium 1.8 Level mg/dl (1.7-2.5) Total 0.2 Bilirubin mg/dl (0.2-1.3) Direct 0.00 Bilirubin mg/dl (0.00-0.2 0) Indirect 0.2 Bilirubin mg/dl (0-1.1) Aspartate Amino 21 IU/L (15-46) Transf (AST/SGO T) Alanine 13 IU/L (13-69) Aminotransferas e (ALT/SGPT) Alkaline 67 Phosphatase IU/L (42-121) Total Protein 6.9 g/dl (6.1-8.1) Albumin 4.1 g/dl (3.3-4.9) Globulin 2.80 g/dl (1.3-3.2) Albumin/Globuli 1.46 n Ratio Triglycerides 622 Level mg/dl (0-149) Bedside 170 119 Glucose mg/dL (70-220) mg/dL (70-220) DOUGLAS MANZO MD Jun 30, 2018 17:28
[2018-07-01] MEDS ORDERED: AMLODIPINE 2.5 MG TAB PO SCH (09:00)
== END 2018-06-30 16:35 | disposition home or self-care (01) | DRG 642 ==
LOC: E/R 16:49 → ICU 21:42 → MS1 06-28 12:35 → TEL 06-29 15:47
PROVIDERS: ADMIT Internal Medicine; ATTEND Internal Medicine
PROC: 4A02XM4 Measurement of Cardiac Total Activity, External Approach (ICD-10-PCS; 2018-06-28)
PROC: 3E073KZ Introduction of Other Diagnostic Substance into Coronary Artery, Percutaneous Approach (ICD-10-PCS; 2018-06-28)
PROC: C22G1ZZ Tomographic (Tomo) Nuclear Medicine Imaging of Myocardium using Technetium 99m (Tc-99m) (ICD-10-PCS; 2018-06-28)
PROC: B2111ZZ Fluoroscopy of Multiple Coronary Arteries using Low Osmolar Contrast (ICD-10-PCS; 2018-06-29)
PROC: 4A023N7 Measurement of Cardiac Sampling and Pressure, Left Heart, Percutaneous Approach (ICD-10-PCS; principal; 2018-06-29 14:30)
DX: E78.1 Pure hyperglyceridemia (principal); K86.1 Other chronic pancreatitis; E11.42 Type 2 diabetes mellitus with diabetic polyneuropathy; F41.9 Anxiety disorder, unspecified; I25.119 Atherosclerotic heart disease of native coronary artery with unspecified angina pectoris; I10 Essential (primary) hypertension; F17.290 Nicotine dependence, other tobacco product, uncomplicated; I34.0 Nonrheumatic mitral (valve) insufficiency
CPT/HCPCS: 36415; 70450; 71045; 74176; 78452; 80048; 80053; 80061; 80307; 82550; 82553; 82962; 83036; 83690; 83735; 84100; 84443; 84478; 84484; 85025; 85610; 85730; 87081; 93005; 93017; 93458; 96374; 96375; 96376; A9500; A9505; C1887; C9113; J1170; J1644; J1815; J2060; J2250; J2405; J2785; J3010; J7030; J7042; Q9967

== ENCOUNTER 2018-08-26 20:34 | Inpatient (IN) | payer OTHER ==
[~2018-08-26] VITALS: Ht 175.3 cm; Wt 100.4 kg
[~2018-08-26 20:34] MED LIST changes: +ASPI-903 PO; -INSU100C SQ; +NIAC500T81 PO; -TERB250T46 PO
[2018-08-26] MEDS ORDERED: SOD CHLORIDE 0.9% 1,000 ML IV STA (21:32)
[2018-08-26] MEDS ORDERED: KETAMINE HCL (50 MG/ML) 1ml syringe IV STA (21:40)
[2018-08-26] MEDS ORDERED: ONDANSETRON 4 MG INJ IV STA (21:40)
[2018-08-26] MEDS ORDERED: HYDROmorphONE 2 MG/ML SYG IV STA (22:39)
[2018-08-26] MEDS ORDERED: DIAZEPAM 5 MG/ML SYG IV ONE (23:00)
[2018-08-26] MEDS ORDERED: NON-FORMULARY/PATIENT OWN MED (Omega-3/Dha/Epa/Fish Oil (Fish Oil Ec 1,000 Mg Softgel) 2,0 PO SCH (23:00)
[2018-08-26] MEDS ORDERED: FISH OIL 1,000 MG CAP PO SCH (23:00)
[2018-08-26] MEDS ORDERED: ATORVASTATIN 80 MG TAB PO SCH (23:00)
[2018-08-26] MEDS ORDERED: ACETAMINOPHEN 325 MG TAB PO PRN (23:00)
[2018-08-26] MEDS ORDERED: ONDANSETRON 4 MG INJ IV PRN ×2 (23:00→23:30)
[2018-08-26] MEDS ORDERED: ICOSAPENT ETHYL PO SCH (23:00)
[2018-08-26] MEDS ORDERED: GEMFIBROZIL 600 MG TAB PO SCH (23:00)
--- NOTE | 2018-08-26 23:09 | ERD ---
ER Documentation Chief Complaint Chief Complaint here for evaluation/plasmapheresis d/t hypertriglyceridemia HPI 53-year-old gentleman history of familial hypertriglyceridemia, recurrent pancreatitis who presents to the emergency room with multiple complaints. He describes that he is supposed to have a surgical procedure on his cervical spine tomorrow but his preop clearance did not go through because of high triglycerides. Patient states that he is having recurrence of generalized abdominal cramping not improved with home Dilaudid. He denies any fevers or chills chest pain, no nausea vomiting or diarrhea. Pain is noted to be 6 out of 10 currently. ROS All systems reviewed and are negative except as per history of present illness. Medications Home Meds Active Scripts Aspirin* (Aspirin* Chew) 81 Mg Tab.chew, 81 MG PO DAILY, #90 TAB.CHEW Prov:DOUGLAS BAE MD 06/30/18 Niacin* (Niacin*) 500 Mg Tablet, 500 MG PO QHS, #30 TAB Prov:DOUGLAS BAE MD 06/30/18 Icosapent Ethyl (VASCEPA) 1 Gm Capsule, 3 GM PO TIDM A, #30 CAP Prov:DOUGLAS BAE MD 06/30/18 Lisinopril* (Lisinopril*) 10 Mg Tablet, 10 MG PO DAILY, #30 TAB Prov:DOUGLAS BAE MD 06/30/18 Atorvastatin* (Atorvastatin*) 80 Mg Tablet, 80 MG PO QHS, #90 TAB Prov:DOUGLAS BAE MD 06/30/18 Atenolol* (Atenolol*) 25 Mg Tablet, 25 MG PO BID, #60 TAB 5 Refills Prov:DOUGLAS BAE MD 06/30/18 [place]-3/Dha/Epa/Fish Oil (FISH OIL EC 1,000 MG SOFTGEL) 1 Each Capsule.dr, 2000 MG PO BID, #60 CAP 4 Refills Prov:DOUGLAS BAE MD 06/30/18 Metformin* (Glucophage*) 500 Mg Tab, 500 MG PO BID WITH MEALS, #60 TAB 3 Refills Prov:DOUGLAS BAE MD 06/30/18 Insulin Aspart* (Novolog Insulin Pen*) 100 Unit/Ml Soln, 10 UNIT SC WITH MEALS, #5 EA 5 Refills Prov:DOUGLAS BAE MD 06/30/18 Gemfibrozil* (Gemfibrozil*) 600 Mg Tablet, 600 MG PO BID, #60 TAB 3 Refills Prov:DOUGLAS BAE MD 06/30/18 Gabapentin* (Gabapentin*) 400 Mg Capsule, 400 MG PO TID, #90 CAP Prov:DOUGLAS BAE MD 06/30/18 Duloxetine Hcl* (Cymbalta*) 30 Mg Capsule.dr, 60 MG PO DAILY, #30 CAP Prov:DOUGLAS BAE MD 06/30/18 Insulin Glargine,Hum.rec.anlog (Basaglar Kwikpen U-100) 100 Unit/1 Ml Insuln.pen, 20 UNIT SC QHS, #30 EA Prov:DOUGLAS BAE MD 06/30/18 Albuterol Sulfate (Proair Respiclick) 90 Mcg Aer.pow.ba, 1 PUFF INHALATION Q4, #1 BOTTLE Prov:DOUGLAS BAE MD 06/30/18 Pantoprazole (Protonix) 40 Mg Tabec, 40 MG PO DAILY for 30 Days, #30 TAB 4 Refills Prov:CHANTELLE PARRA MD 12/16/17 Lidocaine (Lidoderm) 1 Each Adh..patch, 1 EACH TP DAILY for 30 Days, #30 PATCH 6 Refills Prov:CHANTELLE PARRA MD 12/16/17 Oxycodone HCl/Acetaminophen (Oxycodone-Acetaminophen 5-325) 1 Each Tablet, 1 TAB PO Q6H PRN for PAIN LEVEL 4-6 for 7 Days, #20 TAB Prov:CHANTELLE PARRA MD 12/16/17 Neomycin/Polymyxin/Bacitr/Hc* (Cortisporin* Topical) 15 Gm Oint, 1 APPLIC TOP TID for 10 Days, #1 TUB 2 Refills Prov:CHANTELLE PARRA MD 12/16/17 Reported Medications Phentermine Hcl (Phentermine Hcl) 37.5 Mg Tablet, 37.5 MG PO DAILY, TAB 03/12/18 Ranitidine Hcl* (Ranitidine Hcl*) 75 Mg Tablet, 150 MG PO BID PRN for HEARTBURN, #60 TAB 03/05/18 Phentermine Hcl (Phentermine Hcl) 37.5 Mg Tablet, 37.5 MG PO DAILY, TAB 03/05/18 Metoclopramide Hcl* (Metoclopramide Hcl*) 10 Mg Tablet, 10 MG PO Q8H PRN for NAUSEA AND OR VOMITING, TAB 12/10/17 Liraglutide (Victoza 3-Avlaro) 0.6 Mg/0.1 Ml Pen.injctr, 1.8 MG SQ DAILY, SYR 12/10/17 Sumatriptan* Nasal (Sumatriptan* Nasal) 5 Mg [place], 5 MG NASAL DAILY PRN for MIGRAINE HEADACHE, SPRAY If headache returns/persists, may repeat dose once after 2 hours; MAX 40 mg/24 hours 12/10/17 Clonazepam* (Klonopin*) 1 Mg Tablet, 1 MG PO QID PRN for ANXIETY, TAB 12/10/17 Hydromorphone Hcl* (Hydromorphone Hcl*) 2 Mg Tablet, 2 MG PO TID PRN for PAIN, TAB 12/10/17 Zolpidem Tartrate* (Zolpidem Tartrate*) 10 Mg Tablet, 10 MG PO QHS PRN for INSOMNIA, #30 TAB 12/10/17 Hydroxyzine Hcl* (Hydroxyzine Hcl*) 25 Mg Tablet, 25 MG PO Q8H PRN for ITCHING, #30 TAB 12/10/17 Allergies Allergies: Coded Allergies: hydrocodone (Verified Allergy, Unknown, 12/10/17) morphine (Verified Allergy, Unknown, 12/10/17) PMhx/Soc History of Surgery: No Anesthesia Reaction: No Hx Neurological Disorder: No Hx Respiratory Disorders: Yes (asthma) Hx Psychiatric Problems: Yes (SEVERE ANXIETY) Hx Miscellaneous Medical Probl: Yes (CHRONIC PANCREATITIS) Hx Alcohol Use: No Hx Substance Use: Yes Hx Tobacco Use: Yes Smoking Status: Current some day smoker FmHx Family History: No diabetes Physical Exam Vitals Vital Signs Date Temp Pulse Resp B/P (MAP) Pulse Ox O2 O2 Flow FiO2 Time Delivery Rate 08/26/18 97.4 108 20 136/86 99 20:39 (103) Physical Exam General: Well developed, well nourished, no acute distress Head: Normocephalic, atraumatic. Eyes: Pupils equally reactive, EOM intact ENT: Moist mucous membranes Neck: Supple, no lymphadenopathy Respiratory: Lungs clear bilaterally, no distress Cardiovascular: RRR, no murmurs, rubs, or gallops Abdominal: Soft, non-tender, non-distended, no peritoneal signs : Deferred MSK: No edema, no unilateral swelling, 5/5 strength Neurologic: Alert and oriented, moving all extremities, normal speech, no focal weakness, no cerebellar signs Skin: No rash Psych: Normal mood Result Diagram: 08/26/18215008/26/182150 Results 24 hrs Laboratory Tests Test 08/26/18 21:51 08/26/18 23:29 White Blood Count 6.8 10^3/ul Red Blood Count 5.10 10^6/ul Hemoglobin 15.5 g/dl Hematocrit 43.5 % Mean Corpuscular Volume 85.3 fl Mean Corpuscular Hemoglobin 30.4 pg Mean Corpuscular Hemoglobin Concent 35.6 g/dl Red Cell Distribution Width 11.9 % Platelet Count 224 10^3/UL Mean Platelet Volume 10.2 fl Immature Granulocytes % 0.700 % Neutrophils % 64.8 % Lymphocytes % 25.9 % Monocytes % 7.5 % Eosinophils % 0.7 % Basophils % 0.4 % Nucleated Red Blood Cells % 0.0 /100WBC Immature Granulocytes # 0.050 10^3/ul Neutrophils # 4.4 10^3/ul Lymphocytes # 1.8 10^3/ul Monocytes # 0.5 10^3/ul Eosinophils # 0.1 10^3/ul Basophils # 0.0 10^3/ul Nucleated Red Blood Cells # 0.0 10^3/ul Sodium Level 134 mmol/L Potassium Level 4.6 mmol/L Chloride Level 99 mmol/L Carbon Dioxide Level 23 mmol/L Anion Gap 12 Blood Urea Nitrogen 14 mg/dl Creatinine 0.84 mg/dl Est Glomerular Filtrat Rate mL/min > 60 mL/min Glucose Level 328 mg/dl Calcium Level 9.9 mg/dl Total Bilirubin 0.2 mg/dl Direct Bilirubin 0.00 mg/dl Indirect Bilirubin 0.2 mg/dl Aspartate Amino Transf (AST/SGOT) 23 IU/L Alanine Aminotransferase (ALT/SGPT) 12 IU/L Alkaline Phosphatase 91 IU/L Total Protein 8.0 g/dl Albumin 4.6 g/dl Globulin 3.40 g/dl Albumin/Globulin Ratio 1.35 Triglycerides Level > 1575 mg/dl Lipase 739 U/L Bedside Glucose 325 mg/dL Current Medications Medications Dose Sig/Hayes Start Time Status Last (Trade) Ordered Route PRN Stop Time Admin Dose Reason Admin Sodium 1,000 ml @ Q1H STAT 08/26/18 DC 08/26/18 Chloride 1,000 mls/hr IV 21:32 22:03 08/26/18 22:31 Ondansetron 4 mg ONCE STAT 08/26/18 DC 08/26/18 HCl (Zofran IV 21:40 21:59 Inj) 08/26/18 21:41 Ketamine 29 mg ONCE STAT 08/26/18 DC 08/26/18 HCl IV 21:40 22:01 (Ketamine 08/26/18 21:41 HCl) 1 mg ONCE STAT 08/26/18 DC 08/26/18 Hydromorphone IV 22:39 22:51 HCl 08/26/18 22:40 (Dilaudid) Diazepam 5 mg ONCE ONCE 08/26/18 DC 08/26/18 (Valium) IV 23:00 22:51 08/26/18 23:01 Ondansetron 4 mg BRIDGE ORDER 08/26/18 HCl (Zofran PRN IV 23:00 Inj) NAUSEA/VOMITI 08/27/18 22:59 NG 650 mg ER BRIDGE 08/26/18 08/26/18 Acetaminophen PRN PO 23:00 22:51 (Tylenol .MILD PAIN 08/27/18 22:59 Tab) 1-3 OR TEMP 80 mg QHS PO 08/26/18 Atorvastatin 23:00 Calcium (Lipitor) Gemfibrozil 600 mg BID PO 08/26/18 (Lopid) 23:00 Niacin 500 mg QHS PO 08/27/18 (Niacin) 21:00 3 gm TIDM A PO 08/26/18 UNV Miscellaneous 23:00 Information 2,000 mg BID PO 08/26/18 DC Miscellaneous 23:00 Information 08/26/18 23:02 Fish Oil 2,000 mg BID PO 08/26/18 (Fish Oil) 23:00 Discontinue PROTOCOL 08/26/18 DC Miscellaneous all previ... ONCE XX 23:30 08/26/18 23:31 Information (* Miscellaneous Pharmacy Order) Diagnostic 1 ea Q1H XX 08/26/18 Test (Pha) 23:30 (Accu-Chek) Insulin 100 ml @ 0 PER 08/26/18 Human mls/hr PROTOCOL IV 23:30 Regular 100 unit/ Sodium Chloride Treatment Per 08/26/18 Miscellaneous of protocol XX 23:30 Hypoglycemia: Information 1.BG 51... (* Miscellaneous Pharmacy Order) Dextrose 25 ml Q15M PRN 08/26/18 (D50w IV 23:30 Syringe) .DECREASED GLUCOSE Dextrose 50 ml Q15M PRN 08/26/18 (D50w IV 23:30 Syringe) .DECREASED GLUCOSE 1,000 ml @ Q8H IV 08/26/18 Dextrose/Sodi 125 mls/hr 23:30 um Chloride Ondansetron 4 mg Q6H PRN 08/26/18 HCl (Zofran IV NAUSEA 23:30 Inj) AND/OR VOMITING 650 mg Q6H PRN 08/26/18 Acetaminophen PO PAIN 23:30 (Tylenol LEVEL 1-3 OR Liquid) FEVER 0.5 mg Q4H PRN 08/26/18 Hydromorphone IV PAIN 23:30 HCl LEVEL 7-10 (Dilaudid) 40 mg DAILY@06 08/27/18 Pantoprazole IV 06:00 (Protonix Iv) Sodium 1,000 ml @ Q8H IV 08/26/18 UNV Chloride 125 mls/hr 23:30 Procedures/MDM LAB INTERPRETATION: I reviewed the laboratory testing and it shows mild elevation of lipase MEDICAL DECISION MAKING: The patient presents to the emergency room for further evaluation and preop clearance. The patient states that his triglycerides are too high and he was sent to the emergency room for possible a pheresis. Patient is also having recurrent abdominal pain. However, the patient does have chronic pain issues and chronic abdominal pain and is using Dilaudid 2 mg regularly at home. Unclea r if this is an exacerbation of his chronic pain or truly acute pancreatitis. Patient will benefit from laboratory testing, fluids, pain control, anxiolysis and likely admission. I will reach out to hematology to discuss a pheresis. Hypertriglyceridemia can be treated with insulin therapy in the setting of acute pancreatitis. Triglyceride value is pending. Patient's lipase is only 700. I believe his abdominal pain is more consistent with his chronic abdominal pain therefore I am not sure there is a clear indication for insulin therapy at this time. ER COURSE: * Patient given IV fluids. Ketamine for analgesia without much improvement. Dilaudid and Valium. * Given that the patient's triglyceride value was greater than 1500 with concordant conversation with the admitting team we have agreed that the patient may benefit from insulin drip. This may avoid a pheresis and would potentially help the patient have improved triglyceride values while reducing his risk for complications. The benefits seem to outweigh the risks at this time. * Insulin therapy initiated, D5 maintenance fluid ordered. Patient will be upgraded to the intensive care unit CONSULTATION: Hematology oncology: Dr. Eduardo hallman DISPOSITION PLAN: Accepting care team and consultations: I discussed the current laboratory data, diagnostic imaging and emergency care provided. Admitting team: Dr Andrea Admitting team indication: Insurance directed Critical Care Note: Total time: 30 minutes Indication/Organ System Threat: Hypertriglyceridemia requiring insulin drip therapy I spent the above amount of critical care time with the patient, not including billable procedures. This included chart review, consultations, repeat bedside evaluations, and titration of appropriate medications to prevent cardiopulmonary or respiratory collapse. Departure Diagnosis: Primary Impression: Chronic recurrent pancreatitis Additional Impression: Hypertriglyceridemia Condition: Stable ART BRICEÑO MD Aug 26, 2018 23:09
--- NOTE | 2018-08-26 23:21 | HP ---
Date/Time of Note Date/Time of Note DATE: 08/26/18 TIME: 23:21 Assessment/Plan VTE Prophylaxis SCD applied (from Nsg): Yes Pharmacological prophylaxis: NA/contraindicated Pharm contraindication: low risk/ambulating Lines/Catheters IV Catheter Type (from Nrsg): Saline Lock Assessment/Plan Hospital Course This is a 53-year-old male being admitted to the ICU floor for: #1 severe hypertriglyceridemia: Patient has a history of familial hypertriglyceridemia. Reports that he has had plasmapheresis in the past. At the current time will start the patient on insulin drip. I will resume his home statin, fish oil, vascepa, fibrate. IV fluid hydration with normal saline. Endocrine consultation in the a.m. Monitor triglyceride levels. #2 recurrent pancreatitis: Keep patient n.p.o. at the current time, IV fluid hydration, monitor lipase levels. I will obtain a CT of the abdomen and pelvis with IV contrast to further evaluate. #3 Cervical spine pathology: Patient apparently has nerve impingement/bulging disc that he needs to have a procedure on. He was scheduled for 08/[address] Azael ortega. This likely will need to be rescheduled, he states that his primary doctor is going to notify his surgeon in the a.m. #4 Hypertension: Resume lisinopril #5 diabetes mellitus: We will check hemoglobin A1c, last was 7.0. Insulin GGT at the current time for #1. Resume home regimen once indicated. #6 severe anxiety: Resume home benzo, Cymbalta #7 chronic back pain: Currently patient is on Dilaudid p.o. at home, will give him IV at the current time for pancreatitis. #8 DVT GI prophylaxis: SCDs, Protonix Further treatment strategy will be implemented as per the clinical course. Greater than 45 minutes of critical care time was spent on the care and management of this patient. Result Diagram: 08/26/18215008/26/18 2151 Results 24hrs Laboratory Tests Test 08/26/18 21:51 White Blood Count 6.8 # Red Blood Count 5.10 Hemoglobin 15.5 Hematocrit 43.5 Mean Corpuscular Volume 85.3 Mean Corpuscular Hemoglobin 30.4 Mean Corpuscular Hemoglobin Concent 35.6 Red Cell Distribution Width 11.9 Platelet Count 224 Mean Platelet Volume 10.2 Immature Granulocytes % 0.700 H Neutrophils % 64.8 Lymphocytes % 25.9 Monocytes % 7.5 Eosinophils % 0.7 Basophils % 0.4 Nucleated Red Blood Cells % 0.0 Immature Granulocytes # 0.050 H Neutrophils # 4.4 Lymphocytes # 1.8 Monocytes # 0.5 Eosinophils # 0.1 Basophils # 0.0 Nucleated Red Blood Cells # 0.0 Sodium Level 134 L Potassium Level 4.6 Chloride Level 99 Carbon Dioxide Level 23 Anion Gap 12 Blood Urea Nitrogen 14 Creatinine 0.84 Est Glomerular Filtrat Rate mL/min > 60 Glucose Level 328 H Calcium Level 9.9 Total Bilirubin 0.2 Direct Bilirubin 0.00 Indirect Bilirubin 0.2 Aspartate Amino Transf (AST/SGOT) 23 Alanine Aminotransferase (ALT/SGPT) 12 L Alkaline Phosphatase 91 Total Protein 8.0 Albumin 4.6 Globulin 3.40 H Albumin/Globulin Ratio 1.35 Triglycerides Level > 1575 H Lipase 739 H HPI/ROS Admit Date/Time Admit Date/Time Hx of Present Illness Chief complaint: Abnormal labs sent in from PMDs office 53-year-old gentleman history of familial hypertriglyceridemia, recurrent pancreatitis who presents to the emergency room with multiple complaints. He reports that he was supposed to have a surgical procedure for his spine on however when he went to his primary care doctor's office for preop clearance his labs were noted to be abnormal and he was told to come in to the hospital. Patient states that he is having recurrence of generalized abdominal cramping not improved with home Dilaudid. He does report occasional nausea vomiting as well. He denies any fevers or chills chest pain, no nausea vomiting or diarrhea. Pain is noted to be 6 out of 10 currently. He reports that he has had plasmapheresis in the past. Allergies: Hydrocodone, morphine Medications: See Jul Const: As per HPI Eyes : No pain discharge or redness or change in visual acuity ENT: As per HPI Respiratory: No shortness of breath, cough, sputum, wheezing, or pleuritic pain Cardiovascular: No chest pain, palpitation, PND, or edema GI : As per HPI Genitourinary: No dysuria, hematuria, flank pain , discharge or CVA tenderness Musculoskeletal: No joint pain, back pain, neck pain, restricted range of motion in neck or joints Skin: No rash, bruising or hives Neuro: No headache, dizziness, syncope, seizure, focal weakness Endocrine: No polyuria, polydipsia, temperature intolerance Psych: No hallucination, depression, anxiety or suicidal ideation PMH/Family/Social Past Medical History Familial hypertriglyceridemia, diabetes mellitus, hypertension, chronic back pain, substance abuse, severe anxiety Medications Current Medications Ondansetron HCl (Zofran Inj) 4 mg BRIDGE ORDER PRN IV NAUSEA/VOMITING; Start 08/26/18 at 23:00; Stop 08/27/18 at 22:59 Acetaminophen (Tylenol Tab) 650 mg ER BRIDGE PRN PO .MILD PAIN 1-3 OR TEMP Last administered on 08/26/18at 22:51; Admin Dose 650 MG; Start 08/26/18 at 23:00; Stop 08/27/18 at 22:59 Atorvastatin Calcium (Lipitor) 80 mg QHS PO ; Start 08/26/18 at 23:00 Gemfibrozil (Lopid) 600 mg BID PO ; Start 08/26/18 at 23:00 Niacin (Niacin) 500 mg QHS PO ; Start 08/27/18 at 21:00 Miscellaneous Information 3 gm TIDM A PO ; Start 08/26/18 at 23:00; Status UNV Fish Oil (Fish Oil) 2,000 mg BID PO ; Start 08/26/18 at 23:00 Miscellaneous Information (* Miscellaneous Pharmacy Order) Discontinue all previ... PROTOCOL ONCE XX ; Start 08/26/18 at 23:30; Stop 08/26/18 at 23:31 Diagnostic Test (Pha) (Accu-Chek) 1 ea Q1H XX ; Start 08/26/18 at 23:30 Insulin Human Regular 100 unit/ Sodium Chloride 100 ml @ 0 mls/hr PER PROTOCOL IV ; Start 08/26/18 at 23:30 Miscellaneous Information (* Miscellaneous Pharmacy Order) Treatment of Hypoglycemia: 1.BG 51... Per protocol XX ; Start 08/26/18 at 23:30 Dextrose (D50w Syringe) 25 ml Q15M PRN IV .DECREASED GLUCOSE; Start 08/26/18 at 23:30 Dextrose (D50w Syringe) 50 ml Q15M PRN IV .DECREASED GLUCOSE; Start 08/26/18 at 23:30 Dextrose/Sodium Chloride 1,000 ml @ 100 mls/hr Q10H IV ; Start 08/26/18 at 23:30 Ondansetron HCl (Zofran Inj) 4 mg Q6H PRN IV NAUSEA AND/OR VOMITING; Start 08/26/18 at 23:30; Status UNV Acetaminophen (Tylenol Liquid) 650 mg Q6H PRN PO PAIN LEVEL 1-3 OR FEVER; Start 08/26/18 at 23:30; Status UNV Hydromorphone HCl (Dilaudid) 0.5 mg Q4H PRN IV PAIN LEVEL 7-10; Start 08/26/18 at 23:30; Status UNV Pantoprazole (Protonix Iv) 40 mg DAILY@06 IV ; Start 08/27/18 at 06:00; Status UNV Coded Allergies: hydrocodone (Verified Allergy, Unknown, 12/10/17) morphine (Verified Allergy, Unknown, 12/10/17) Past Surgical History diagnostic Left heart cath Family History Significant Family History: no pertinent family hx Social History Alcohol Use: none Smoking Status: Current some day smoker Drug Use: other (CBD) Exam/Review of Systems Vital Signs Vitals Vital Signs Date Temp Pulse Resp B/P (MAP) Pulse Ox O2 O2 Flow FiO2 Time Delivery Rate 08/26/18 97.4 108 20 136/86 99 20:39 (103) Exam Exam General: She currently lying in bed, he does report abdominal pain, is also very anxious HEENT: Atraumatic, normocephalic. The pupils are equal, round and reactive. Extraocular motor are intact Neck: Supple with full range of motion. No rigidity or meningismus Chest: Nontender Lungs: Clear to auscultation bilaterally no crackles rales or wheezing Heart: Normal S1-S2, Regular rhythm and rate. No murmur, S3, or S4 Abdomen: Soft , epigastric tenderness to palpation, nondistended , bowel sounds are present. No guarding no rebound tenderness , No masses or organomegaly. No costovertebral temporal angle mass Extremities: Normal to inspection, no edema no cyanosis Neurologic: Normal mental status, speech normal, cranial nerves II through XII are intact, motor and sensory are intact, no focal weakness Psych: Patient does appear very anxious, he states he is nervous about his procedure for his neck. BLAYNE JEORME Aug 26, 2018 23:21
[2018-08-26] MEDS ORDERED: HYDROmorphONE 0.5 MG/0.5 ML SYG IV PRN (23:30)
[2018-08-26] MEDS ORDERED: ACETAMINOPHEN 650MG/20.3ML CUP PO PRN (23:30)
[2018-08-26] MEDS ORDERED: INSULIN HUMAN REGULAR 100 UNIT in SOD CHLORIDE 0.9% 99 ML IV SCH (23:30)
[2018-08-26] MEDS: ACCU-CHEK XX SCH (23:30)
[2018-08-26] MEDS ORDERED: SOD CHLORIDE 0.9% 1,000 ML IV SCH (23:30)
[2018-08-26] MEDS ORDERED: DEXTROSE 5%-0.45% NACL 1,000 ML IV SCH (23:30)
[2018-08-26] MEDS ORDERED: DEXTROSE 50% 50 ML SYRINGE IV PRN ×2 (23:30)
[2018-08-27] VITALS (7 sets, daily range): BP systolic 110–160; BP diastolic 20–106; PULSE 96–104; RESP 12–22; Ht 175.3 cm; Wt 100.4 kg
[2018-08-27] MEDS: ACCU-CHEK XX SCH ×8 (00:37→07:51)
[2018-08-27] MEDS ORDERED: ZOLPIDEM 5 MG TAB PO PRN ×2 (04:00→05:00)
[2018-08-27] MEDS ORDERED: PATIENT'S OWN MEDICATION NASAL PRN (04:00)
[2018-08-27] MEDS ORDERED: HYDROmorphONE 1 MG/ML SYG IV PRN (04:00)
[2018-08-27] MEDS ORDERED: SUMATRIPTAN 5 MG NASAL PRN (05:00)
[2018-08-27] MEDS ORDERED: clonAZEPAM 0.5 MG TAB PO PRN (05:00)
[2018-08-27] MEDS ORDERED: RANITIDINE 150 MG TAB PO PRN (05:00)
[2018-08-27] MEDS ORDERED: OXYCODONE/ACETAMINOPHEN (5/325) TAB PO PRN (05:00)
[2018-08-27] MEDS ORDERED: LORAZEPAM 2 MG INJ IV PRN (05:00)
[2018-08-27] MEDS ORDERED: PANTOPRAZOLE 40 MG INJ IV SCH (06:00)
--- NOTE | 2018-08-27 08:53 | CONS ---
Assessment/Plan Assessment/Plan Problems: (1) Obesity (BMI 30.0-34.9) Status: Chronic Comment: I am in agreement with the patient's assessment and when he is very careful with his diet this would have a profound and positive effect on his triglycerides. Regrettably he has not done that and lead up to his surgery which has led to the predictable outcome of his triglycerides being high. In terms of whether or not his primary care physician should have written the clearance for surgery I would have to defer that off to her internal thought processes. (2) Familial hypertriglyceridemia Status: Chronic Comment: As noted in prior dictations I am in agreement with the usage of the fabric acid derivative, and the statin medication but especially the higher dose Vascepa which would be at 4 pills twice a day, niacin 500 mg nightly every night combined with aspirin and Metamucil which will block the symptoms and then pushing up on the niacin. In addition better control of the patient's sugars will have a positive outcome. With that assuming that there are no other issues that were discovered in Dr. Yin's evaluation he should be able to be cleared for his neck surgery. These note there is not an indication for an insulin drip at this time (3) Chronic recurrent pancreatitis Status: Chronic Comment: He is not in a state of pancreatitis at this time which would indicate that there is not an emergent or urgent need for plasmapheresis. (4) Type 2 diabetes mellitus without complications Status: Chronic Comment: This time his control is in adequate. Please note that the usage of pioglitazone would also have a beneficial effect on his triglyceride levels. Please note there is not an indication for an insulin drip at this time Qualifiers: Qualified Codes: E11.9 - Type 2 diabetes mellitus without complications; Z79.4 - exterminator helper (current) use of insulin (5) Noncompliance with medication regimen Status: Chronic Comment: Noted. Please note this patient was not of a mood to discuss this after finding out he would not be receiving plasmapheresis. Consultation Date/Type/Reason Admit Date/Time August 27, 2018 Date of Consultation: Aug 27, 2018 Type of Consult Endocrine Reason for Consultation Hypertriglyceridemia-familial; diabetes mellitus type 2; obesity; Requesting Provider: ARAVIND EDEN M.D. Date/Time of Note DATE: 08/27/18 TIME: 08:43 Hx of Present Illness This is 1 of several [facility] admissions for this [age]-year-old right-handed single male. He was reportedly scheduled to have cervical spine surgery for ruptured disc today. As the patient describes it he had gone to his primary care physician Dr. Bertha Yin of the [facility] but she was unable to clear him due to his high triglycerides. As the patient reports that she advised that he should come to the emergency room to get plasmapheresis since that helps to get his triglycerides down quickly. As of this time there is been no clearance written for him for the surgery which is supposed to already be underway. Patient reports he has been able to get his triglycerides down if he follows an extremely strict diet at home. He has not been doing that. In addition he has been taking his Vascepa at 2 pills twice a day as opposed to the 4 pills twice a day. He has also intermittently taking the niacin but it limited dosing. He informs me is not using the technique we taught him to use Metamucil simultaneous with the niacin to slow down the obstruction which blocks the flushing sensation. He reports that the physician at [facility] that works with him Dr. Pate, is only working on Wednesdays and does not return his phone calls quickly. As such in the interest of expediency he brought himself to the emergency room and requested to be plasmapheresis which in his experience has worked very quickly. He has a negative GI review of systems specifically does not have a symptoms of pancreatitis, is not having any symptoms suggesting vascular insufficiency including no symptoms for cardiovascular insufficiency cerebrovascular insufficiency or peripheral vascular insufficiency. Constitutional: no complaints (Denies fevers chills or sweats) Eyes: no complaints ENT: no complaints Respiratory: no complaints Cardiovascular: no complaints Gastrointestinal: no complaints Genitourinary: no complaints Musculoskeletal: other (Neck pain with right-sided radiculopathy) Skin: no complaints Neurologic: no complaints (Outside of the radiculopathy no complaints) Endocrine: no complaints Lymphatic: no complaints Psychological: anxiety Past Medical History Medical History: diabetes (Type II), high cholesterol (Medial hypertriglyceridemia with a history of pancreatitis), hypertension, hypothyroid, other (Cervical spine disc disease with radiculopathy; migraines syndrome) Home Meds Active Scripts Aspirin* (Aspirin* Chew) 81 Mg Tab.chew, 81 MG PO DAILY, #90 TAB.CHEW Prov:DOUGLAS BAE MD 06/30/18 Niacin* (Niacin*) 500 Mg Tablet, 500 MG PO QHS, #30 TAB Prov:DOUGLAS BAE MD 06/30/18 Icosapent Ethyl (VASCEPA) 1 Gm Capsule, 3 GM PO TIDM A, #30 CAP Prov:DOUGLAS BAE MD 06/30/18 Lisinopril* (Lisinopril*) 10 Mg Tablet, 10 MG PO DAILY, #30 TAB Prov:DOUGLAS BAE MD 06/30/18 Atorvastatin* (Atorvastatin*) 80 Mg Tablet, 80 MG PO QHS, #90 TAB Prov:DOUGLAS BAE MD 06/30/18 Atenolol* (Atenolol*) 25 Mg Tablet, 25 MG PO BID, #60 TAB 5 Refills Prov:DOUGLAS BAE MD 06/30/18 [place]-3/Dha/Epa/Fish Oil (FISH OIL EC 1,000 MG SOFTGEL) 1 Each Capsule.dr, 2000 MG PO BID, #60 CAP 4 Refills Prov:DOUGLAS BAE MD 06/30/18 Metformin* (Glucophage*) 500 Mg Tab, 500 MG PO BID WITH MEALS, #60 TAB 3 Refills Prov:DOUGLAS BAE MD 06/30/18 Insulin Aspart* (Novolog Insulin Pen*) 100 Unit/Ml Soln, 10 UNIT SC WITH MEALS, #5 EA 5 Refills Prov:DOUGLAS BAE MD 06/30/18 Gemfibrozil* (Gemfibrozil*) 600 Mg Tablet, 600 MG PO BID, #60 TAB 3 Refills Prov:DOUGLAS BAE MD 06/30/18 Gabapentin* (Gabapentin*) 400 Mg Capsule, 400 MG PO TID, #90 CAP Prov:DOUGLAS BAE MD 06/30/18 Duloxetine Hcl* (Cymbalta*) 30 Mg Capsule.dr, 60 MG PO DAILY, #30 CAP Prov:DOUGLAS BAE MD 06/30/18 Insulin Glargine,Hum.rec.anlog (Basaglar Kwikpen U-100) 100 Unit/1 Ml Insuln.pen, 20 UNIT SC QHS, #30 EA Prov:DOUGLAS BAE MD 06/30/18 Albuterol Sulfate (Proair Respiclick) 90 Mcg Aer.pow.ba, 1 PUFF INHALATION Q4, #1 BOTTLE Prov:DOUGLAS BAE MD 06/30/18 Pantoprazole (Protonix) 40 Mg Tabec, 40 MG PO DAILY for 30 Days, #30 TAB 4 Refills Prov:CHANTELLE PARRA MD 12/16/17 Lidocaine (Lidoderm) 1 Each Adh..patch, 1 EACH TP DAILY for 30 Days, #30 PATCH 6 Refills Prov:CHANTELLE PARRA MD 12/16/17 Oxycodone HCl/Acetaminophen (Oxycodone-Acetaminophen 5-325) 1 Each Tablet, 1 TAB PO Q6H PRN for PAIN LEVEL 4-6 for 7 Days, #20 TAB Prov:CHANTELLE PARRA MD 12/16/17 Neomycin/Polymyxin/Bacitr/Hc* (Cortisporin* Topical) 15 Gm Oint, 1 APPLIC TOP TID for 10 Days, #1 TUB 2 Refills Prov:CHANTELLE PARRA MD 12/16/17 Reported Medications Ranitidine Hcl* (Ranitidine Hcl*) 75 Mg Tablet, 150 MG PO BID PRN for HEARTBURN, #60 TAB 03/05/18 Phentermine Hcl (Phentermine Hcl) 37.5 Mg Tablet, 37.5 MG PO DAILY, TAB 03/05/18 Liraglutide (Victoza 3-Alvaro) 0.6 Mg/0.1 Ml Pen.injctr, 1.8 MG SQ DAILY, SYR 12/10/17 Sumatriptan* Nasal (Sumatriptan* Nasal) 5 Mg [place], 5 MG NASAL DAILY PRN for MIGRAINE HEADACHE, SPRAY If headache returns/persists, may repeat dose once after 2 hours; MAX 40 mg/24 hours 12/10/17 Clonazepam* (Klonopin*) 1 Mg Tablet, 1 MG PO QID PRN for ANXIETY, TAB 12/10/17 Hydromorphone Hcl* (Hydromorphone Hcl*) 2 Mg Tablet, 2 MG PO TID PRN for PAIN, TAB 12/10/17 Zolpidem Tartrate* (Zolpidem Tartrate*) 10 Mg Tablet, 10 MG PO QHS PRN for INSOMNIA, #30 TAB 12/10/17 Hydroxyzine Hcl* (Hydroxyzine Hcl*) 25 Mg Tablet, 25 MG PO Q8H PRN for ITCHING, #30 TAB 12/10/17 Discontinued Reported Medications Phentermine Hcl (Phentermine Hcl) 37.5 Mg Tablet, 37.5 MG PO DAILY, TAB 03/12/18 Metoclopramide Hcl* (Metoclopramide Hcl*) 10 Mg Tablet, 10 MG PO Q8H PRN for NAUSEA AND OR VOMITING, TAB 12/10/17 Medications Current Medications Ondansetron HCl (Zofran Inj) 4 mg BRIDGE ORDER PRN IV NAUSEA/VOMITING; Start 08/26/18 at 23:00; Stop 08/27/18 at 22:59 Acetaminophen (Tylenol Tab) 650 mg ER BRIDGE PRN PO .MILD PAIN 1-3 OR TEMP Last administered on 08/26/18at 22:51; Admin Dose 650 MG; Start 08/26/18 at 23:00; S top 08/27/18 at 22:59 Atorvastatin Calcium (Lipitor) 80 mg QHS PO Last administered on 08/27/18at 00: 48; Admin Dose 80 MG; Start 08/26/18 at 23:00 Gemfibrozil (Lopid) 600 mg BID PO Last administered on 08/26/18at 23:57; Admin Dose 600 MG; Start 08/26/18 at 23:00 Niacin (Niacin) 500 mg QHS PO ; Start 08/27/18 at 21:00 Miscellaneous Information 3 gm TIDM A PO ; Start 08/26/18 at 23:00; Status UNV Fish Oil (Fish Oil) 2,000 mg BID PO Last administered on 08/26/18 23:57; Admin Dose 2,000 MG; Start 08/26/18 at 23:00 Diagnostic Test (Pha) (Accu-Chek) 1 ea Q1H XX Last administered on 08/27/18at 07:51; Admin Dose 1 EA; Start 08/26/18 at 23:30 Insulin Human Regular 100 unit/ Sodium Chloride 100 ml @ 0 mls/hr PER PROTOCOL IV Last administered on 08/26/18at 23:55; Admin Dose 7 MLS/HR; Start 08/26/18 at 23:30 Miscellaneous Information (* Miscellaneous Pharmacy Order) Treatment of Hypoglycemia: 1.BG 51... Per protocol XX ; Start 08/26/18 at 23:30 Dextrose (D50w Syringe) 25 ml Q15M PRN IV .DECREASED GLUCOSE; Start 08/26/18 at 23:30 Dextrose (D50w Syringe) 50 ml Q15M PRN IV .DECREASED GLUCOSE; Start 08/26/18 at 23:30 Dextrose/Sodium Chloride 1,000 ml @ 125 mls/hr Q8H IV Last administered on 08/27/18at 01:34; Admin Dose 125 MLS/HR; Start 08/26/18 at 23:30 Ondansetron HCl (Zofran Inj) 4 mg Q6H PRN IV NAUSEA AND/OR VOMITING; Start 08/26/18 at 23:30 Acetaminophen (Tylenol Liquid) 650 mg Q6H PRN PO PAIN LEVEL 1-3 OR FEVER; Start 08/26/18 at 23:30 Pantoprazole (Protonix Iv) 40 mg DAILY@06 IV Last administered on 08/27/18at 05:33; Admin Dose 40 MG; Start 08/27/18 at 06:00 Zolpidem Tartrate (Ambien) 5 mg HS PRN PO INSOMNIA; Start 08/27/18 at 04:00 Hydromorphone HCl (Dilaudid) 1 mg Q4H PRN IV PAIN LEVEL 7-10 Last administered on 08/27/18at 04:22; Admin Dose 1 MG; Start 08/27/18 at 04:00 Non-Formulary Medication 1 SPRAY NASAL QID PRN NASAL MIGRAINE; Start 08/27/18 at 05:00 Oxycodone/ Acetaminophen (Percocet (5/ 325)) 1 tab Q4H PRN PO MODERATE PAIN LEVEL 4-6 Last administered on 08/27/18at 06:21; Admin Dose 1 TAB; Start 08/27/18 at 05:00 Lorazepam (Ativan) 1 mg Q6H PRN IV anxiety; Start 08/27/18 at 05:00 Miscellaneous Information Patients own medicat... BID@,16 XX ; Start 08/27/18 at 10:00 Atenolol (Tenormin) 25 mg BID PO ; Start 08/27/18 at 09:00 Clonazepam (Klonopin) 1 mg QID PRN PO ANXIETY; Start 08/27/18 at 05:00 Duloxetine HCl (Cymbalta) 60 mg DAILY PO ; Start 08/27/18 at 09:00 Lisinopril (Zestril) 10 mg DAILY PO ; Start 08/27/18 at 09:00 Ranitidine HCl (Zantac) 150 mg BID PRN PO HEARTBURN; Start 08/27/18 at 05:00 Zolpidem Tartrate (Ambien) 10 mg QHS PRN PO INSOMNIA; Start 08/27/18 at 05:00 Miscellaneous Information (*Order Clarification Bulletin) MEDICATION REQUIRES CLARIFICATI... Q8H XX ; Start 08/27/18 at 09:00 Allergies: Coded Allergies: hydrocodone (Verified Allergy, Unknown, 12/10/17) morphine (Verified Allergy, Unknown, 12/10/17) Past Surgical History Past Surgical Hx: noncontributory Family History Significant Family History: other (Upper triglyceridemia) Social History Alcohol Use: none Smoking Status: Current every day smoker Drug Use: marijuana, other (CBD) Exam/Review of Systems Exam Vitals Vital Signs Date Temp Pulse Resp B/P (MAP) Pulse Ox O2 O2 Flow FiO2 Time Delivery Rate 08/27/18 98 13 152/78 89 Nasal 1.0 06:00 (102) Cannula 08/27/18 98.4 02:30 Intake and Output 08/26/18 08/26/18 08/27/18 1515:00 23:00 07:00 IntakeIntake Total 4008 ml OutputOutput Total 1500 ml BalanceBalance 2508 ml Exam male who became quite angry when it appeared that he was not going to be getting the plasmapheresis that he had brought himself in for Constitutional: alert, oriented Psych: anxiety Head: normocephalic, atraumatic Results Result Diagram: 08/27/18 0444 08/27/18 0444 Results 24hrs Laboratory Tests Test 08/26/18 21:51 08/26/18 23:29 08/27/18 00:32 08/27/18 01:27 White Blood Count 6.8 # Red Blood Count 5.10 Hemoglobin 15.5 Hematocrit 43.5 Mean Corpuscular 85.3 Volume Mean Corpuscular 30.4 Hemoglobin Mean Corpuscular 35.6 Hemoglobin Concent Red Cell 11.9 Distribution Width Platelet Count 224 Mean Platelet Volume 10.2 Immature 0.700 H Granulocytes % Neutrophils % 64.8 Lymphocytes % 25.9 Monocytes % 7.5 Eosinophils % 0.7 Basophils % 0.4 Nucleated Red Blood 0.0 Cells % Immature 0.050 H Granulocytes # Neutrophils # 4.4 Lymphocytes # 1.8 Monocytes # 0.5 Eosinophils # 0.1 Basophils # 0.0 Nucleated Red Blood 0.0 Cells # Sodium Level 134 L Potassium Level 4.6 Chloride Level 99 Carbon Dioxide Level 23 Anion Gap 12 Blood Urea Nitrogen 14 Creatinine 0.84 Est Glomerular > 60 Filtrat Rate mL/min Glucose Level 328 H Calcium Level 9.9 Total Bilirubin 0.2 Direct Bilirubin 0.00 Indirect Bilirubin 0.2 Aspartate Amino 23 Transf (AST/SGOT) Alanine 12 L Aminotransferase (AL T/SGPT) Alkaline Phosphatase 91 Total Protein 8.0 Albumin 4.6 Globulin 3.40 H Albumin/Globulin 1.35 Ratio Triglycerides Level > 1575 H Lipase 739 H Bedside Glucose 325 H 254 H 194 Test 08/27/18 02:29 08/27/18 03:38 08/27/18 04:27 08/27/18 04:44 Bedside Glucose 178 159 161 White Blood Count 7.3 Red Blood Count 4.96 Hemoglobin 14.7 Hematocrit 42.8 Mean Corpuscular 86.3 Volume Mean Corpuscular 29.6 Hemoglobin Mean Corpuscular 34.3 Hemoglobin Concent Red Cell 12.3 Distribution Width Platelet Count 206 Mean Platelet Volume 10.0 Immature 1.000 H Granulocytes % Neutrophils % 56.3 Lymphocytes % 31.6 Monocytes % 8.8 Eosinophils % 1.7 Basophils % 0.6 Nucleated Red Blood 0.0 Cells % Immature 0.070 H Granulocytes # Neutrophils # 4.1 Lymphocytes # 2.3 Monocytes # 0.6 Eosinophils # 0.1 Basophils # 0.0 Nucleated Red Blood 0.0 Cells # Sodium Level 139 Potassium Level 4.1 Chloride Level 104 Carbon Dioxide Level 23 Anion Gap 12 Blood Urea Nitrogen 12 Creatinine 0.86 Est Glomerular > 60 Filtrat Rate mL/min Glucose Level 174 # Hemoglobin A1c 8.3 H Calcium Level 9.4 Total Bilirubin 0.2 Direct Bilirubin 0.00 Indirect Bilirubin 0.2 Aspartate Amino 20 Transf (AST/SGOT) Alanine 7 L Aminotransferase (AL T/SGPT) Alkaline Phosphatase 77 Total Protein 7.6 Albumin 4.3 Globulin 3.30 H Albumin/Globulin 1.30 Ratio Triglycerides Level > 1575 H Cholesterol Level 231 H LDL Cholesterol, Calculated HDL Cholesterol 27 L Cholesterol/HDL 8.5 Ratio Lipase 158 Thyroid Stimulating 4.940 H Hormone (TSH) Test 08/27/18 05:33 08/27/18 06:23 08/27/18 07:45 Bedside Glucose 160 166 192 Medications Medication Current Medications Ondansetron HCl (Zofran Inj) 4 mg BRIDGE ORDER PRN IV NAUSEA/VOMITING; Start 08/26/18 at 23:00; Stop 08/27/18 at 22:59 Acetaminophen (Tylenol Tab) 650 mg ER BRIDGE PRN PO .MILD PAIN 1-3 OR TEMP Last administered on 08/26/18at 22:51; Admin Dose 650 MG; Start 08/26/18 at 23:00; Stop 08/27/18 at 22:59 Atorvastatin Calcium (Lipitor) 80 mg QHS PO Last administered on 08/27/18 00:48; Admin Dose 80 MG; Start 08/26/18 at 23:00 Gemfibrozil (Lopid) 600 mg BID PO Last administered on 08/26/18 23:57; Admin Dose 600 MG; Start 08/26/18 at 23:00 Niacin (Niacin) 500 mg QHS PO ; Start 08/27/18 at 21:00 Miscellaneous Information 3 gm TIDM A PO ; Start 08/26/18 at 23:00; Status UNV Fish Oil (Fish Oil) 2,000 mg BID PO Last administered on 08/26/18 23:57; Admin Dose 2,000 MG; Start 08/26/18 at 23:00 Diagnostic Test (Pha) (Accu-Chek) 1 ea Q1H XX Last administered on 08/27/18at 07:51; Admin Dose 1 EA; Start 08/26/18 at 23:30 Insulin Human Regular 100 unit/ Sodium Chloride 100 ml @ 0 mls/hr PER PROTOCOL IV Last administered on 08/26/18at 23:55; Admin Dose 7 MLS/HR; Start 08/26/18 at 23:30 Miscellaneous Information (* Miscellaneous Pharmacy Order) Treatment of Hypoglycemia: 1.BG 51... Per protocol XX ; Start 08/26/18 at 23:30 Dextrose (D50w Syringe) 25 ml Q15M PRN IV .DECREASED GLUCOSE; Start 08/26/18 at 23:30 Dextrose (D50w Syringe) 50 ml Q15M PRN IV .DECREASED GLUCOSE; Start 08/26/18 at 23:30 Dextrose/Sodium Chloride 1,000 ml @ 125 mls/hr Q8H IV Last administered on 08/27/18at 01:34; Admin Dose 125 MLS/HR; Start 08/26/18 at 23:30 Ondansetron HCl (Zofran Inj) 4 mg Q6H PRN IV NAUSEA AND/OR VOMITING; Start 08/26/18 at 23:30 Acetaminophen (Tylenol Liquid) 650 mg Q6H PRN PO PAIN LEVEL 1-3 OR FEVER; Start 08/26/18 at 23:30 Pantoprazole (Protonix Iv) 40 mg DAILY@06 IV Last administered on 08/27/18at 05:33; Admin Dose 40 MG; Start 08/27/18 at 06:00 Zolpidem Tartrate (Ambien) 5 mg HS PRN PO INSOMNIA; Start 08/27/18 at 04:00 Hydromorphone HCl (Dilaudid) 1 mg Q4H PRN IV PAIN LEVEL 7-10 Last administered on 08/27/18at 04:22; Admin Dose 1 MG; Start 08/27/18 at 04:00 Non-Formulary Medication 1 SPRAY NASAL QID PRN NASAL MIGRAINE; Start 08/27/18 at 05:00 Oxycodone/ Acetaminophen (Percocet (5/ 325)) 1 tab Q4H PRN PO MODERATE PAIN LEVEL 4-6 Last administered on 08/27/18at 06:21; Admin Dose 1 TAB; Start 08/27/18 at 05:00 Lorazepam (Ativan) 1 mg Q6H PRN IV anxiety; Start 08/27/18 at 05:00 Miscellaneous Information Patients own medicat... BID@ XX ; Start 08/27/18 at 10:00 Atenolol (Tenormin) 25 mg BID PO ; Start 08/27/18 at 09:00 Clonazepam (Klonopin) 1 mg QID PRN PO ANXIETY; Start 08/27/18 at 05:00 Duloxetine HCl (Cymbalta) 60 mg DAILY PO ; Start 08/27/18 at 09:00 Lisinopril (Zestril) 10 mg DAILY PO ; Start 08/27/18 at 09:00 Ranitidine HCl (Zantac) 150 mg BID PRN PO HEARTBURN; Start 08/27/18 at 05:00 Zolpidem Tartrate (Ambien) 10 mg QHS PRN PO INSOMNIA; Start 08/27/18 at 05:00 Miscellaneous Information (*Order Clarification Bulletin) MEDICATION REQUIRES CLARIFICATI... Q8H XX ; Start 08/27/18 at 09:00 RICHELLE VALENCIA MD Aug 27, 2018 08:53
[2018-08-27] MEDS ORDERED: ATENOLOL 25 MG TAB PO SCH (09:00)
[2018-08-27] MEDS ORDERED: LISINOPRIL 10 MG TAB PO SCH (09:00)
[2018-08-27] MEDS ORDERED: DULOXETINE 30 MG CAP DR PO SCH (09:00)
[2018-08-27] MEDS ORDERED: NIACIN 500 MG TAB PO SCH (21:00)
--- NOTE | 2018-08-30 12:01 | CONS ---
Assessment/Plan Assessment/Plan Hospital Course (Demo Recall) #Hypertriglyceridemia -patient's TGA are greater latasha > 1500 however he does not elicit sx of acute pancreatitis, which is is only indication to start plasma exchange -I do agree that he can be started on an insulin gtt however to control his blood sugars -still more than anything, Mr Subramanian needs to be compliant with his diet and medications -I explained that we cannot plasmaphereses to get th patient ready for a neck surgery. Not only would this be an elective procedure, but it is not indicated in this case as there are no signs of pancreatitis. -will touch base with his primary superintendent tests #Chronic Pancreatitis secondary to above -continue current pain regimen #DM -continue insulin per PMD -Hba1c> 8. pt needs better blood sugar control #HTN -continue Atenolol, and lisinopril Thank you for the opportunity to participate in this patients care A total of 40 minutes of face to face time was spent speaking with the patient, of which greater than 50% was spent in counseling and coordination of care and the detailed question and answer session. #(1) Obesity (BMI 30.0-34.9) Status: Chronic Comment: I am in agreement with the patient's assessment and when he is very c areful with his diet this would have a profound and positive effect on his triglycerides. Regrettably he has not done that and lead up to his surgery which has led to the predictable outcome of his triglycerides being high. In terms of whether or not his primary care physician should have written the clearance for surgery I would have to defer that off to her internal thought processes. (2) Familial hypertriglyceridemia Status: Chronic Comment: As noted in prior dictations I am in agreement with the usage of the fabric acid derivative, and the statin medication but especially the higher dose Vascepa which would be at 4 pills twice a day, niacin 500 mg nightly every night combined with aspirin and Metamucil which will block the symptoms and then pushing up on the niacin. In addition better control of the patient's sugars will have a positive outcome. With that assuming that there are no other issues that were discovered in Dr. Yin's evaluation he should be able to be cleared for his neck surgery. These note there is not an indication for an insulin drip at this time (3) Chronic recurrent pancreatitis Status: Chronic Comment: He is not in a state of pancreatitis at this time which would indicate that there is not an emergent or urgent need for plasmapheresis. (4) Type 2 diabetes mellitus without complications Status: Chronic Comment: This time his control is in adequate. Please note that the usage of pioglitazone would also have a beneficial effect on his triglyceride levels. Please note there is not an indication for an insulin drip at this time Qualifiers: Qualified Codes: E11.9 - Type 2 diabetes mellitus without complications; Z79.4 - [facility] (current) use of insulin (5) Noncompliance with medication regimen Status: Chronic Comment: Noted. Please note this patient was not of a mood to discuss this after finding out he would not be receiving plasmapheresis. Consultation Date/Type/Reason Admit Date/Time August 27, 2018 Date of Consultation: Aug 27, 2018 Type of Consult hematology Reason for Consultation consult to start plasma exchange Requesting Provider: ART BRICEÑO MD Date/Time of Note DATE: 08/30/18 TIME: 11:55 Hx of Present Illness Mr Subramanian is a 52 yo male with a history of multiple episodes of acute pancreatitis secondary to severe hypertriglyceridemia. per records patient's triglyceride level is at times been as elevated at 6000. Patient has required over 20 hospitalizations within the last two years for chronic pancreatitis. Patient currently is followed by cardiology and is on atorvastatin forty milligrams a day, omega-3, gemfibrozil 600 milligrams b.i.d. and niacin. Patient has required IV insulin during past hospitalization. Since 2016 patient has received plasmapheresis 4x. 06/2017 patient was referred to a top lift nailer for consideration of plasmapheresis given the uncontrollable hypertriglyceridemia. he was subs equently plasmapheresis to and his triglyceride level went down to 464 after treatment 10/26/17 patient was admitted to [facility] again for therapeutic plasmapheresis for control of severe hypertriglyceridemia. Patient received plasmapheresis x 3 with the outpatient plan of monitoring his triglycerides every three months and performing plasmapheresis if the triglycerides exceeded 1 000. patient was also started on fish oil during this hospitalization. After three doses of plasmapheresis and the insulin drip, his triglycerides decreased to 273. .12/12/17- 12/15/17 pt admitted to [facility] where he received 3 days of plasma exchange. TGA went from > 1575 to 480 prior to discharge 02/22/18 TGA 1759 03/08/18 - 03/12/18 pt received 3 doses of plasma exchange. on discharge pt;s TGA level was 430. severe pancreatitis pain 04/08/18 TGA 837 Currently: 08/27/18 pt presents to [facility] stating that he needs neck surgery for a herniated disc. As part of the preop workup he was noted to have exceedingly high TGA's. He thus presented to [facility] wanting emergent plasma exchange to bring down his TGA level. He states he has mild abdominal pain. On admission his lipas was 739 which decreased to 158 with fluid hydration. pt was in the ICU to start a insulin gtt. His HG A1C is 8.3. Constitutional: no complaints Eyes: no complaints ENT: no complaints Respiratory: no complaints Cardiovascular: no complaints Gastrointestinal: pain (mild epigasttic abdominal pain) Genitourinary: no complaints Musculoskeletal: no complaints Skin: no complaints Past Medical History Medical History: diabetes (Type II), high cholesterol (Medial hypertriglyceridemia with a history of pancreatitis), hypertension, hypothyroid, other (Cervical spine disc disease with radiculopathy; migraines syndrome) Home Meds Active Scripts Aspirin* (Aspirin* Chew) 81 Mg Tab.chew, 81 MG PO DAILY, #90 TAB.CHEW Prov:DOUGLAS BAE MD 06/30/18 Niacin* (Niacin*) 500 Mg Tablet, 500 MG PO QHS, #30 TAB Prov:DOUGLAS BAE MD 06/30/18 Icosapent Ethyl (VASCEPA) 1 Gm Capsule, 3 GM PO TIDM A, #30 CAP Prov:DOUGLAS BAE MD 06/30/18 Lisinopril* (Lisinopril*) 10 Mg Tablet, 10 MG PO DAILY, #30 TAB Prov:DOUGLAS BAE MD 06/30/18 Atorvastatin* (Atorvastatin*) 80 Mg Tablet, 80 MG PO QHS, #90 TAB Prov:DOUGLAS BAE MD 06/30/18 Atenolol* (Atenolol*) 25 Mg Tablet, 25 MG PO BID, #60 TAB 5 Refills Prov:DOUGLAS BAE MD 06/30/18 Taylor-3/Dha/Epa/Fish Oil (FISH OIL EC 1,000 MG SOFTGEL) 1 Each Capsule.dr, 2000 MG PO BID, #60 CAP 4 Refills Prov:DOUGLAS BAE MD 06/30/18 Metformin* (Glucophage*) 500 Mg Tab, 500 MG PO BID WITH MEALS, #60 TAB 3 Refills Prov:DOUGLAS BAE MD 06/30/18 Insulin Aspart* (Novolog Insulin Pen*) 100 Unit/Ml Soln, 10 UNIT SC WITH MEALS, #5 EA 5 Refills Prov:DOUGLAS BAE MD 06/30/18 Gemfibrozil* (Gemfibrozil*) 600 Mg Tablet, 600 MG PO BID, #60 TAB 3 Refills Prov:DOUGLAS BAE MD 06/30/18 Gabapentin* (Gabapentin*) 400 Mg Capsule, 400 MG PO TID, #90 CAP Prov:DOUGLAS BAE MD 06/30/18 Duloxetine Hcl* (Cymbalta*) 30 Mg Capsule.dr, 60 MG PO DAILY, #30 CAP Prov:DOUGLAS BAE MD 06/30/18 Insulin Glargine,Hum.rec.anlog (Basaglar Kwikpen U-100) 100 Unit/1 Ml Insuln.pen, 20 UNIT SC QHS, #30 EA Prov:DOUGLAS BAE MD 06/30/18 Albuterol Sulfate (Proair Respiclick) 90 Mcg Aer.pow.ba, 1 PUFF INHALATION Q4, #1 BOTTLE Prov:DOUGLAS BAE MD 06/30/18 Pantoprazole (Protonix) 40 Mg Tabec, 40 MG PO DAILY for 30 Days, #30 TAB 4 Refills Prov:CHANTELLE PARRA MD 12/16/17 Lidocaine (Lidoderm) 1 Each Adh..patch, 1 EACH TP DAILY for 30 Days, #30 PATCH 6 Refills Prov:CHANTELLE PARRA MD 12/16/17 Oxycodone HCl/Acetaminophen (Oxycodone-Acetaminophen 5-325) 1 Each Tablet, 1 TAB PO Q6H PRN for PAIN LEVEL 4-6 for 7 Days, #20 TAB Prov:CHANTELLE PARRA MD 12/16/17 Neomycin/Polymyxin/Bacitr/Hc* (Cortisporin* Topical) 15 Gm Oint, 1 APPLIC TOP TID for 10 Days, #1 TUB 2 Refills Prov:CHANTELLE PARRA MD 12/16/17 Reported Medications Ranitidine Hcl* (Ranitidine Hcl*) 75 Mg Tablet, 150 MG PO BID PRN for HEARTBURN, #60 TAB 03/05/18 Phentermine Hcl (Phentermine Hcl) 37.5 Mg Tablet, 37.5 MG PO DAILY, TAB 03/05/18 Liraglutide (Victoza 3-Alvaro) 0.6 Mg/0.1 Ml Pen.injctr, 1.8 MG SQ DAILY, SYR 12/10/17 Sumatriptan* Nasal (Sumatriptan* Nasal) 5 Mg [place], 5 MG NASAL DAILY PRN for MIGRAINE HEADACHE, SPRAY If headache returns/persists, may repeat dose once after 2 hours; MAX 40 mg/24 hours 12/10/17 Clonazepam* (Klonopin*) 1 Mg Tablet, 1 MG PO QID PRN for ANXIETY, TAB 12/10/17 Hydromorphone Hcl* (Hydromorphone Hcl*) 2 Mg Tablet, 2 MG PO TID PRN for PAIN, TAB 12/10/17 Zolpidem Tartrate* (Zolpidem Tartrate*) 10 Mg Tablet, 10 MG PO QHS PRN for INSOMNIA, #30 TAB 12/10/17 Hydroxyzine Hcl* (Hydroxyzine Hcl*) 25 Mg Tablet, 25 MG PO Q8H PRN for ITCHING, #30 TAB 12/10/17 Discontinued Reported Medications Phentermine Hcl (Phentermine Hcl) 37.5 Mg Tablet, 37.5 MG PO DAILY, TAB 03/12/18 Metoclopramide Hcl* (Metoclopramide Hcl*) 10 Mg Tablet, 10 MG PO Q8H PRN for NAUSEA AND OR VOMITING, TAB 12/10/17 Allergies: Coded Allergies: hydrocodone (Verified Allergy, Unknown, 12/10/17) morphine (Verified Allergy, Unknown, 12/10/17) Past Surgical History Past Surgical Hx: noncontributory Family History Significant Family History: no pertinent family hx Social History Alcohol Use: none Smoking Status: Current every day smoker Drug Use: marijuana, other (CBD) Exam/Review of Systems Exam Vitals Vital Signs Date Temp Pulse Resp B/P (MAP) Pulse Ox O2 O2 Flow FiO2 Time Delivery Rate 08/27/18 98.5 96 12 110/20 94 Room Air 08:00 (50) 08/27/18 1.0 06:00 Constitutional: alert, oriented Psych: anxiety, depression Head: normocephalic Eyes: nl conjunctiva ENMT: nl external ears & nose Neck: supple Respiratory: clear to auscultation Cardiovascular: regular rate and rhythm Gastrointestinal: soft Musculoskeletal: nl extremities to inspection Results Result Diagram: 08/27/18 0444 08/27/18 0444 ARAVIND EDEN M.D. Aug 30, 2018 12:01
--- NOTE | 2018-08-31 00:37 | DS ---
DATE OF ADMISSION: 08/26/2018 DATE OF DISCHARGE: 08/27/2018 INDICATION FOR ADMISSION: 1. Severe hypertriglyceridemia. 2. Recurrent pancreatitis. 3. Chronic cervical neck pain and spine pathology for which patient is scheduled for outpatient proc edure. 4. Hypotension. 5. Diabetes. 6. Chronic anxiety. 7. Chronic back pain. DISPOSITION: Home, self-care. The patient left the hospital against medical advice despite multiple attempts to convince him otherw ise. Note is that the patient seems to be noncompliant with therapy. Hemoglobin A1c came back 8.3. Triglyceride levels were greater than 1600. Lipase level on arrival was 739, but this has resolved by the time the patient leave the hospital. HOSPITAL COURSE: Full details are available in chart for review. In summary, this 53-year-old male known to our service from recurrent admission for chronic familial hypertriglyceridemia causing recur rent pancreatitis. The patient had come in with symptoms of abdominal pain and was admitted for the same. He was seen by hematology who was going to treat him with plasmapheresis; however, after the e ndocrinologist spoke with him regarding the need for compliance to medication, the patient got upset and decided to leave the hospital against medical advice. I tried to speak with him and encouraged h im to stay and be treated, but the patient declined. At this time; however, he is fairly stable. Hi s blood sugars are better controlled. His abdominal pain is resolved. The patient was fully cogniza nt of the risks of leaving including the possibility of if he is not well treated. He was able to ____ this and at this time despite my best efforts, the patient decided to leave____ in followup. Dictated By: YAJAIRA CURIEL MD BA/NTS Conf#: [id number] DID#: [id number] CC: BLAYNE JEROME MD;*EndCC*
== END 2018-08-27 09:00 | disposition left against medical advice (07) | DRG 642 ==
LOC: E/R 20:34 → ICU 22:43 → UNDOADMIN 22:43 → EDBEDREQ 22:54 → CANRESERV 22:56 → EDBEDREQSVC 23:13 → EDBEDREQ 08-27 01:18
PROVIDERS: ADMIT Family Medicine; ATTEND Family Medicine
DX: E78.1 Pure hyperglyceridemia (principal); K86.1 Other chronic pancreatitis; M50.20 Other cervical disc displacement, unspecified cervical region; F41.9 Anxiety disorder, unspecified; F17.200 Nicotine dependence, unspecified, uncomplicated; J45.909 Unspecified asthma, uncomplicated; I10 Essential (primary) hypertension; E11.9 Type 2 diabetes mellitus without complications; M50.10 Cervical disc disorder with radiculopathy, unspecified cervical region; Z79.4 Long term (current) use of insulin; Z91.14 Patient's other noncompliance with medication regimen
CPT/HCPCS: 36415; 80053; 80061; 82962; 83036; 83690; 84443; 84478; 85025; 87081; 96374; 96375; C9113; J1170; J1815; J2405; J3360; J7030; J7042; J7999